=== PATIENT | male | born 1990 | race Caucasian/White ===

== ENCOUNTER 2017-05-19 04:59 | Emergency (ER) | payer MEDICAID, SELFPAY ==
[2017-05-19 05:00] VITALS: BP 143/128; PULSE 86; RESP 18; TEMP 36.8; O2SAT 100; BMI 25.0
--- NOTE | 2017-05-19 05:18 | NURSING ---
THIS RN AND SPOKE WITH PATIENT ABOUT WHAT HAPPENED THIS EVENING. PT STATES HE IS NOT SUICIDAL OR HOMICIDAL.
--- NOTE | 2017-05-19 05:22 | ED.VISSUMM ---
- ER Visit Summary Date of Service: 05/19/17 Chief Complaint: Psychiatric evaluation History of Present Illness: The patient is a 26 M presenting for evaluation secondary to psychiatric evaluation. Patient has a history of quadriplegia and is living in a [facility] facility. Apparently the patient recently learned that his girlfriend had cheated on him. Nursing staff states that the patient threatened to hang himself with his phone cord. They states that when they told him that they would take away his phone cord that he said that he would hang himself with his bed sheets. Patient actually denies being suicidal homicidal and denies any allegations of being suicidal. He denies any constitutional symptoms at this time. Physical Examination: Vital signs within normal limits. Well-nourished male no acute distress. Neck supple heart regular lungs clear abdomen soft nontender. Patient alert and oriented, quadriplegia unchanged in the patient. Patient has normal speech pattern logical goal directed sequential thoughts no suicidal or homicidal ideation normal stable appropriate affect good insight good judgment. Test Results: None indicated Emergency Department Course and Treatment: Patient presented for a psychiatric evaluation. Nursing staff states that the patient threatened to hang himself with multiple different things within his room. 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 Patient states that he would never actually hurt himself though because he has a 2-year-old daughter. Agent states that when nursing staff threatened to take his charging cord he started to list off the variety of other ways that he could kill himself if he wanted to but states that he has no desire to do so. While the patient is being cooperative in the emergency department and easy to deal with, he is strong-willed and I can understand that potentially he is difficult to deal with on a day-to-day basis at his [facility]. Potentially was sent to the emergency department out of an element of frustration, but I believe the patient not to be a risk to himself or others at this point and I do not believe that full psychiatric workup and evaluation by crisis is appropriate at this point. Patient did verbally contract for safety, and I believe the patient can safely be discharged back to the [facility]. Disposition: Discharge Impression: 1. Psychiatric evaluation 2. History of quadriplegia This note was generated with [employer] dictation software. It may contain incorrect words, spelling, and punctuation that were not noted in review of the chart prior to signing ED Disposition - Plan for ED Patient: Disposition: Home or Assisted Living Chief Complaint: Suicidal Diagnosis: Encounter for psychological evaluation Instructions: ED Blank Diagnosis Form Referrals: Frank Ibarra [Primary Care Provider] - As Needed
--- NOTE | 2017-05-19 05:30 | ED.DCSUM_ITS ---
- ER Visit Summary Date of Service: 05/19/17 Chief Complaint: Psychiatric evaluation History of Present Illness: The patient is a 26 M presenting for evaluation secondary to psychiatric evaluation. Patient has a history of quadriplegia and is living in a [facility] facility. Apparently the patient recently learned that his girlfriend had cheated on him. Nursing staff states that the patient threatened to hang himself with his phone cord. They states that when they told him that they would take away his phone cord that he said that he would hang himself with his bed sheets. Patient actually denies being suicidal homicidal and denies any allegations of being suicidal. He denies any constitutional symptoms at this time. Physical Examination: Vital signs within normal limits. Well-nourished male no acute distress. Neck supple heart regular lungs clear abdomen soft nontender. Patient alert and oriented, quadriplegia unchanged in the patient. Patient has normal speech pattern logical goal directed sequential thoughts no suicidal or homicidal ideation normal stable appropriate affect good insight good judgment. Test Results: None indicated Emergency Department Course and Treatment: Patient presented for a psychiatric evaluation. Nursing staff states that the patient threatened to hang himself with multiple different things within his room. 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 Patient states that he would never actually hurt himself though because he has a 2-year-old daughter. Agent states that when nursing staff threatened to take his charging cord he started to list off the variety of other ways that he could kill himself if he wanted to but states that he has no desire to do so. While the patient is being cooperative in the emergency department and easy to deal with, he is strong-willed and I can understand that potentially he is difficult to deal with on a day-to-day basis at his long-term. Potentially was sent to the emergency department out of an element of frustration, but I believe the patient not to be a risk to himself or others at this point and I do not believe that full psychiatric workup and evaluation by crisis is appropriate at this point. Patient did verbally contract for safety, and I believe the patient can safely be discharged back to the long-term. Disposition: Discharge Impression: 1. Psychiatric evaluation 2. History of quadriplegia This note was generated with [employer] dictation software. It may contain incorrect words, spelling, and punctuation that were not noted in review of the chart prior to signing ED Disposition - Plan for ED Patient: Disposition: Home or Assisted Living Chief Complaint: Suicidal Diagnosis: Encounter for psychological evaluation Instructions: ED Blank Diagnosis Form Referrals: Frank Ibarra [Primary Care Provider] - As Needed
--- NOTE | 2017-05-19 05:43 | NURSING ---
THIS RN SPOKE WITH SHAYNA FROM [facility] AND INFORMED HER PT WOULD BE RETURNING TO [facility] WHEN TRANSPORT IS AVAILABLE. DEVELOPMENT TEAM LEAD VERBALIZED UNDERSTANDING
[2017-05-19 06:25] VITALS: RESP 16
== END 2017-05-19 06:26 | disposition home or self-care (01) ==
PROVIDERS: Emergency Provider Emergency Medicine; Family Provider Family Medicine; PCP Family Medicine
DX: G82.50 Quadriplegia, unspecified (principal)
CPT/HCPCS: 99284

== ENCOUNTER 2017-09-28 15:19 | Emergency (ER) | payer MEDICAID, SELFPAY ==
[2017-09-28 15:22] VITALS: BP 184/145; PULSE 88; RESP 18; TEMP 36.7; O2SAT 98; BMI 19.6
--- NOTE | 2017-09-28 15:51 | VDLE_ITS ---
Reason For Study: PAIN Procedure LEFT Exam performed portable in ED. GSV is normal. Pt is a paraplegic. CFV is compressible, spontaneous, phasic, A preliminary report was called and/or faxed competent, and demonstrates normal to ED. augmentation. FV is compressible, spontaneous, phasic, competent and demonstrates normal augmentation. POP V is compressible, spontaneous, phasic, competent and demonstrates normal augmentation. T/P Trunk is compressible. PTV is compressible. LT PerV is compressible. Interpretation Summary Deep veins of the left lower extremity are patent and compressible segmentally. There is no evidence of left lower extremity deep vein thrombosis. Valvular competence appears intact within the proximal deep venous system on the left . The left greater saphenous vein appears patent and compressible segmentally. Ordering Physician: Sidney Peralta Referring Physician: ADAM LORA Performed By: Jennifer Villegas, TC, RVT
--- NOTE | 2017-09-28 15:51 | RAD_ITS ---
STUDY: X-RAY - LUMBAR SPINE REASON FOR EXAM: Male, 26 years old. Back pain. TECHNIQUE: 3 view(s) of the lumbar spine were obtained. COMPARISON: CT of the lumbar spine, May 05, 2016 FINDINGS: Normal lumbar lordosis. There is no substantial scoliosis. There is a normal alignment of the vertebrae. Normal vertebral bodies and endplates. Normal disc space heights. There is no evidence of acute fracture or loss of vertebral axial height. The soft tissue structures are unremarkable. RAD/Lumbar Spine 2 or 3 Views IMPRESSION: No acute abnormality of the lumbar spine or major interval change. Electronically Signed: Michael Palacios DO at 17:47 EDT Tel [phone], Service support ,
--- NOTE | 2017-09-28 15:54 | ED.VISSUMM ---
- ER Visit Summary Date of Service: 09/28/17 Chief Complaint: Back pain History of Present Illness: The patient is a 26 M with a history of paraplegia. He is bedbound. He presents with increasing lower back pain. Denies any new injuries. He also has pain and swelling down his left leg into his foot. Denies any history of DVT. Denies any abdominal pain or GI symptoms. Denies symptoms. Denies fever. He does have some numbness and tingling in his left leg. Patient also reports that his left foot was in the sun and he believes he has a sunburn to the left foot.. Physical Examination: Hypertensive. Otherwise vitals unremarkable. Patient alert and oriented. Heart regular. Lungs clear. Abdomen soft and nontender. Lumbar spine diffusely tender to palpation. Overlying skin appears normal. Lower extremity exam shows paraplegia. On inspection he has some erythema to his left foot that ends abruptly in a discrete line at the level of his pant leg. Left leg is diffusely swollen about the foot and ankle. Good range of motion to the joints. Patient reports no sensation in his lower extremities. Test Results: Lumbar spine x-ray and duplex of the left leg pending. Emergency Department Course and Treatment: Patient treated with morphine, Zofran, and labetalol while awaiting results. Ultrasound was negative. Lumbar x-ray showed degenerative changes. Nothing acute. Repeat blood pressure was within normal limits. Patient required additional pain medication. There is nothing to suggest infection, GI, , vascular pathology. Patient will be discharged to his nursing facility. Follow-up with his doctor and/or pain management. Return for any new or worsening symptoms Treatment Plan: As above Disposition: Discharged Impression: 1. Chronic lumbar back pain This note was generated with Vanderdroidation software. It may contain incorrect words, spelling, and punctuation that were not noted in review of the chart prior to signing ED Disposition - Plan for ED Patient: Chief Complaint: Lower Extremity Injury Referrals: Frank Ibarra MD [Primary Care Provider] -
--- NOTE | 2017-09-28 15:57 | ED.DCSUM_ITS ---
- ER Visit Summary Date of Service: 09/28/17 Chief Complaint: Back pain History of Present Illness: The patient is a 26 M with a history of paraplegia. He is bedbound. He presents with increasing lower back pain. Denies any new injuries. He also has pain and swelling down his left leg into his foot. Denies any history of DVT. Denies any abdominal pain or GI symptoms. Denies symptoms. Denies fever. He does have some numbness and tingling in his left leg. Patient also reports that his left foot was in the sun and he believes he has a sunburn to the left foot.. Physical Examination: Hypertensive. Otherwise vitals unremarkable. Patient alert and oriented. Heart regular. Lungs clear. Abdomen soft and nontender. Lumbar spine diffusely tender to palpation. Overlying skin appears normal. Lower extremity exam shows paraplegia. On inspection he has some erythema to his left foot that ends abruptly in a discrete line at the level of his pant leg. Left leg is diffusely swollen about the foot and ankle. Good range of motion to the joints. Patient reports no sensation in his lower extremities. Test Results: Lumbar spine x-ray and duplex of the left leg pending. Emergency Department Course and Treatment: Patient treated with morphine, Zofran , and labetalol while awaiting results. Ultrasound was negative. Lumbar x-ray showed degenerative changes. Nothing acute. Repeat blood pressure was within normal limits. Patient required additional pain medication. There is nothing to suggest infection, GI, , vascular pathology. Patient will be discharged to his nursing facility. Follow -up with his doctor and/or pain management. Return for any new or worsening symptoms Treatment Plan: As above Disposition: Discharged Impression: 1. Chronic lumbar back pain This note was generated with [employer] software. It may contain incorrect words, spelling, and punctuation that were not noted in review of the chart prior to signing ED Disposition - Plan for ED Patient: Chief Complaint: Lower Extremity Injury Referrals: Frank Ibarra MD [Primary Care Provider] -
[2017-09-28] MEDS: Morphine 4 MG/ML Syringe IV (17:00)
[2017-09-28] MEDS: Ondansetron 4 MG/2 ML Vial IV (17:00)
[2017-09-28 18:25] VITALS: BP 117/81; PULSE 96; RESP 18; O2SAT 96
--- NOTE | 2017-09-28 18:36 | ED.DEP ---
ED Disposition - Plan for ED Patient: Chief Complaint: Lower Extremity Injury Instructions: ED Chronic Pain Management Referrals: Frank Ibarra MD [Primary Care Provider] -
[2017-09-28 19:06] VITALS: BP 83/66; PULSE 73; RESP 14; O2SAT 98
--- NOTE | 2017-09-28 19:08 | NURSING ---
Entered room to administer Morphine as ordered. Pt found to be hypotensive. Md Peralta notified and orders received.
[2017-09-28] MEDS: 0.9% Normal Saline 1,000 ML 500 ML IV (19:16)
[2017-09-28 19:52] VITALS: BP 107/76; PULSE 79; RESP 18; O2SAT 96
[2017-09-28] MEDS: Ketorolac 15 MG/ML Vial IV (20:23)
[2017-09-28 20:24] VITALS: BP 108/97; PULSE 74; RESP 16; O2SAT 96
[2017-09-28 21:12] VITALS: BP 114/68; PULSE 91; RESP 20
[2017-09-28] MEDS: fentaNYL 100 MCG/2 ML Ampul 25 MCG IV (21:20)
== END 2017-09-28 22:03 | disposition home or self-care (01) ==
LOC: ED 15:57
PROVIDERS: Emergency Provider Emergency Medicine; Family Provider Family Medicine; PCP Family Medicine
DX: M54.5 Low back pain (principal); G89.29 Other chronic pain; G82.20 Paraplegia, unspecified; F17.210 Nicotine dependence, cigarettes, uncomplicated; Z87.440 Personal history of urinary (tract) infections; Z79.02 Long term (current) use of antithrombotics/antiplatelets; Z79.891 Long term (current) use of opiate analgesic; Z79.899 Other long term (current) drug therapy
CPT/HCPCS: 72100; 93971; 96361; 96374; 96375; 99285; J7030; A4216; J2405

== ENCOUNTER 2017-10-30 01:19 | Emergency (ER) | payer MEDICAID, SELFPAY ==
[2017-10-30 01:23] VITALS: BP 112/50; PULSE 86; RESP 15; TEMP 37.3; O2SAT 99; BMI 22.6
[2017-10-30] MEDS: Ondansetron 4 MG/2 ML Vial IV (01:53)
[2017-10-30] MEDS: 0.9% Normal Saline 1,000 ML 1000 ML IV (01:53)
[2017-10-30 01:57] LABS: Absolute Lymphocyte Count 0.41 X10^3/ul (0.83-4.51); Absolute Neutrophil Count 10.8 X10^3/uL (2.0-7.7); Basophil# 0.02 X10^3/uL; Basophil% 0.2 % (0-1); Eosinophil# 0.05 X10^3/uL; Eosinophils% 0.4 % (0-5); Hematocrit 45.7 % (40-54); Hemoglobin 15.4 g/dl (13.0-16.5); Lymphocyte # 0.41 X10^3/ul (4.0); Lymphocyte % 3.4 % (19-41); Mean Corp Hgb Conc 33.7 g/gl (32-36); Mean Corpuscular Hgb 31.1 pg (27.0-32.0); Mean Corpuscular Volume 92.3 fL (80-94); Mean Platelet Vol. 11.5 fl (6.2-12.0); Monocyte# 0.89 X10^3/uL; Monocyte% 7.3 % (0-10); Neutrophil # 10.81 X10^3/uL (2.7-7.7); Neutrophil % 88.4 % (47-70); Platelet Count 116 K/mm3 (150-450); RBC Distribution Width CV 14.6 % (11.6-14.6); Red Blood Count 4.95 M/mm3 (4.6-6.2); White Blood Count 12.2 K/mm3 (4.4-11.0)
[2017-10-30 02:02] LABS: POSITIVE COUNT NO; POSITIVE MORPHOLOGY NO
[2017-10-30 02:05] LABS: Differential Indicated SCAN CRITERIA MET; POSITIVE DIFFERENTIAL YES
[2017-10-30 02:08] LABS: Anion Gap 6 (5-15); BUN 6 mg/dL (7-18); BUN/Creat Ratio 14.1 RATIO (10-20); Calcium,Total 8.6 mg/dL (8.5-10.1); Chloride 107 mmol/L (98-107); Creatinine, Serum 0.42 mg/dL (0.70-1.30); EST Glomerular Filtration Rate 256 mL/min (>60); Est Glom Filt Rate - Afr Amer 310 mL/min (>60); Estimated Creatinine Clearance 254.84 ml/min; Glucose 132 mg/dL (74-106); Potassium 3.8 mmol/L (3.5-5.1); Sodium Level 141 mmol/L (136-145)
[2017-10-30 02:23] LABS: Differential Comment SCANNED
[2017-10-30 03:59] VITALS: BP 125/53; PULSE 67; RESP 15; O2SAT 97
--- NOTE | 2017-10-30 04:00 | ED.VISSUMM ---
- ER Visit Summary Date of Service: 10/30/17 Chief Complaint: Patient presents because of nausea and vomiting. History of Present Illness: The patient is a 26 M who was seen yesterday at [facility] facility. His records were obtained and reviewed and documented on written chart. He has significant workup. The nausea and vomiting are new since his visit at outside facility. He reports nausea and vomiting several times today. He also reports swollen left forearm with redness to his skin. He states the abrasions are secondary to blunt trauma. He denies fever, chills night sweats. He denies headache, visual, ocular auditory symptoms. He denies any chest pain or shortness of breath. He denies cough. He does report mild epigastric pain with nausea and vomiting. He has a colostomy and has had no diarrhea, blood or maroon colored stool. He is paraplegic. Physical Examination: Vital signs are marked for slight elevation blood pressure 125/53. He is not hypoxic nor is he febrile. HEENT is remarkable poor dentition and dry mucosa. Pupils equal round reactive paradoxic muscle intact. Sclerae anicteric. TMs normal. Trach is midline. Neck is supple. There is no cervical lymphadenopathy. Lungs are clear to auscultation. Heart is regular. Abdomen is soft nontender. Colostomy noted left side and functional. He has mild edema of both lower extremities. Suspect dependent edema since he is paraplegic. Examination left forearm reveals cellulitis. There is no epitrochlear or axillary lymphadenopathy. There are abrasions and most likely nidus for his infection. Test Results: White count is elevated 12.2 with 88 segs. His white count was elevated yesterday from outside facility records. Electronic panels unremarkable. Emergency Department Course and Treatment: To evaluate patient since he has evidence of cellulitis left forearm CBC, BMP were obtained and compared to results from yesterday. He received a gram of Ancef. After reviewing his records Bactrim was added since there is a history of MRSA. Since he does not meet sepsis criteria who will be discharged back to nursing facility. Treatment Plan: Prescription for cephalexin 500 mg 4 times daily and Bactrim DS twice daily for 7 days. Disposition: Discharged to return to nursing facility Impression: 1. Cellulitis left forearm initial encounter 2. Nausea and vomiting 3. History of paraplegia 4. History of MRSA 5. History of depression anxiety This note was generated with Dragon dictation software. It may contain incorrect words, spelling, and punctuation that were not noted in review of the chart prior to signing ED Disposition - Plan for ED Patient: Disposition: Longterm Facility Chief Complaint: Nausea/Vomiting Instructions: ED Nausea Vomiting, ED Infec Skin Cellulitis Prescriptions: Smz/Tmp Ds [Bactrim Ds] 1 tab PO BID #14 tab Cephalexin 500 mg PO 4X/DAY #28 cap Referrals: Frank Ibarra MD [Primary Care Provider] - 3-5 Days if not improving
[2017-10-30] MEDS: Cefazolin 1 GM/50 ML BAG IV (04:02)
[2017-10-30] MEDS: Smz/Tmp Ds Tablet 1 TABLET PO (04:04)
--- NOTE | 2017-10-30 04:43 | ED.RN ---
ATTEMPTED TO CALL REPORT TO [facility] BUT NO ONE ANSWERED THE PHONE EITHER TIME AN ATTEMPT WAS MADE.
[2017-10-30 04:44] VITALS: BP 107/65; PULSE 75; RESP 16; O2SAT 95
== END 2017-10-30 05:02 | disposition skilled nursing facility (03) ==
PROVIDERS: Emergency Provider Emergency Medicine; Family Provider Family Medicine; PCP Family Medicine
DX: L03.114 Cellulitis of left upper limb (principal); R11.2 Nausea with vomiting, unspecified; G82.20 Paraplegia, unspecified; E86.0 Dehydration; F32.9 Major depressive disorder, single episode, unspecified; F41.9 Anxiety disorder, unspecified; Z86.14 Personal history of Methicillin resistant Staphylococcus aureus infection; Z93.3 Colostomy status; Z79.891 Long term (current) use of opiate analgesic; Z79.899 Other long term (current) drug therapy
CPT/HCPCS: 80048; 85025; 96361; 96365; 96375; 99285; A4216; J2405

== ENCOUNTER 2017-12-05 12:54 | Emergency (ER) | payer MEDICAID, SELFPAY ==
[2017-12-05 12:55] VITALS: BP 103/63; PULSE 72; RESP 16; TEMP 36.6; O2SAT 96; BMI 19.5
--- NOTE | 2017-12-05 13:31 | RAD_ITS ---
STUDY: X-RAY - LEFT FOOT CLINICAL: Left foot pain, fracture and abscess on left foot. History of transverse myelitis. TECHNIQUE: 3 view(s) of the foot. COMPARISON: None. FINDINGS: There is osteopenia. There is collapse of the lateral aspect of the navicular suggestive of Romano Farr syndrome. Normal visualized subtalar, talonavicular, calcaneocuboid, tarsal and tarsometatarsal articulations. Normal metatarsi. Normal metatarsophalangeal joint of the great toe. Normal tibial and fibular sesamoid bones. Normal interphalangeal joint of the great toe. Normal phalanges of the great toe. Normal second through fifth metatarsophalangeal joints. Normal interphalangeal joints and phalanges of the lesser toes. There is mild soft tissue swelling at the dorsal aspect of the proximal forefoot. 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 Electronically Signed: Chente Alvarado MD at 14:52 EDT Tel , Service support ,
[2017-12-05 13:50] LABS: Absolute Lymphocyte Count 1.49 X10^3/ul (0.83-4.51); Absolute Neutrophil Count 3.7 X10^3/uL (2.0-7.7); Basophil# 0.02 X10^3/uL; Basophil% 0.3 % (0-1); Eosinophil# 0.15 X10^3/uL; Eosinophils% 2.6 % (0-5); Hematocrit 45.3 % (40-54); Hemoglobin 14.5 g/dl (13.0-16.5); Lymphocyte # 1.49 X10^3/ul (4.0); Lymphocyte % 25.6 % (19-41); Mean Corpuscular Hgb 29.9 pg (27.0-32.0); Mean Corpuscular Volume 93.4 fL (80-94); Mean Platelet Vol. 10.9 fl (6.2-12.0); Monocyte# 0.47 X10^3/uL; Monocyte% 8.1 % (0-10); Neutrophil # 3.69 X10^3/uL (2.7-7.7); Neutrophil % 63.2 % (47-70); POSITIVE COUNT NO; POSITIVE DIFFERENTIAL NO; POSITIVE MORPHOLOGY NO; Platelet Count 149 K/mm3 (150-450); Red Blood Count 4.85 M/mm3 (4.6-6.2); White Blood Count 5.8 K/mm3 (4.4-11.0)
[2017-12-05] MEDS: Morphine 2 MG/ML Syringe IV (13:56)
[2017-12-05 14:01] VITALS: RESP 12
[2017-12-05 14:04] LABS: Anion Gap 8 (5-15); BUN 11 mg/dL (7-18); BUN/Creat Ratio 26.4 RATIO (10-20); Calcium,Total 8.9 mg/dL (8.5-10.1); Chloride 107 mmol/L (98-107); Creatinine, Serum 0.42 mg/dL (0.70-1.30); EST Glomerular Filtration Rate 261 mL/min (>60); Est Glom Filt Rate - Afr Amer 316 mL/min (>60); Glucose 88 mg/dL (74-106); Potassium 3.5 mmol/L (3.5-5.1); Sodium Level 142 mmol/L (136-145)
--- NOTE | 2017-12-05 15:22 | ED.VISSUMM ---
- ER Visit Summary Date of Service: 12/05/17 Chief Complaint: Left foot infection and back pain History of Present Illness: The patient is a 27 M who has a history of transverse myelitis is paraplegic. He states that he was discharged from senior care about 2 weeks ago. In the interim he has developed a blister on the heel of his left foot. He has had prior cellulitis in the foot. He does not have any sensations or cannot say if it is painful part or not. He reports that his significant other took a sterile needle and popped the blister and a large amount of pus came out. She has been doing local wound care for it. He states he has a primary care physician appointment as a new patient on the this month. He states he has pain in his back beginning this morning. He states from time to time he has this pain is related to muscle spasms. He takes oxycodone and baclofen as some of his medications. Physical Examination: Afebrile vital signs stable Gen: Well-nourished well-developed Head: Normocephalic atraumatic Eyes: Perrl EOMI ENT: TMs clear no rhinorrhea moist mucous membranes Neck: Supple no lymphadenopathy no JVD nontender CVS: Regular rate rhythm no murmurs normal S1-S2 Respiratory: No distress clear to auscultation bilaterally chest nontender Abdomen: Soft nontender nondistended normal bowel sounds no masses Back: Painful range of motion. Tender to palpation of the paraspinal musculature Extremity: Nontender there is a deroofed blister on the heel of left foot. There is some mild surrounding erythema. No crepitance. The left foot itself is mildly swollen. This is a chronic finding per the patient. Skin: Normal color no rash Neuro: alert orientated ?3 CN II-XII intact Psych: Normal affect normal mood Test Results: X-rays do not reveal any foreign body obvious osteomyelitis or gas or motion in the heel. Osteopenia noted as well as other chronic changes. CBC showed a platelet count of 149 of uncertain significance. Chemistries negative. Emergency Department Course and Treatment: Patient received morphine for pain and is improved on repeat examination. I am going to write for him to have Keflex and Bactrim. Wound culture was obtained. The patient will need follow-up and I will refer to wound care clinic. He is to monitor for changes return if worsening. Impression: 1. Acute on chronic back pain 2. Left foot cellulitis 3. Thrombocytopenia This note was generated with Ping[employer]amp dictation software. It may contain incorrect words, spelling, and punctuation that were not noted in review of the chart prior to signing ED Disposition - Plan for ED Patient: Disposition: Home or Assisted Living Chief Complaint: Back Instructions: ED Spasm Back No Trauma, ED Infec Skin Cellulitis Prescriptions: Cephalexin [Keflex] 500 mg PO Q6 #40 cap Smz/Tmp Ds [Bactrim Ds] 1 tab PO BID #20 tab Additional Instructions: Please call the wound care clinic for follow-up at
--- NOTE | 2017-12-05 15:27 | ED.DCSUM_ITS ---
- ER Visit Summary Date of Service: 12/05/17 Chief Complaint: Left foot infection and back pain History of Present Illness: The patient is a 27 M who has a history of transverse myelitis is paraplegic. He states that he was discharged from assisted about 2 weeks ago. In the interim he has developed a blister on the heel of his left foot. He has had prior cellulitis in the foot. He does not have any sensations or cannot say if it is painful part or not. He reports that his significant other took a sterile needle and popped the blister and a large amount of pus came out. She has been doing local wound care for it. He states he has a primary care physician appointment as a new patient on the this month. He states he has pain in his back beginning this morning. He states from time to time he has this pain is related to muscle spasms. He takes oxycodone and baclofen as some of his medications. Physical Examination: Afebrile vital signs stable Gen: Well-nourished well-developed Head: Normocephalic atraumatic Eyes: Perrl EOMI ENT: TMs clear no rhinorrhea moist mucous membranes Neck: Supple no lymphadenopathy no JVD nontender CVS: Regular rate rhythm no murmurs normal S1-S2 Respiratory: No distress clear to auscultation bilaterally chest nontender Abdomen: Soft nontender nondistended normal bowel sounds no masses Back: Painful range of motion. Tender to palpation of the paraspinal musculature Extremity: Nontender there is a deroofed blister on the heel of left foot. There is some mild surrounding erythema. No crepitance. The left foot itself is mildly swollen. This is a chronic finding per the patient. Skin: Normal color no rash Neuro: alert orientated ?3 CN II-XII intact Psych: Normal affect normal mood Test Results: X-rays do not reveal any foreign body obvious osteomyelitis or gas or motion in the heel. Osteopenia noted as well as other chronic changes. CBC showed a platelet count of 149 of uncertain significance. Chemistries negative. Emergency Department Course and Treatment: Patient received morphine for pain and is improved on repeat examination. I am going to write for him to have Keflex and Bactrim. Wound culture was obtained. The patient will need follow- up and I will refer to wound care clinic. He is to monitor for changes return if worsening. Impression: 1. Acute on chronic back pain 2. Left foot cellulitis 3. Thrombocytopenia This note was generated with [employer]okeen dictation software. It may contain incorrect words, spelling, and punctuation that were not noted in review of the chart prior to signing ED Disposition - Plan for ED Patient: Disposition: Home or Assisted Living Chief Complaint: Back Instructions: ED Spasm Back No Trauma, ED Infec Skin Cellulitis Prescriptions: Cephalexin [Keflex] 500 mg PO Q6 #40 cap Smz/Tmp Ds [Bactrim Ds] 1 tab PO BID #20 tab Additional Instructions: Please call the wound care clinic for follow-up at
[2017-12-05 15:56] VITALS: BP 117/74; PULSE 72; RESP 18; O2SAT 99
[2017-12-05 15:59] LABS: Probe Check PASS; Staph aureus DNA By PCR POSITIVE (Negative)
[2017-12-05 16:03] LABS: M R Staph aureus DNA By PCR POSITIVE (Negative)
--- NOTE | 2017-12-05 16:14 | ED.RN ---
pt is pos for mrsa. pt prescribed correct meds and dr ochoa aware
== END 2017-12-05 15:57 | disposition home or self-care (01) ==
PROVIDERS: Emergency Provider Emergency Medicine
DX: M54.9 Dorsalgia, unspecified (principal); G89.29 Other chronic pain; L03.116 Cellulitis of left lower limb; D69.6 Thrombocytopenia, unspecified; G37.3 Acute transverse myelitis in demyelinating disease of central nervous system; F32.9 Major depressive disorder, single episode, unspecified; Z79.891 Long term (current) use of opiate analgesic; Z79.899 Other long term (current) drug therapy
CPT/HCPCS: 73630; 80048; 85025; 87070; 87077; 87186; 87205; 87640; 96374; 99283; A4216

== ENCOUNTER 2017-12-15 03:39 | Emergency (ER) | payer MEDICAID, SELFPAY ==
[2017-12-15 03:42] VITALS: BP 154/85; PULSE 83; RESP 18; TEMP 36.1; O2SAT 97; BMI 27.4
--- NOTE | 2017-12-15 04:15 | ED.DCSUM_ITS ---
- ER Visit Summary Date of Service: 12/15/17 Chief Complaint: [] Nausea intermittent dry heaves at nighttime. History of Present Illness: The patient is a 27 M [] she stated over the last few days she has had nausea with dry heaves at night. During the day he seems to be doing okay. He has decreased oral intake of food but drinking fluids. Is not sleeping well. His ostomy is putting out a little bit more diarrhea than normal. There are main concern is that he is likely withdrawing from his narcotics. He was on oxycodone 40 mg twice a day but insurance will not cover it so he was recently changed to Percocet 10 mg twice a day. He also has been off oral morphine since Sunday. He was discharged from [facility] on Sunday as he had altered mental status. They stopped his sertraline as well and felt like he was oversedated. He did get admitted. He saw his family doctor who is a new doctor on . He has been using Zofran with minimal relief. Most of his symptoms are at night. Physical Examination: [] Vital signs reviewed General: Well-nourished well-developed Head: Normocephalic atraumatic Eyes: Pupils equal round and reactive to light extraocular movements intact ENT: TMs clear no hemotympanum no trauma Neck: Nontender full range of motion Cardiovascular: Regular rate rhythm no murmurs normal S1-S2 Respiratory: No distress clear to auscultation bilaterally chest nontender Abdomen: Soft nontender nondistended normal bowel sounds no masses Back: Nontender no CVA tenderness Extremities: Nontender show any paraplegia Skin: Normal color no trauma Neuro alert oriented cranial nerves II through XII intact show any paraplegia Test Results: [] Emergency Department Course and Treatment: [] IV fluids and Phenergan for his symptoms. Lab work obtained. Electrolytes essentially unremarkable. Creatinine 0.5. [place] better after treatment. Was able to rest some. I think he likely is having a little bit of withdrawal symptoms. He will follow-up with his family doctor as an outpatient and they may make some changes to his pain medication regimen. Given a prescription for Phenergan Treatment Plan: [] Disposition: [] Impression: [] Nausea vomiting and insomnia. Suspected narcotic withdrawal This note was generated with Nitrone[employer] software. It may contain incorrect words, spelling, and punctuation that were not noted in review of the chart prior to signing ED Disposition - Plan for ED Patient: Chief Complaint: Nausea/Vomiting/Diarrhea Referrals: Quinten Doan DO [Primary Care Provider] -
[2017-12-15] MEDS: 0.9% Normal Saline 1,000 ML 1000 ML IV (04:22)
[2017-12-15] MEDS: proMETHazine 25 MG/ML Syringe 12.5 MG IV (04:25)
[2017-12-15 04:39] LABS: Anion Gap 10 (5-15); BUN 14 mg/dL (7-18); BUN/Creat Ratio 28.1 RATIO (10-20); Calcium,Total 9.1 mg/dL (8.5-10.1); Chloride 107 mmol/L (98-107); EST Glomerular Filtration Rate 213 mL/min (>60); Est Glom Filt Rate - Afr Amer 258 mL/min (>60); Estimated Creatinine Clearance 156.94 ml/min; Glucose 101 mg/dL (74-106); Potassium 3.8 mmol/L (3.5-5.1); Sodium Level 141 mmol/L (136-145)
--- NOTE | 2017-12-15 04:48 | ED.DEP ---
ED Disposition - Plan for ED Patient: Disposition: Home or Assisted Living Chief Complaint: Nausea/Vomiting/Diarrhea Instructions: ED Withdrawal Narcotic Prescriptions: proMETHazine tablet [Phenergan] 25 mg PO Q6H PRN PRN #10 tab PRN Reason: Nausea Referrals: Quinten Doan DO [Primary Care Provider] -
[2017-12-15 06:49] VITALS: BP 119/71; PULSE 79; RESP 15; O2SAT 97
== END 2017-12-15 06:51 | disposition home or self-care (01) ==
PROVIDERS: Emergency Provider Emergency Medicine; Family Provider Family Medicine; PCP Family Medicine
DX: R11.2 Nausea with vomiting, unspecified (principal); G47.00 Insomnia, unspecified; G82.20 Paraplegia, unspecified; G37.3 Acute transverse myelitis in demyelinating disease of central nervous system; Z72.0 Tobacco use; Z79.2 Long term (current) use of antibiotics; Z79.891 Long term (current) use of opiate analgesic; Z79.899 Other long term (current) drug therapy
CPT/HCPCS: 80048; 96361; 96374; 99283; A4216

== ENCOUNTER 2018-01-02 17:38 | Observation (INO) | payer MEDICAID, SELFPAY ==
[2018-01-02 17:39] VITALS: BP 123/94; PULSE 83; RESP 16; TEMP 36.4; O2SAT 98; BMI 23.3
--- NOTE | 2018-01-02 17:44 | CM.ED ---
Addendum entered by Kallie Padron 01/02/18 18:09: Social Work Note ED physician updated. GEORGES Durbin, AUDIT INTERN Original Note: Social Work Note Face to face with pt to discuss discharge planning. Introduced self and role at [facility]. The pt is paraplegic and his primary caregiver is currently hospitalized. They have been working on placing him at [facility], but it was not authorized today. States that he believes it will be tomorrow, but he cannot care for himself. Family present with him confirms that no one can stay with him through the night. Inform that SW will discuss case with physician to see if he could be admitted under observation while they await pre-cert. Placed call to [facility] to verify that nothing could be expedited. No admissions staff in currently and per staff member their usual conference service coordinator is out on vacation, so she would not have anyone to contact after hours. Will discuss with physician once a physician is assigned. SW to continue to follow and assist with discharge planning. Plan: [facility] pending authorization. GEORGES Durbin, AUDIT INTERN
[2018-01-02] MEDS: 0.9% Normal Saline 1,000 ML 150 ML IV ×2 (19:49→22:44)
[2018-01-02 19:54] LABS: Absolute Lymphocyte Count 1.18 X10^3/ul (0.83-4.51); Absolute Neutrophil Count 4.5 X10^3/uL (2.0-7.7); Basophil# 0.03 X10^3/uL; Basophil% 0.5 % (0-1); Eosinophil# 0.16 X10^3/uL; Eosinophils% 2.5 % (0-5); Hematocrit 46.8 % (40-54); Hemoglobin 15.5 g/dl (13.0-16.5); Lymphocyte # 1.18 X10^3/ul (4.0); Lymphocyte % 18.1 % (19-41); Mean Corp Hgb Conc 33.1 g/gl (32-36); Mean Corpuscular Hgb 30.6 pg (27.0-32.0); Mean Corpuscular Volume 92.5 fL (80-94); Monocyte# 0.58 X10^3/uL; Monocyte% 8.9 % (0-10); Neutrophil # 4.54 X10^3/uL (2.7-7.7); Neutrophil % 69.5 % (47-70); POSITIVE COUNT NO; POSITIVE DIFFERENTIAL NO; POSITIVE MORPHOLOGY NO; Platelet Count 151 K/mm3 (150-450); RBC Distribution Width CV 14.9 % (11.6-14.6); RBC Distribution Width SD 49.7 fl (35.1-43.9); Red Blood Count 5.06 M/mm3 (4.6-6.2); White Blood Count 6.5 K/mm3 (4.4-11.0)
[2018-01-02 20:15] LABS: Anion Gap 6 (5-15); BUN 8 mg/dL (7-18); BUN/Creat Ratio 18.3 RATIO (10-20); Calcium,Total 9.3 mg/dL (8.5-10.1); Chloride 107 mmol/L (98-107); Creatinine, Serum 0.44 mg/dL (0.70-1.30); EST Glomerular Filtration Rate 247 mL/min (>60); Est Glom Filt Rate - Afr Amer 299 mL/min (>60); Estimated Creatinine Clearance 227.57 ml/min; Glucose 98 mg/dL (74-106); Potassium 3.9 mmol/L (3.5-5.1); Sodium Level 141 mmol/L (136-145)
[2018-01-02] MEDS: Baclofen 10 MG Tablet PO (20:21)
--- NOTE | 2018-01-02 20:40 | HP.PCM_ITS ---
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 He was admitted by the ED on 01/02/2018 because he was unable to take care of himself at home. His girlfriend lives with him and helps care for him, but she is on admission at [facility] for detox from benzos. Patient therefore is unable to care for himself and has no family who were able to care for him. His father tried getting his health insurance to approve halfway placement but they were unsuccessful and so he was brought to the ED. Patient currently complains of lower back pain which he states is due to him sitting for long. After coming to the ED. He denies any fever chills cough or chest pain, shortness of breath, abdominal pain, diarrhea vomiting. He is being admitted o/a of general debility due to paraplegia, for placement. 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, incomplete (Chronic) G82.22 Nicotine dependence (Chronic) F17.200 Decubitus skin ulcer (Chronic) Bilateral buttocks Transverse myelitis (Chronic) G37.3 Functional quadriplegia (Chronic) Neurogenic bladder with indwelling [place] (Chronic) Allergies adhesive tape Allergy (Verified 12/15/17 03:41) Rash aspirin Allergy (Verified 12/15/17 03:41) Unknown NSAIDS (Non-Steroidal Anti-Inflamma Allergy (Verified 12/15/17 03:41) Hives GREEN DYE Allergy (Uncoded 12/15/17 03:41) Unknown Home Medications: Ambulatory Orders Medication Instructions Recorded Acetaminophen [Tylenol Tablet] 650 mg PO Q6H PRN 02/09/16 Cholecalciferol (VIT D3) [Vitamin 2,000 unit PO DAILY 02/09/16 D3] Famotidine [Pepcid] 20 mg PO BID 03/29/16 Gabapentin [Neurontin] 800 mg PO 4X/DAY 04/25/16 Baclofen 20 mg PO 4X/DAY 10/11/16 Fluticasone 0.05% [Flonase Nasal 2 spray NASAL DAILY 10/11/16 [place]] Clonazepam [Klonopin] 1 mg PO QHS 09/28/17 Loratadine 10 mg PO DAILY 09/28/17 Ondansetron [Zofran Odt] 4 mg PO Q8H PRN PRN 12/15/17 Oxycodone HCl/Acetaminophen 1 tab PO Q6H PRN PRN 12/15/17 [Percocet 10-325 mg Tablet] Ranitidine [Zantac] 300 mg PO DAILY 12/15/17 proMETHazine tablet [Phenergan] 25 mg PO Q6H PRN PRN #10 tab 12/15/17 Surgical History: - - Tympanostomy tubes. PEG tube. colostomy (permanent). excision right ischial pressure sore, Stage IV, with partial ostectomy for osteomyelitis and excision left ischial pressure sore, Stage IV, with partial ostectomy for osteomyelitis - 02/10/16. Psychiatric History: Depression Lives: Spouse/ Significant Other Smoking Status: Current every day smoker Tobacco Use: Cigarettes Alcohol: None Drugs: None - *Family History Paternal History Items: No pertinent history Maternal History Items: No pertinent history Review of Systems Constitutional: Denies: Chills, Fever, Weight Change Eyes: Denies: Blurred vision HEENT: Denies: Head Aches, Sinus Congestion, Sinus Drainage Cardiovascular: Denies: Chest Pain, Chest Pressure, Chest Tightness, Orthopnea, Palpitations, Paroxysmal Noc. Dyspnea, Syncope Respiratory: Denies: Cough, Shortness of Breath, Shortness of breath at rest, Sputum production Gastrointestinal: Denies: Abdominal Pain, Nausea, Vomiting Genitourinary: Denies: Dysuria Musculoskeletal: Denies: Joint Pain, Joint Tenderness Skin: Denies: Rash, Wounds Neurological: Denies: Numbness, Tingling, Focal weakness Psychiatric: Denies: Anxiety, Depression, Homicidal Ideations, Suicidal Ideations Hematologic/ Lymphatic: Denies: Easy Bruising, Easy Bleeding VTE Information - Inpt Only VTE Present on Admission: No VTE Mechan Device Prophylaxis: None VTE Pharm Prophylaxis ordered?: Yes Patient Problems: Active and Suspected Problems Dehydration (Acute) Debility (Acute) - Physical Exam General: Alert, Oriented x3, Cooperative, No apparent distress HEENT: Atraumatic, PERRLA, EOMI, Normocephalic Oral: Moist Mucosa Neck: Supple, No JVD, Negative Carotid Bruits Lungs: Clear to auscultation, Normal air movement, No rhonchi, No wheeze, No rales Cardiovascular: Regular rate, Regular Rhythm, Normal S1, Normal S2, No murmurs Abdomen: Bowel Sounds Present, Soft, Non Tender, Non-Distended, No Hepato- splenomegaly, - - colostomy bag in place Extremities: No clubbing, No cyanosis, No edema, Capillary Refill Less than 3 Seconds Skin: No rashes, No breakdown Musculoskeletal: No Tenderness to Palpation of Joints or Extremities Lymphatic: No Cervical, Supraclavicular, or Inguinal Adenopathy Neurological: Cranial nerves II-XII grossly intact, - - paraplegia of LEs, Psych/Mental Status: Normal Affect, Appropriate, Alert and oriented to time, place, person, mood and affect Vital Signs Temp Pulse Resp BP Pulse Ox 97.5 F L 83 16 123/94 H 98 01/02/18 17:39 01/02/18 17:39 01/02/18 17:39 01/02/18 17:39 01/02/18 17:39 Oxygen Delivery Method Room Air Weight: 145 lb Body Mass Index (BMI) 23.3 Laboratory Tests Past 24 Hrs 01/02/18 01/02/18 19:40 19:40 WBC 6.5 RBC 5.06 Hgb 15.5 Hct 46.8 MCV 92.5 MCH 30.6 MCHC 33.1 RDW 14.9 H RDW Differential 49.7 H Plt Count 151 MPV 11.0 Immature Gran % (Auto) 0.500 Neut % (Auto) 69.5 Lymph % (Auto) 18.1 L [place] % (Auto) 8.9 Eos % (Auto) 2.5 Baso % (Auto) 0.5 Absolute Neuts (auto) 4.5 Absolute Lymphs (auto) 1.18 Total Counted Not Reportable Sodium 141 Potassium 3.9 Chloride 107 Carbon Dioxide 28.0 Anion Gap 6 BUN 8 Creatinine 0.44 L Estim Creat Clear Calc 227.57 Est GFR (MDRD) Af Amer 299 Est GFR (MDRD) Non-Af 247 BUN/Creatinine Ratio 18.3 Glucose 98 Calcium 9.3 Assessment/Plan All Active Problems Dehydration (Acute) Debility (Acute) Abscess of right thigh (Acute) Sepsis (Acute) UTI (urinary tract infection) with pyuria (Acute) Osteomyelitis (Acute) 27-year-old male with a history of 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 1. General debility due to paraplegia * Admit to MedSurg. * Girlfriend on admission and so is unable to care for himself alone. Father was present but states he cannot take care of him. Unable to get insurance approval for SNF * PT/OT consult * case management consult for placement * 2. Paraplegia due to transverse myelitis * Has been paraplegic since 2016. * On Percocet, gabapentin and baclofen. * 3. Vitamin D deficiency: Vitamin D supplement 2000 units daily. DVT prophylaxis: Heparin GI prophylaxis: ranitidine Code status: full code * Disposition: for placement in SNF. Family has been trying to get him into [facility] SNF but have been unsuccessful. PT/[facility] case management on board Code Visit OBSV E&M: [id number] Initial observation care L2
--- NOTE | 2018-01-02 20:45 | ED.VISSUMM ---
- ER Visit Summary Date of Service: 01/02/18 Chief Complaint: [Need for admission for placement to ECF] History of Present Illness: The patient is a 27 M [presents the emergency department asking to be admitted as he can no longer care for himself. Patient states that his girlfriend normally takes care of him and she was recently admitted to the hospital and he has no one to care for him. Patient is nonambulatory and requires full-time care due to history of transverse myelitis. Patient denies any recent illness. Patient's father is with him and states that they have been trying to work with [place] to get [place] [facility] [place] but they were unsuccessful and that he needs admitted until he is able to be approved to go to a [place] [facility] [place] until his girlfriend returns from her hospitalization.] Physical Examination: [HEENT-PERRLA, EOMI. Cranial nerves II through XII grossly intact. TMs clear. Mucous membranes moist. No adenopathy. Cardiovascular-regular rate and rhythm without murmur or ectopy Lungs-clear to auscultation, chest wall stable without crepitus or subcu emphysema Abdomen-normoactive bowel sounds, soft, nontender, no rebound or rigidity, no peritoneal signs. Patient has a colostomy bag. Extremities-intact ?4, normal range of motion, normal pulses, atraumatic]. Flaccid lower extremity's. Test Results: [CBC with differential is normal. Chemistries were normal.] Emergency Department Course and Treatment: [Case was discussed with hospitalist will evaluate patient for admission] Treatment Plan: [Admit] Disposition: [Admit] Impression: [Need for ECF placement Unable to care for self] This note was generated with [employer] dictation software. It may contain incorrect words, spelling, and punctuation that were not noted in review of the chart prior to signing ED Disposition - Plan for ED Patient: Chief Complaint: Other, Pain/Inj Referrals: Quinten Doan DO [Primary Care Provider] -
--- NOTE | 2018-01-02 20:48 | ED.DCSUM_ITS ---
- ER Visit Summary Date of Service: 01/02/18 Chief Complaint: [Need for admission for placement to ECF] History of Present Illness: The patient is a 27 M [presents the emergency department asking to be admitted as he can no longer care for himself. Patient states that his girlfriend normally takes care of him and she was recently admitted to the hospital and he has no one to care for him. Patient is nonambulatory and requires full-time care due to history of transverse myelitis. Patient denies any recent illness. Patient's father is with him and states that they have been trying to work with insurance to get him approved for alf today but they were unsuccessful and that he needs admitted until he is able to be approved to go to a alf until his girlfriend returns from her hospitalization.] Physical Examination: [HEENT-PERRLA, EOMI. Cranial nerves II through XII grossly intact. TMs clear. Mucous membranes moist. No adenopathy. Cardiovascular-regular rate and rhythm without murmur or ectopy Lungs-clear to auscultation, chest wall stable without crepitus or subcu emphysema Abdomen-normoactive bowel sounds, soft, nontender, no rebound or rigidity, no peritoneal signs. Patient has a colostomy bag. Extremities-intact ?4, normal range of motion, normal pulses, atraumatic]. Flaccid lower extremity's. Test Results: [CBC with differential is normal. Chemistries were normal.] Emergency Department Course and Treatment: [Case was discussed with hospitalist will evaluate patient for admission] Treatment Plan: [Admit] Disposition: [Admit] Impression: [Need for ECF placement Unable to care for self] This note was generated with [employer] dictation software. It may contain incorrect words, spelling, and punctuation that were not noted in review of the chart prior to signing ED Disposition - Plan for ED Patient: Chief Complaint: Other, Pain/Inj Referrals: Quinten Doan DO [Primary Care Provider] -
[2018-01-02 21:26] VITALS: BMI 20.5
[2018-01-02 23:05] VITALS: BP 100/60; PULSE 90; RESP 18; TEMP 36.3; O2SAT 98
[2018-01-02] MEDS: Acetaminophen 325 MG Tablet PO (23:19)
[2018-01-02] MEDS: oxyCODONE 5 MG Tablet PO (23:20)
[2018-01-03] MEDS: Baclofen 10 MG Tablet PO (03:39)
[2018-01-03] MEDS: 0.9% Normal Saline 1,000 ML 150 ML IV ×3 (05:31→17:47)
[2018-01-03 05:33] VITALS: BP 112/73; PULSE 71; RESP 18; TEMP 36.6; O2SAT 98
[2018-01-03 09:00] VITALS: BP 118/60; PULSE 70; RESP 18; TEMP 36.8; O2SAT 98
--- NOTE | 2018-01-03 09:11 | PCM.PN.HOSP ---
Patient Problems: Active and Suspected Problems Dehydration (Acute) Debility (Acute) Subjective: Patient was seen and examined. Planes of nausea. Denied any fever or chills. Has adequate output from his colostomy. Admitted last night for possible placement Vitals/I&O's: Vital Signs Temp Pulse Resp BP Pulse Ox 97.8 F 71 18 112/73 98 01/03/18 05:33 01/03/18 05:33 01/03/18 05:33 01/03/18 05:33 01/03/18 05:33 Oxygen Delivery Method Room Air Weight: 58 kg Body Mass Index (BMI) 20.5 Intake and Output for Last 24 Hours 01/01/18 01/02/18 01/03/18 23:59 23:59 23:59 Intake Total 85 / 85 1507 / 1507 Balance 85 / 85 1507 / 1507 General: Alert, Oriented x3, Cooperative, No apparent distress HEENT: Atraumatic, PERRLA, EOMI, Normocephalic Oral: Moist Mucosa Neck: Supple, No JVD, Negative Carotid Bruits Lungs: Clear to auscultation, Normal air movement Cardiovascular: Regular rate, Regular Rhythm, Normal S1, Normal S2, No murmurs Abdomen: Bowel Sounds Present, Soft, Non Tender, Non-Distended, - - Left upper quadrant colostomy, brown stools in colostomy bag, stoma is pink, no surrounding erythema or cellulitis Extremities: No edema, Capillary Refill Less than 3 Seconds Skin: No rashes, No breakdown Musculoskeletal: No Tenderness to Palpation of Joints or Extremities Neurological: Cranial nerves II-XII grossly intact, - - Patient is paraplegic with power 1/5 in both lower extremities Psych/Mental Status: Normal Affect, Appropriate Laboratory Results 01/02/18 19:40: WBC 6.5, RBC 5.06, Hgb 15.5, Hct 46.8, MCV 92.5, MCH 30.6, MCHC 33.1, RDW 14.9 H, RDW Differential 49.7 H, Plt Count 151, MPV 11.0, Immature Gran % (Auto) 0.500, Neut % (Auto) 69.5, Lymph % (Auto) 18.1 L, [place] % (Auto) 8.9, Eos % (Auto) 2.5, Baso % (Auto) 0.5, Absolute Neuts (auto) 4.5, Absolute Lymphs (auto) 1.18, Total Counted Not Reportable 01/02/18 19:40: Sodium 141, Potassium 3.9, Chloride 107, Carbon Dioxide 28.0, Anion Gap 6, BUN 8, Creatinine 0.44 L, Estim Creat Clear Calc 227.57, Est GFR (MDRD) Af Amer 299, Est GFR (MDRD) Non-Af 247, BUN/Creatinine Ratio 18.3, Glucose 98, Calcium 9.3 Current Medications Baclofen (Lioresal) 10 mg PO TID [facility] Last Admin: 01/03/18 03:39 Dose: 10 mg Enoxaparin Sodium (Lovenox) 40 mg SC DAILY@1000 YOUSUF Sodium Chloride () 1,000 mls @ 150 mls/hr IV .Q6H40M [facility] Last Admin: 01/03/18 05:31 Dose: 150 mls/hr Influenza Virus Vaccine Quadrival (Fluarix/Fluzone) 0.5 ml IM .ONCE ONE Stop: 01/03/18 10:01 Magnesium Hydroxide (Milk Of Magnesia) 30 ml PO DAILY PRN PRN PRN Reason: Constipation Nutritional Formula (Lactose Free) (Ensure Enlive) 120 ml PO 4X/DAY [facility] Sodium Chloride () 5 - 30 ml IV UD PRN PRN Reason: SALINE FLUSH Medical Necessity - Tobacco Use Smoking Status: Current every day smoker Tobacco Use: Cigarettes Assessment/Plan All Active Problems Dehydration (Acute) Debility (Acute) Abscess of right thigh (Acute) Sepsis (Acute) UTI (urinary tract infection) with pyuria (Acute) Osteomyelitis (Acute) 27-year-old male with past medical history of 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 1. Debility related to concurrent comorbidities, case management and PT as well as OT consulted, will continue to follow for discharge planning 2. Paraplegia secondary to transverse myelitis, with neurogenic bladder status post in the limb [place], on gabapentin and baclofen, unclear reasoning for Percocet, will not resume. 3. Vitamin D deficiency, on daily supplement 4. Decubitus ulcers -left heel and left ischia -left heel is unstageable, left ischial is stage I, present on admission, wound nurse consulted, following 5. Anxiety disorder, history of substance abuse, reported history of malingering, not taking medication, reportedly giving out medications, on multiple medications, will continue on as needed meds 6. DVT prophylaxis with Lovenox subcu Code Visit Inpatient E&M: 47372 Subs Hosp L2
[2018-01-03] MEDS: proMETHazine 25 MG Tablet PO (10:30)
--- NOTE | 2018-01-03 10:33 | NURSING ---
was asked to see patient for wounds to the left heel, left ischium, and colostomy. patient is known to this nurse. patient is a paraplegic d/t transverse myelitis. patient states that he was running out of ostomy supplies. pt's current ostomy appliance is coming loose. removed the appliance. peristomal skin is intact. stoma is well budded, pink, and moist. measures approx 1. cleansed peristomal skin with warm water and pat dry. applied a new 2 piece flat [employer] appliance. pt tolerated well. see wound intervention for wound care.
--- NOTE | 2018-01-03 10:55 | NURSING ---
wound photo: left heel
--- NOTE | 2018-01-03 10:56 | NURSING ---
wound photo: left ischium
[2018-01-03] MEDS: Fluticasone 0.05% 1 SPRAY NASAL.SRY 2 SPRAY NASAL (11:26)
[2018-01-03] MEDS: Baclofen 10 MG Tablet 20 MG PO ×4 (11:27→21:30)
[2018-01-03] MEDS: Enoxaparin 40 MG/0.4 ML Syringe SC (11:27)
[2018-01-03] MEDS: Famotidine 20 MG Tablet PO ×2 (11:28→21:30)
[2018-01-03] MEDS: Gabapentin 800 MG Tablet PO ×4 (11:38→21:30)
--- NOTE | 2018-01-03 11:44 | CASEMGMT ---
Addendum entered by Angie Garcia 01/03/18 12:25: SW spoke w/pt's girlfriend Helena in regard to pt. She inquired if we are working on placement for pt. She does not feel she can care for pt any longer at home, she states she is struggling to care for herself. SW explained that SW is working on retirement placement for pt. She has told pt in the past she cannot care for him, but he does not believe her. Girlfriend explains she will speak w/pt when she is out of the hospital that she does not feel she can care for him any longer, feels this needs to come from her however. SW offered support to girlfriend. She states is not going to abandon pt, but just cannot care for him at this time. SW will continue to follow for SNF placement, awaiting call back from [facility]. MIKIE Cole, SENIOR SOFTWARE ANALYST Original Note: Addendum entered by Angie Garcia 01/03/18 12:04: SUMAYA faxed PT/OT evaluations to [facility]. MIKIE Cole, SENIOR SOFTWARE ANALYST Original Note: [facility] called [facility], referral faxed. SW spoke w/pt to confirm the plan is for [facility], pt states he does not want to go there. Pt states was there for two years, and has been home for about 5 months. Pt states he needs placed for about one week while his girlfriend is in the hospital, and will then go home. His girlfriend normally cares for him but cannot at present. SW inquired where he would like to go. Pt did not know, but no place in [place]. Pt agreeable to referrals to [facility] and [facility]. Also, pt's girlfriend had asked to speak w/the SW, SW asked if if okay to speak w/her, he states yes. SW called [facility], message left and referral faxed. SW will follow up w/girlfriend shortly. MIKIE Cole, SENIOR SOFTWARE ANALYST
--- NOTE | 2018-01-03 13:08 | CHAPLAIN ---
Type of Pastoral Visit _x__ Initial Visit ___ Follow-up Visit ___ On-call Visit ___ General Patient Visit ___ Spiritual Assessment ___ Family Conference ___ Bereavement ___ Rapid Response ___ Code Blue ___ Other (describe below) Pastoral Care Referral From _x__ Patient ___ Family ___ Nurse ___ Physician ___ Amusement Park Ride Mechanic ___ Principal Software Engineer ___ Other (describe below) Sacrament/Intervention _x__ Active listening ___ Anointing ___ Zoroastrianism ___ Bereavement ___ Communion ___ Bettie exploration ___ ___ Life review _x__ Prayer ___ Reconciliation ___ Sacrament of Sick _x__ Supportive presence ___ Wedding ___ Other (describe below) Pastoral Comments patient has been seen by this inspector rag sorting in past admissions; entered room to inquire if patient would like presence and support; pt describes his circumstance and reason for being admitted; pt is waiting for decision about going to [facility] temporarily; pt states and appears to be comfortable about his circumstance and taking things as they are; pt only concern is that hospital bed is uncomfortable; pt accepts prayer and visit
--- NOTE | 2018-01-03 13:25 | CASEMGMT ---
Addendum entered by Angie Garcia 01/03/18 16:38: SW faxed wound care information to [facility]. MIKIE Cole, FISHING ROD MARKER Original Note: Addendum entered by Angie Garcia 01/03/18 15:43: SW let Nhi at [facility] know that pt did choose a different facility. MIKIE Cole, FISHING ROD MARKER Original Note: Addendum entered by Angie Garcia 01/03/18 15:32: Nhi from [facility] also explained to this SW that when pt left, he left AMA with his girlfriend who was an SWITCHING CLERK there and was fired. He left with her when she was fired. SW spoke w/Latonya from [facility], did let her know about the issues from when pt was at [facility]. SW also let her know that pt's girlfriend at this time is saying she cannot take pt back home, though she has not disclosed this yet to the pt. Latonya states they can take pt. She did ask if pt may prefer to go to [facility] as it is a smaller facility and a younger population. SW explained will ask pt. They could also transfer pt to the other facility once he is at [facility]. SW spoke w/pt, let him know that [facility] can take him, let him know also that they suggested [facility] as it is a smaller facility with a younger population. Pt at this time states will go to [facility] since it won't be for very long. SW suggested to pt if he ends up being there longer, and would like to consider the other smaller facility, they would work w/him to transfer. Pt states understanding. SW let pt know that he will likely be able to go tomorrow. SUMAYA completed the PAS/RR in [facility], faxed this with all needed information faxed to [facility] for a level of care. SW placed transport forms along w/PAS/RR and results, and discharge instructions on chart. SW called [facility] to let them know the information for level of care was faxed, message left for Vinita Soria as the general number for PAS/RR just rings with no voicemail. SUMAYA will continue to follow for anticipated discharge to [facility] on Sunday. MIKIE Cole, FISHING ROD MARKER Original Note: SW spoke w/Nhi from [facility], she explains if pt were to come back there they will have stipulations including that pt would not be able to go on any leave of absences for 6 months, no prior [facility] employee can visit him, and he would be in a shared room. SW explained that pt may want to go to a different facility but will let them know for certain. SW will continue to follow. MIKIE Cole, FISHING ROD MARKER
--- NOTE | 2018-01-03 15:07 | PCM.TXEXTCAR ---
- Diet 01/02/18 22:25 Diet: Regular Diet Food consistency:: Regular Liquid Consistency:: Regular/Thin Type of Dietary Supplement:: Ensure Complete bid - Routine Orders/Code Status Routine Lab Work: CBC - within 1 week, BMP - within 1 week - Wound(s) left heel Wound Type: Pressure Injury Dressing Change: Mepilex left buttock Wound Type: Pressure Injury left ischium Wound Type: Pressure Injury Dressing Change: Mepilex - Allergies/Procedures Done in Hospital Allergies/Adverse Reactions: Allergies adhesive tape Allergy (Verified 12/15/17 03:41) Rash aspirin Allergy (Verified 12/15/17 03:41) Unknown NSAIDS (Non-Steroidal Anti-Inflamma Allergy (Verified 12/15/17 03:41) Hives GREEN DYE Allergy (Uncoded 12/15/17 03:41) Unknown Procedures: None - Type of Care/Length of Stay Estimated LOS: More Than 30 Days Type of Care Needed: Intermediate Rehab Potential: Fair Prognosis: Fair - Additional Orders/Day of Discharge Day of Discharge: 01/03/18 - Follow Up Care Primary Care Physician: Quinten Doan DO [Primary Care Provider] -
--- NOTE | 2018-01-03 15:44 | CASEMGMT ---
LW/POA forms in e-chart, they are printed and now in paper chart as well. MIKIE Cole, POLICY SERVICE COORDINATOR
[2018-01-03 16:41] VITALS: BP 107/67; PULSE 79; RESP 18; TEMP 36.6; O2SAT 98
[2018-01-03 20:02] VITALS: BP 98/52; PULSE 96; RESP 14; TEMP 37; O2SAT 99
[2018-01-03] MEDS: clonazePAM 1 MG Tablet PO (21:30)
[2018-01-03] MEDS: Acetaminophen 325 MG Tablet 650 MG PO (21:31)
[2018-01-04] MEDS: 0.9% Normal Saline 1,000 ML 150 ML IV (01:05)
[2018-01-04 02:00] VITALS: BP 116/67; PULSE 90; RESP 16; TEMP 37.3; O2SAT 98
[2018-01-04 08:45] VITALS: BP 110/69; PULSE 82; RESP 16; TEMP 36.6; O2SAT 99
--- NOTE | 2018-01-04 10:06 | CASEMGMT ---
Addendum entered by Regina Mojica 01/04/18 11:02: Return call from Vinita Soria at [facility] and LOC submission not received as they are having issues with fax machine. LOC request refaxed to the new number provided by Vinita. Will await results. PALAK Quiroz Original Note: Social Work VM left with [facility] to check on status of LOC. SW will await return call and LOC results. PALAK Quiroz
[2018-01-04] MEDS: Baclofen 10 MG Tablet 20 MG PO ×2 (10:19→14:19)
[2018-01-04] MEDS: Gabapentin 800 MG Tablet PO ×2 (10:20→14:20)
[2018-01-04] MEDS: Famotidine 20 MG Tablet PO (10:20)
[2018-01-04] MEDS: Fluticasone 0.05% 1 SPRAY NASAL.SRY 2 SPRAY NASAL (10:21)
[2018-01-04] MEDS: Enoxaparin 40 MG/0.4 ML Syringe SC (10:21)
--- NOTE | 2018-01-04 12:30 | PN_ITS ---
Patient Problems: Active and Suspected Problems Dehydration (Acute) Debility (Acute) Subjective: Patient was seen and examined. Denies any new complaints. No acute events overnight Objective: General: Alert, Oriented x3, Cooperative, No apparent distress HEENT: Atraumatic, PERRLA, EOMI, Normocephalic Oral: Moist Mucosa Neck: Supple, No JVD, Negative Carotid Bruits Lungs: Clear to auscultation, Normal air movement Cardiovascular: Regular rate, Regular Rhythm, Normal S1, Normal S2, No murmurs Abdomen: Bowel Sounds Present, Soft, Non Tender, Non-Distended, - - Left upper quadrant colostomy, brown stools in colostomy bag, stoma is pink, no surrounding erythema or cellulitis Extremities: No edema, Capillary Refill Less than 3 Seconds Skin: No rashes, No breakdown Musculoskeletal: No Tenderness to Palpation of Joints or Extremities Neurological: Cranial nerves II-XII grossly intact, - - Patient is paraplegic with power 1/5 in both lower extremities Psych/Mental Status: Normal Affect, Appropriate Vitals/I&O's: Vital Signs Temp Pulse Resp BP Pulse Ox 97.8 F 82 16 110/69 99 01/04/18 08:45 01/04/18 08:45 01/04/18 08:45 01/04/18 08:45 01/04/18 08:45 Oxygen Delivery Method Room Air Weight: 58 kg Body Mass Index (BMI) 20.5 Intake and Output for Last 24 Hours 01/02/18 01/03/18 01/04/18 23:59 23:59 23:59 Intake Total 85 / 85 4637 / 4637 3313 / 3313 Balance 85 / 85 4637 / 4637 3313 / 3313 Current Medications Acetaminophen (Tylenol) 650 mg PO Q6H PRN PRN Reason: PAIN Last Admin: 01/03/18 21:31 Dose: 650 mg Baclofen (Lioresal) 20 mg PO 4X/DAY [facility] Last Admin: 01/04/18 10:19 Dose: 20 mg Cholecalciferol (Vitamin D) 2,000 unit PO DAILY [facility] Last Admin: 01/04/18 10:21 Dose: 2,000 unit Clonazepam (Klonopin) 1 mg PO QHS PRN PRN Reason: ANXIETY Last Admin: 01/03/18 21:30 Dose: 1 mg Enoxaparin Sodium (Lovenox) 40 mg SC DAILY@1000 [facility] Last Admin: 01/04/18 10:21 Dose: 40 mg Famotidine (Pepcid) 20 mg PO BID [facility] Last Admin: 01/04/18 10:20 Dose: 20 mg Fluticasone Propionate (Flonase Nasal [place]) 2 spray NASAL DAILY [facility] Last Admin: 01/04/18 10:21 Dose: 2 spray Gabapentin (Neurontin) 800 mg PO 4X/DAY [facility] Last Admin: 01/04/18 10:20 Dose: 800 mg Magnesium Hydroxide (Milk Of Magnesia) 30 ml PO DAILY PRN PRN PRN Reason: Constipation Nutritional Formula (Lactose Free) (Ensure Enlive) 120 ml PO 4X/DAY [facility] Last Admin: 01/04/18 10:26 Dose: 120 ml Ondansetron HCl (Zofran) 4 mg IV Q6H PRN PRN PRN Reason: NAUSEA/VOMITING Promethazine HCl (Phenergan Tablet) 25 mg PO Q6H PRN PRN PRN Reason: NAUSEA Last Admin: 01/03/18 10:30 Dose: 25 mg Sodium Chloride () 5 - 30 ml IV UD PRN PRN Reason: SALINE FLUSH Medical Necessity - Tobacco Use Smoking Status: Current every day smoker Tobacco Use: Cigarettes Assessment/Plan All Active Problems Dehydration (Acute) Debility (Acute) Abscess of right thigh (Acute) Sepsis (Acute) UTI (urinary tract infection) with pyuria (Acute) Osteomyelitis (Acute) 27-year-old male with past medical history of 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 1. Debility related to concurrent comorbidities, case management consulted on discharge planning, waiting on level of care and possible discharge to [facility] 2. Paraplegia secondary to transverse myelitis, with neurogenic bladder status post in the limb [place], on gabapentin and baclofen, off Percocet for reported no use/non-indication. 3. Vitamin D deficiency, on daily supplement 4. Decubitus ulcers -left heel and left ischia -left heel is unstageable, left ischial is stage I, present on admission, wound nurse following 5. Anxiety disorder, history of substance abuse, reported history of malingering, not taking medication, reportedly giving out medications, on multiple medications, will continue on as needed meds 6. DVT prophylaxis with Lovenox subcu Code Visit Inpatient E&M: 97598 Subs Hosp L2
[2018-01-04 12:48] VITALS: BP 91/53; PULSE 97; RESP 16; TEMP 36.8; O2SAT 98
--- NOTE | 2018-01-04 14:25 | NURSING ---
pt requesting to have dr order his Percocet. he has been on them for years and Tylenol does not help for his pain. of dr does not order them he will just take his own at discharge.
--- NOTE | 2018-01-04 14:28 | PCM.DC.SUM ---
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, stage 4 (Chronic) L89.314 Paraplegia, incomplete (Chronic) G82.22 Nicotine dependence (Chronic) F17.200 Decubitus skin ulcer (Chronic) Bilateral buttocks Transverse myelitis (Chronic) G37.3 Functional quadriplegia (Chronic) Neurogenic bladder with indwelling [place] (Chronic) Hospital Course and Treatment Consultations 01/03/18 00:39 Consult: Onc/Wound/retail representative Routine Comment: Reason for Consult:: colostomy, pressure area left heel Comments:: previous old healed pressure injury buttocks/sacrum Operations: None Procedures: None Summary of Care Provided: The patient is a 27 year old M with past medical history of 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 Patient was reportedly being cared for by his girlfriend who is his healthcare power of trust and estates attorney since October 2017. His girlfriend is reported really unable to take care of him and the family has been trying to get him into facility. They had been unsuccessful in getting patient admitted. He was admitted placement. There was also collaborative information that the patient does not use his Percocet that he has been prescribed with. He is reportedly giving it out. He was not prescribed any Percocets or Klonopin during this admission. He was not discharged to the correction facility without the above. Patient Problems: Active and Suspected Problems Dehydration (Acute) Debility (Acute) Subjective: On the day of discharge, patient was seen and examined. No new complaints. Review of systems was negative. Objective: General: Alert, Oriented x3, Cooperative, No apparent distress HEENT: Atraumatic, PERRLA, EOMI, Normocephalic Oral: Moist Mucosa Neck: Supple, No JVD, Negative Carotid Bruits Lungs: Clear to auscultation, Normal air movement Cardiovascular: Regular rate, Regular Rhythm, Normal S1, Normal S2, No murmurs Abdomen: Bowel Sounds Present, Soft, Non Tender, Non-Distended, - - Left upper quadrant colostomy, brown stools in colostomy bag, stoma is pink, no surrounding erythema or cellulitis Extremities: No edema, Capillary Refill Less than 3 Seconds Skin: No rashes, No breakdown Musculoskeletal: No Tenderness to Palpation of Joints or Extremities Neurological: Cranial nerves II-XII grossly intact, - - Patient is paraplegic with power 1/5 in both lower extremities Psych/Mental Status: Normal Affect, Appropriate - Physical Exam Vital Signs Temp Pulse Resp BP Pulse Ox 98.3 F 97 16 91/53 L 98 01/04/18 12:48 01/04/18 12:48 01/04/18 12:48 01/04/18 12:48 01/04/18 12:48 Oxygen Delivery Method Room Air Weight: 58 kg Body Mass Index (BMI) 20.5 Intake and Output for Last 24 Hours 01/02/18 01/03/18 01/04/18 23:59 23:59 23:59 Intake Total 85 / 85 4637 / 4637 3913 / 3913 Balance 85 / 85 4637 / 4637 3913 / 3913 Discharge Diet: No Restrictions Discharge Activity: Return to Normal Activity Home Medications: Medications to take at Discharge Acetaminophen [Tylenol Tablet] 650 mg PO Q6H PRN 02/09/16 Cholecalciferol (VIT D3) [Vitamin D3] 2,000 unit PO DAILY 02/09/16 Famotidine [Pepcid] 20 mg PO BID 03/29/16 Gabapentin [Neurontin] 800 mg PO 4X/DAY 04/25/16 Baclofen 20 mg PO 4X/DAY 10/11/16 Fluticasone 0.05% [Flonase Nasal [place]] 2 spray NASAL DAILY 10/11/16 Loratadine 10 mg PO DAILY 09/28/17 Ondansetron [Zofran Odt] 4 mg PO Q8H PRN PRN 12/15/17 proMETHazine tablet [Phenergan tablet] 25 mg PO Q6H PRN PRN #10 tab 12/15/17 Ensure Enlive 120 ml PO 4X/DAY liquid 01/03/18 Primary Care Physician: Quinten Doan DO [Primary Care Provider] - Disposition: [facility] facility Minutes spent on discharge:: 30 Patient Condition:: Stable Medical Necessity - Tobacco Use Smoking Status: Current every day smoker Tobacco Use: Cigarettes Meaningful Use Info Meaningful Use Diagnoses (Choose all that apply): None applicable Code Visit Inpatient E&M: 27693 Disch Hosp
--- NOTE | 2018-01-04 14:30 | CASEMGMT ---
Social Work Level of Care obtained. Pt ready for d/c this date. Met with pt in room and he is agreeable to d/c and would like father to transport to [facility]. Pt called father and informed of d/c and he is agreeable to transport. Call to [facility] and informed of d/c today. Orders and LOC faxed. Physician and nursing aware. PALAK Quiroz
[2018-01-04] MEDS: Acetaminophen 325 MG Tablet 650 MG PO (14:33)
== END 2018-01-04 15:00 | disposition skilled nursing facility (03) ==
LOC: ED 20:07 → MS2 20:48
PROVIDERS: Admitting Provider Student in an Organized Health Care Education/Training Program; Emergency Provider Emergency Medicine; Family Provider Family Medicine; PCP Family Medicine; Referring Provider Student in an Organized Health Care Education/Training Program; Visit Provider Internal Medicine
DX: E86.0 Dehydration (principal); G37.3 Acute transverse myelitis in demyelinating disease of central nervous system; Z93.3 Colostomy status; R53.2 Functional quadriplegia; N31.9 Neuromuscular dysfunction of bladder, unspecified; E44.0 Moderate protein-calorie malnutrition; Z68.20 Body mass index [BMI] 20.0-20.9, adult; Z79.899 Other long term (current) drug therapy; Z23 Encounter for immunization; F17.210 Nicotine dependence, cigarettes, uncomplicated; E55.9 Vitamin D deficiency, unspecified; F41.9 Anxiety disorder, unspecified; L89.620 Pressure ulcer of left heel, unstageable; L89.221 Pressure ulcer of left hip, stage 1
CPT/HCPCS: 80048; 85025; 96360; 96361; 96372; 97110; 97163; 97165; 97530; 97802; 99218; 99281; 99406; J7030; 90686; A4216; G0378

== ENCOUNTER 2018-08-12 10:31 | Day surgery (SDC) | payer MEDICAID, SELFPAY ==
[2018-08-12] VITALS (9 sets, daily range): BP systolic 66–123; BP diastolic 40–90; PULSE 60–85; RESP 16–18; TEMP 36.3–36.9; O2SAT 98–100; BMI 18.1
--- NOTE | 2018-08-12 12:00 | RAD_ITS ---
PROCEDURE: Caudal block. DATE OF EXAMINATION: August 12, 2018. INDICATION: Male, 27 years old. Chronic low back pain. FLUOROSCOPY TIME (if supplied): (0:05) minutes/seconds. 2 images were obtained. Intraoperative imaging provided for caudal block. RAD/Fluor Guidance for Spine Inj IMPRESSION: Intraoperative imaging provided for caudal block. Electronically Signed: Deniz Cabrera, at 12:41 EDT , Service support ,
[2018-08-12] MEDS: MethylPREDNISolone Acetate 80 MG/ML Vial (12:30)
[2018-08-12] MEDS: Bupivacaine 0.25% 30 ML Vial (12:30)
--- NOTE | 2018-08-12 12:35 | PCM.OPRPT ---
Problem List (1) Radiculopathy of lumbosacral region Status: Chronic Report of Operation Date of Procedure: 08/12/18 Pre-Operative Diagnosis: Lumbosacral radiculopathy Post-Operative Diagnosis: Lumbosacral radiculopathy Surgery/Procedure Performed:: Diagnostic/therapeutic caudal epidural steroid injection Description of Surgical Findings:: PROCEDURE: Diagnostic/therapeutic caudal epidural steroid injection PREOPERATIVE DIAGNOSIS: Lumbosacral radiculopathy POSTOPERATIVE DIAGNOSIS: Lumbosacral radiculopathy ANESTHESIA: MAC COMPLICATIONS: None BLOOD LOSS: Minimal PROCEDURE IN DETAIL: History and physical today was reviewed. Risks and benefits of the procedure were explained. The patient understood, agreed to our procedure, and informed consent was obtained. IV inserted per routine protocol. The patient was taken to the operating room, placed in a prone position with a pillow positioned underneath the abdomen. The lower back area was prepped and draped in a sterile fashion using iodine x3 under fluoroscopy guidance on the lateral view the caudal space was identified the skin and subcutaneous tissue and size approximately 3 cc of 1% lidocaine using a 25-gauge regular needle under direct visualization fluoroscopy using a 22-gauge 3-1/2 inch spinal needle the needle was advanced via the skin through the sacral hiatus tip of the needle passed through the sacrococcygeal ligament advanced approximately S4 area after negative aspiration for blood or CSF a total of 3 cc of contrast were injected to confirm correct placement of the needle as well as cephalad spread the spread was followed to approximately L5 area after negative aspiration for blood or CSF and confirmation AP as well as lateral view a total of 15 cc of preservative-free 0.125% Marcaine with 80 mg of Depo-Medrol were injected easily. The needles were then removed intact. The patient experienced no signs or symptoms intrathecal, intravascular injection. The patient experienced no paraesthesia. The procedure was completed without any apparent difficult, any complication. The patient appeared to tolerate well. ASSESSMENT AND PLAN: This is a 27-year-old male with lumbosacral radiculopathy status post diagnostic/therapeutic caudal epidural steroid injection. The patient will continue his current medications. The patient will follow in approximately 2 weeks for possible repeat of the procedure if indicated.
== END 2018-08-12 13:55 | disposition home or self-care (01) ==
LOC: SDC 10:33 → AC 11:49
PROVIDERS: Family Provider Family Medicine; PCP Family Medicine; Referring Provider Anesthesiology Pain Medicine; Visit Provider Anesthesiology Pain Medicine
PROC: 3E0S3BZ Introduction of Anesthetic Agent into Epidural Space, Percutaneous Approach (ICD-10-PCS; CPT 62282; principal; 2018-08-12 11:55)
DX: M54.17 Radiculopathy, lumbosacral region (principal); G37.3 Acute transverse myelitis in demyelinating disease of central nervous system; G89.0 Central pain syndrome; G82.20 Paraplegia, unspecified; G89.4 Chronic pain syndrome; F17.210 Nicotine dependence, cigarettes, uncomplicated; F41.9 Anxiety disorder, unspecified; F32.9 Major depressive disorder, single episode, unspecified; E55.9 Vitamin D deficiency, unspecified; Z87.440 Personal history of urinary (tract) infections; Z79.891 Long term (current) use of opiate analgesic
CPT/HCPCS: 01992; 62323; 64520; 64483; 77003; J7120; J3490

== ENCOUNTER 2018-09-11 15:00 | Inpatient (IN) | payer MEDICAID, SELFPAY ==
[2018-08-12 11:46] VITALS: BMI 18.1
[2018-09-11 15:01] VITALS: BP 122/77; PULSE 88; RESP 15; TEMP 36.7; O2SAT 98; BMI 20.3
[2018-09-11 15:06] VITALS: BP 122/77; PULSE 89; RESP 16; O2SAT 98
[2018-09-11] MEDS: 0.9% Normal Saline 1,000 ML 1000 ML IV (15:23)
--- NOTE | 2018-09-11 15:24 | CT_ITS ---
STUDY: CT ABDOMEN AND PELVIS WITH CONTRAST REASON FOR EXAM: Male, 27 years old. Nausea and vomiting x2 days RADIATION DOSAGE (If Supplied By Facility): CTDIvol = ( 6.07 ) mGy, DLP = ( 318.40 ) mGycm TECHNIQUE: Transaxial images were obtained from the dome of the diaphragm to the symphysis pubis with oral contrast. 15mL Oral Gastrografin was administered. Sagittal and coronal images were reconstructed. Individualized dose optimization techniques were used for this CT. COMPARISON: Previous plain films FINDINGS: The visualized lung bases are unremarkable. The visualized portions of the heart are within normal limits. Normal liver. Normal gallbladder and extrahepatic biliary system. Normal spleen. Normal pancreas. Normal bilateral adrenal glands. Normal right kidney. Normal left kidney. Normal visualized stomach. Normal small intestine. Retained stool noted throughout the colon. The appendix is visualized and appears normal. Appendix best seen on coronal recon image 45. Patient has an ostomy in the left lower quadrant which is free of complication Normal abdominal aorta. Normal inferior vena cava. Normal retroperitoneum. There is nonspecific bladder wall thickening unchanged from 2017 No evidence of hernia. Normal osseous structures. CT/Abdomen/Pel W ORAL Cont Only IMPRESSION: No suspicious solid organ abnormality No CT evidence of an acute inflammatory process, normal appendix visualized Retained stool throughout the colon. There is a left lower quadrant ostomy free of complication Nonspecific but stable bladder wall thickening Electronically Signed: Jeronimo Belle MD at 17:19 EDT , Service support ,
--- NOTE | 2018-09-11 15:26 | ED.VISSUMM ---
- ER Visit Summary Date of Service: 09/11/18 Chief Complaint: Nausea and vomiting [] History of Present Illness: The patient is a 27 M [presents to the emergency department with symptoms for 2 to 3 days. Patient presents via EMS from home. Patient states that until 2 weeks ago he was in a residential. Patient currently living with his mother who helps care for him. Patient has history of transverse myelitis and is nonambulatory. Patient states that he has been without his gabapentin for over 2 weeks. Patient has a scheduled appointment with his primary care physician for tomorrow. Patient has a colostomy and states that he has had decreased output from it. He denies any blood in his colostomy bag or black tarry stool. Patient denies any fevers. Patient states that he has decreased sensation to his abdomen so he cannot always tell if he has abdominal pain. She denies any sick contacts. Denies recent travel or antibiotic usage.] Physical Examination: [HEENT-PERRLA, EOMI. Cranial nerves II through XII grossly intact. TMs clear. Mucous membranes dry. No adenopathy. Cardiovascular-regular rate and rhythm without murmur or ectopy Lungs-clear to auscultation, chest wall stable without crepitus or subcu emphysema. Patient does have a colostomy in the lower mid abdomen. There is no stool within the colostomy bag. I do not palpate any masses in the abdomen or javier-stoma hernias. Abdomen-normoactive bowel sounds, soft, nontender, no rebound or rigidity, no peritoneal signs. Extremities-intact ?4, normal range of motion, normal pulses, atraumatic.] Test Results: [CBC with additional count 9.3, hemoglobin 16, hematocrit 40, platelets 123. Chemistries are unremarkable. BUN was 14 g 0.58. Lipase was 48. Urinalysis was positive for 500 leukocyte esterase and positive for nitrites as well as 150 ketones. Patient had 50-100 WBCs and 50-100 RBCs. Patient had +4 bacteria.] CT scan of the abdomen pelvis was ordered with p.o. contrast which official report is pending however I see only bladder wall thickening and large amount of stool throughout the bowel but no inflammatory changes. Emergency Department Course and Treatment: [Patient was given Zofran and morphine. Patient was started on Rocephin 1 g IV.] Given a liter normal same fluid bolus. Treatment Plan: [Admit] Disposition: Admit [] Impression: [UTI Vomiting Dehydration] This note was generated with [employer] dictation software. It may contain incorrect words, spelling, and punctuation that were not noted in review of the chart prior to signing ED Disposition - Plan for ED Patient: Referrals: Abdulkadir Vera MD [NON-STAFF] -
[2018-09-11 15:40] LABS: Mucous, Urine 0 SEEN /hpf (<or=2+); Squamous Epithelial Cells - UA 0 SEEN /hpf (0-5)
[2018-09-11] MEDS: Ondansetron 4 MG/2 ML Vial IV ×2 (15:43→23:43)
[2018-09-11 15:50] LABS: Absolute Neutrophil Count 7.4 X10^3/uL (2.0-7.7); Basophil# 0.01 X10^3/uL; Basophil% 0.1 % (0-1); Eosinophil# 0.06 X10^3/uL; Eosinophils% 0.6 % (0-5); Hematocrit 47.8 % (40-54); Hemoglobin 16.3 g/dl (13.0-16.5); Lymphocyte % 11.8 % (19-41); Mean Corp Hgb Conc 34.1 g/gl (32-36); Mean Corpuscular Hgb 32.3 pg (27.0-32.0); Mean Corpuscular Volume 94.7 fL (80-94); Mean Platelet Vol. 10.9 fl (6.2-12.0); Monocyte# 0.72 X10^3/uL; Monocyte% 7.7 % (0-10); Neutrophil # 7.44 X10^3/uL (2.7-7.7); Neutrophil % 79.7 % (47-70); Platelet Count 123 K/mm3 (150-450); RBC Distribution Width CV 13.5 % (11.6-14.6); RBC Distribution Width SD 46.5 fl (35.1-43.9); Red Blood Count 5.05 M/mm3 (4.6-6.2); White Blood Count 9.3 K/mm3 (4.4-11.0)
[2018-09-11 15:52] LABS: POSITIVE COUNT NO; POSITIVE DIFFERENTIAL NO; POSITIVE MORPHOLOGY NO
[2018-09-11 15:53] LABS: ALB/GLOB Ratio 1.4 RATIO (0.9-2.4); AST(SGOT) 15 U/L (15-37); Alanine Aminotransfer ALT/SGPT 15 U/L (16-61); Albumin, Serum 4.4 g/dL (3.2-5.0); Alkaline Phosphatase 72 U/L (45-117); Anion Gap 11 (5-15); BUN 14 mg/dL (7-18); BUN/Creat Ratio 24.3 RATIO (10-20); Calcium,Total 9.2 mg/dL (8.5-10.1); Chloride 106 mmol/L (98-107); Creatinine, Serum 0.58 mg/dL (0.70-1.30); EST Glomerular Filtration Rate 179 mL/min (>60); Est Glom Filt Rate - Afr Amer 217 mL/min (>60); Estimated Creatinine Clearance 179.13 ml/min; Globulin 3.2 g/dL (2.2-4.2); Glucose 82 mg/dL (74-106); Lipase 48 U/L (73-393); Potassium 3.6 mmol/L (3.5-5.1); Protein, Total 7.6 g/dL (6.4-8.2); Sodium Level 139 mmol/L (136-145)
[2018-09-11 15:53] LABS: Color, Urine Yellow (Yellow); Glucose, Dipstick Normal (Normal); Leukocyte Esterase-Dipstick 500 /ul (Negative); Nitrite-Dipstick Positive (Negative); Occult Blood-Urine 150 /ul (Negative); Protein-Dipstick 30 mg/dl (Negative); Urine Bilirubin Dipstick Negative (Negative); Urine Clarity Sl. Cloudy (Clear); Urine Urobilinogen Normal (Normal)
[2018-09-11 16:02] LABS: Ketone-Dipstick 150 mg/dl (Negative)
--- NOTE | 2018-09-11 16:03 | ED.RN ---
LAB CALLED CRITICAL RESULT ON THIS PT OF URINE KETONES OF 150, DR DURÁN NOTIFIED, NFO'S
[2018-09-11 16:12] LABS: Bacteria 4+ /hpf (None Seen); Red Blood Cells-Urine 50-100 SEEN /hpf (0-5); White Blood Cells 50-100 SEEN /hpf (0-5)
[2018-09-11 16:14] LABS: Lactic Acid 0.9 mmol/L (0.4-2.0)
[2018-09-11] MEDS: Ceftriaxone 1 GM/50 ML BAG IV (16:32)
--- NOTE | 2018-09-11 16:50 | ED.RN ---
no new wounds noted on buttox. heal wound located on right posterior thigh. small amount of blood located at site of rectum noted on adult brief. pt states I may have pinched myself when moving from my chair into my bed. no open wound at this time. claudy riley rn [id number]
--- NOTE | 2018-09-11 16:58 | ED.RN ---
FANI HELD FOR SCAN. [id number].
[2018-09-11 17:12] VITALS: BP 113/53; PULSE 80; RESP 15; O2SAT 99
[2018-09-11] MEDS: Morphine 4 MG/ML Syringe IV (17:12)
--- NOTE | 2018-09-11 17:20 | NURSING ---
MED SURG UTI, DEHYDRATION, VOMITTING WHITE
[2018-09-11 17:28] VITALS: BMI 20.4
--- NOTE | 2018-09-11 17:49 | HP.PCM_ITS ---
Problem List (1) Acute cystitis with hematuria Status: Acute (2) Neurogenic bladder Status: Chronic (3) Malnutrition of moderate degree Status: Chronic (4) Nicotine dependence Status: Chronic Qualifiers: Comment: F17.200 (5) Paraplegia, incomplete Status: Chronic Comment: G82.22 (6) Transverse myelitis Status: Chronic Comment: G37.3 History of Present Illness Date of Admission: 09/11/18 Chief Complaint: nausea/vomiting The patient is a 27 year old M with pmhx of paraplegia secondary to transverse myelitis episode in 2016, also with a history of IV drug abuse, neurogenic bladder, presence of colostomy, depression and anxiety, chronic pain, ongoing nicotine abuse, marijuana abuse, muscular contractions, prior urinary tract infections and osteomyelitis, who presents to the emergency room with complaints of nausea and vomiting for the past 2 to 3 days. Patient was recently discharged from [facility] into the care of his stepmother Shereen, who was present here today. Patient states that he started feeling unwell 2 to 3 days ago. He has had ongoing nausea vomiting, and between dry heaves. He cannot keep anything down and feels dehydrated. He notes that he has also felt like he was burning up intermittently. He has no sensation below his lower abdomen, he is chronically incontinent of urine. He has no sensation of dysuria. He has noted some blood in his depends, this is likely secondary to his UTI however it is unclear of source specifically. In the past he has had urine cultures growing Klebsiella, Pseudomonas, and Enterococcus faecalis however this is when he had a catheter in. Also of note the patient has run out of his baclofen, oxycodone, and gabapentin as he did not receive enough at discharge from [facility] to get him to his follow-up appointment with his family medicine doctor. He is having severe muscle contractions and spasms in his upper and lower extremities. He does have some function of his upper extremities however he has contractions in his hands. He also has chronic wounds on his buttocks however he states these are healing well. 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, stage 4 (Chronic) L89.314 Paraplegia, incomplete (Chronic) G82.22 Nicotine dependence (Chronic) F17.200 Decubitus skin ulcer (Chronic) Bilateral buttocks Transverse myelitis (Chronic) G37.3 Functional quadriplegia (Chronic) Neurogenic bladder with indwelling Gan (Chronic) Allergies adhesive tape Allergy (Verified 08/12/18 11:37) Rash aspirin Allergy (Verified 08/12/18 11:37) Unknown NSAIDS (Non-Steroidal Anti-Inflamma Allergy (Verified 08/12/18 11:37) Hives GREEN DYE Allergy (Uncoded 08/12/18 11:37) Unknown Home Medications: Ambulatory Orders Medication Instructions Recorded Acetaminophen [Tylenol Tablet] 650 mg PO Q6H PRN 02/09/16 Cholecalciferol (VIT D3) [Vitamin 2,000 unit PO DAILY 02/09/16 D3] Famotidine [Pepcid] 20 mg PO BID 03/29/16 Gabapentin [Neurontin] 800 mg PO 4X/DAY 04/25/16 Baclofen 20 mg PO 4X/DAY 10/11/16 Fluticasone 0.05% [Flonase Nasal 2 spray NASAL DAILY 10/11/16 [place]] Ondansetron [Zofran Odt] 4 mg PO Q8H PRN PRN 12/15/17 proMETHazine tablet [Phenergan 25 mg PO Q6H PRN PRN #10 tab 12/15/17 tablet] Escitalopram Oxalate [Lexapro] 20 mg PO DAILY 08/12/18 Lidocaine [Lidocare] 1 each TP DAILY 08/12/18 Percocet 10-325 mg Tablet 1 tab PO Q12H PRN PRN 08/12/18 Naproxen 250 mg PO Q12H PRN PRN 09/11/18 Surgical History: - - Tympanostomy tubes. PEG tube. colostomy (permanent). excision right ischial pressure sore, Stage IV, with partial ostectomy for osteomyelitis and excision left ischial pressure sore, Stage IV, with partial ostectomy for osteomyelitis - 02/10/16. Psychiatric History: Depression Lives: With Family Smoking Status: Current every day smoker Tobacco Use: Cigarettes Alcohol: None Drugs: Marijuana - *Family History Paternal History Items: No pertinent history Maternal History Items: No pertinent history Review of Systems Constitutional: Reports: Fever, Malaise. Denies: Chills, Weight Change HEENT: Denies: Head Aches, Sinus Congestion, Sinus Drainage Cardiovascular: Denies: Chest Pain, Palpitations Respiratory: Denies: Cough, Shortness of Breath, Shortness of breath at rest, Sputum production Gastrointestinal: Reports: Nausea, Vomiting. Denies: Abdominal Pain Genitourinary: Reports: Hematuria, Incontinence. Denies: Dysuria Musculoskeletal: Reports: - - muscle spasms. Denies: Joint Pain, Joint Te nderness Skin: Denies: Rash, Wounds Neurological: Denies: Numbness, Tingling, Focal weakness Psychiatric: Reports: Depression. Denies: Anxiety, Homicidal Ideations, Suicidal Ideations Hematologic/ Lymphatic: Denies: Easy Bruising, Easy Bleeding VTE Information - Inpt Only VTE Present on Admission: No VTE Mechan Device Prophylaxis: None VTE Pharm Prophylaxis ordered?: Yes Patient Problems: Active and Suspected Problems Acute cystitis with hematuria (Acute) - Physical Exam General: Alert, Oriented x3, Cooperative, - - frail, malnourished HEENT: Atraumatic, PERRLA, EOMI, Normocephalic Neck: Supple, No JVD, Negative Carotid Bruits Lungs: Clear to auscultation, Normal air movement Cardiovascular: Regular rate, No murmurs Abdomen: Bowel Sounds Present, Soft, Non Tender Extremities: No edema, Capillary Refill Less than 3 Seconds Skin: No rashes, No breakdown Musculoskeletal: No Tenderness to Palpation of Joints or Extremities, - - poor muscle tone, upper and lower extremity spasms, hands partially contracted Neurological: Cranial nerves II-XII grossly intact Psych/Mental Status: Normal Affect, Appropriate, Alert and oriented to time, place, person, mood and affect Vital Signs Temp Pulse Resp BP Pulse Ox 98.1 F 80 15 113/53 L 99 09/11/18 15:01 09/11/18 17:12 09/11/18 17:12 09/11/18 17:12 09/11/18 17:12 Oxygen Delivery Method Room Air Weight: 145 lb 15.136 oz Body Mass Index (BMI) 20.3 Laboratory Tests Past 24 Hrs 09/11/18 09/11/18 09/11/18 15:14 15:14 15:30 WBC 9.3 RBC 5.05 Hgb 16.3 Hct 47.8 MCV 94.7 H MCH 32.3 H MCHC 34.1 RDW 13.5 RDW Differential 46.5 H Plt Count 123 L MPV 10.9 Immature Gran % (Auto) 0.100 Neut % (Auto) 79.7 H Lymph % (Auto) 11.8 L [place] % (Auto) 7.7 Eos % (Auto) 0.6 Baso % (Auto) 0.1 Absolute Neuts (auto) 7.4 Absolute Lymphs (auto) 1.10 Total Counted Not Reportable Sodium 139 Potassium 3.6 Chloride 106 Carbon Dioxide 22.0 Anion Gap 11 BUN 14 Creatinine 0.58 L Estim Creat Clear Calc 179.13 Est GFR (MDRD) Af Amer 217 Est GFR (MDRD) Non-Af 179 BUN/Creatinine Ratio 24.3 H Glucose 82 Lactic Acid Calcium 9.2 Total Bilirubin 0.60 AST 15 ALT 15 L Alkaline Phosphatase 72 Total Protein 7.6 Albumin 4.4 Globulin 3.2 Albumin/Globulin Ratio 1.4 Lipase 48 L Urine Color Yellow Urine Clarity Sl. Cloudy Urine pH 6.0 Ur Specific [place] 1.010 Urine Protein 30 H Urine Glucose (UA) Normal Urine Ketones 150 H Urine Occult Blood 150 H Urine Nitrite Positive H Urine Bilirubin Negative Urine Urobilinogen Normal Ur Leukocyte Esterase 500 H Urine RBC 50-100 SEEN Urine WBC 50-100 SEEN Ur Squamous Epith Cells 0 SEEN Urine Bacteria 4+ Urine Mucus 0 SEEN 09/11/18 15:40 WBC RBC Hgb Hct MCV MCH MCHC RDW RDW Differential Plt Count MPV Immature Gran % (Auto) Neut % (Auto) Lymph % (Auto) [place] % (Auto) Eos % (Auto) Baso % (Auto) Absolute Neuts (auto) Absolute Lymphs (auto) Total Counted Sodium Potassium Chloride Carbon Dioxide Anion Gap BUN Creatinine Estim Creat Clear Calc Est GFR (MDRD) Af Amer Est GFR (MDRD) Non-Af BUN/Creatinine Ratio Glucose Lactic Acid 0.9 Calcium Total Bilirubin AST ALT Alkaline Phosphatase Total Protein Albumin Globulin Albumin/Globulin Ratio Lipase Urine Color Urine Clarity Urine pH Ur Specific [place] Urine Protein Urine Glucose (UA) Urine Ketones Urine Occult Blood Urine Nitrite Urine Bilirubin Urine Urobilinogen Ur Leukocyte Esterase Urine RBC Urine WBC Ur Squamous Epith Cells Urine Bacteria Urine Mucus Assessment/Plan All Active Problems Dehydration (Acute) Debility (Acute) Acute cystitis with hematuria (Acute) Abscess of right thigh (Acute) Sepsis (Acute) UTI (urinary tract infection) with pyuria (Acute) Osteomyelitis (Acute) 1. Acute cystitis - UA very positive, not able to feel dysuria. Chronic incontinence. Hx of neurogenic bladder and used to have gan. No longer has gan. Start rocephin and follow cultures. PVR to see if he is retaining may need to straight cath or place gan. He has grown multiple bacteria in his urine in the past when he has had a gan. No fever/leukocytosis -CT abdomen shows bladder thickening and retained stool throughout the colon. 2. Nausea / vomiting dehydration - 2/2 acute cystitis. Supportive care with anti emetics and IV fluids 3. Colostomy - ostomy care, stool quite firm now, but chronically firm. Start bowel regimen and hydrate with IV fluids 4. Hx Paraplegia 2/2 Transverse myelitis - since 2016. colostomy, paraplegia with no sensation below belly button however his sensation does fluctuate. LE spasms but no sensation or ability to control LE. Worsening of spasms and contraction - Out of gerardo, baclofen, pain meds. Restart tonight. 5. Anx depression - lexapro 6. Nicotine abuse - expresses desire to quit. patch, counselling on cessation. 7. Continues to use marijuana, states no further IV drug use. Tox screen to confirm. DVT ppx: lovenox DC Planning: PTOT evals. Likely home with step-mom. Just taken out of [facility]. This patient was seen by Cornelius Cole PA-C under the supervision of Dr. Peraza.
[2018-09-11 17:53] VITALS: PULSE 68; RESP 16; O2SAT 99
[2018-09-11 18:00] VITALS: BMI 18.2
[2018-09-11 18:03] VITALS: BP 109/72; PULSE 89; RESP 16; TEMP 36.6; O2SAT 98
[2018-09-11 18:41] VITALS: O2SAT 98
[2018-09-11] MEDS: Gabapentin 800 MG Tablet PO ×2 (18:55→22:01)
[2018-09-11] MEDS: Psyllium 1 PACKET PO (18:56)
[2018-09-11] MEDS: Baclofen 10 MG Tablet 20 MG PO ×2 (18:56→22:01)
[2018-09-11 18:59] LABS: Magnesium 1.9 mg/dL (1.6-2.6)
[2018-09-11] MEDS: oxyCODONE 5 MG Tablet PO (19:59)
[2018-09-11] MEDS: Famotidine 20 MG Tablet PO (22:01)
[2018-09-11] MEDS: Senna/Docusate Sodium 1 Tablet 2 TABLET PO (22:01)
[2018-09-11 22:36] LABS: Amphetamine Urine VISTA NEGATIVE (<1000 ng/mL); Barbiturate Urine VISTA NEGATIVE (< 200 ng/mL); Benzodiazepine Urine VISTA NEGATIVE (< 200 ng/mL); Cocaine Urine VISTA NEGATIVE (< 300 ng/mL); Ecstacy Urine VISTA NEGATIVE (< 500 ng/mL); Methadone Urine VISTA NEGATIVE (< 300 ng/mL); PCP Urine VISTA NEGATIVE (< 25 ng/mL); THC Urine VISTA POSITIVE (< 50 ng/mL); Vista UDS pH Range 6
[2018-09-12] VITALS: BP 93/54; PULSE 69; RESP 16; TEMP 37.1; O2SAT 97
[2018-09-12] MEDS: 0.9% Normal Saline 1,000 ML 125 ML IV ×2 (02:05→09:49)
[2018-09-12] MEDS: oxyCODONE 5 MG Tablet PO ×3 (04:15→21:15)
[2018-09-12 05:00] VITALS: BP 106/59; PULSE 68; RESP 16; TEMP 36.8; O2SAT 98
[2018-09-12] MEDS: proMETHazine 25 MG/ML Syringe 6.25 MG IV (05:52)
[2018-09-12] MEDS: Enoxaparin 40 MG/0.4 ML Syringe SC (06:00)
[2018-09-12 06:35] LABS: Absolute Lymphocyte Count 1.78 X10^3/ul (0.83-4.51); Absolute Neutrophil Count 4.2 X10^3/uL (2.0-7.7); Basophil# 0.02 X10^3/uL; Basophil% 0.3 % (0-1); Eosinophil# 0.17 X10^3/uL; Eosinophils% 2.5 % (0-5); Hematocrit 43.4 % (40-54); Hemoglobin 14.3 g/dl (13.0-16.5); Lymphocyte # 1.78 X10^3/ul (4.0); Mean Corp Hgb Conc 32.9 g/gl (32-36); Mean Corpuscular Hgb 31.2 pg (27.0-32.0); Mean Corpuscular Volume 94.6 fL (80-94); Mean Platelet Vol. 11.4 fl (6.2-12.0); Monocyte# 0.71 X10^3/uL; Monocyte% 10.4 % (0-10); Neutrophil # 4.15 X10^3/uL (2.7-7.7); Neutrophil % 60.5 % (47-70); POSITIVE COUNT NO; POSITIVE DIFFERENTIAL NO; POSITIVE MORPHOLOGY NO; Platelet Count 109 K/mm3 (150-450); RBC Distribution Width CV 13.7 % (11.6-14.6); RBC Distribution Width SD 45.6 fl (35.1-43.9); Red Blood Count 4.59 M/mm3 (4.6-6.2); White Blood Count 6.9 K/mm3 (4.4-11.0)
[2018-09-12 06:47] LABS: Anion Gap 7 (5-15); BUN 15 mg/dL (7-18); BUN/Creat Ratio 33.4 RATIO (10-20); Calcium,Total 8.3 mg/dL (8.5-10.1); Chloride 112 mmol/L (98-107); Creatinine, Serum 0.45 mg/dL (0.70-1.30); EST Glomerular Filtration Rate 239 mL/min (>60); Est Glom Filt Rate - Afr Amer 289 mL/min (>60); Estimated Creatinine Clearance 207.17 ml/min; Glucose 94 mg/dL (74-106); Potassium 3.8 mmol/L (3.5-5.1); Sodium Level 145 mmol/L (136-145)
[2018-09-12] MEDS: Ceftriaxone 1 GM/50 ML BAG IV (09:49)
[2018-09-12] MEDS: Baclofen 10 MG Tablet 20 MG PO ×2 (09:53→14:16)
[2018-09-12] MEDS: Escitalopram Oxalate 20 MG Tablet PO (09:53)
[2018-09-12] MEDS: Famotidine 20 MG Tablet PO ×2 (09:54→21:16)
[2018-09-12] MEDS: Psyllium 1 PACKET PO (09:54)
[2018-09-12] MEDS: Senna/Docusate Sodium 1 Tablet 2 TABLET PO (09:54)
[2018-09-12] MEDS: Gabapentin 800 MG Tablet PO ×4 (09:54→21:15)
[2018-09-12] MEDS: Lidocaine 5% Patch 1 PATCH TOPICAL (09:55)
--- NOTE | 2018-09-12 10:04 | PCM.PN.HOSP ---
Patient Problems: Active and Suspected Problems Acute cystitis with hematuria (Acute) Subjective: Patient is awake and alert. Patient has paraplegia, chronic neurogenic bladder with prior indwelling Gan catheter, tobacco use moderate protein calorie malnutrition. Was discharged from SNF recently. Vitals/I&O's: Vital Signs Temp Pulse Resp BP Pulse Ox 98.3 F 68 16 106/59 L 98 09/12/18 05:00 09/12/18 05:00 09/12/18 05:00 09/12/18 05:00 09/12/18 05:00 Oxygen Delivery Method Room Air Weight: 130 lb 15.273 oz Body Mass Index (BMI) 18.2 Intake and Output for Last 24 Hours 09/10/18 09/11/18 09/12/18 23:59 23:59 23:59 Intake Total 1132 / 1132 1043 / 1043 Balance 1132 / 1132 1043 / 1043 General: Alert, Oriented x3, Cooperative, - - Emaciated HEENT: Atraumatic, PERRLA, EOMI, Normocephalic Neck: Supple, No JVD, Negative Carotid Bruits Lungs: Clear to auscultation, No rhonchi, No wheeze, No rales, Diminished Cardiovascular: Regular rate, Regular Rhythm, Normal S1, Normal S2, No murmurs Abdomen: Bowel Sounds Present, Soft, Non Tender, Non-Distended, - - Left-sided colostomy Extremities: No edema, Capillary Refill Less than 3 Seconds Skin: No rashes, No breakdown Musculoskeletal: No Tenderness to Palpation of Joints or Extremities, Arthritic Changes, Muscle Wasting, - - Flaccid paraplegia Neurological: Cranial nerves II-XII grossly intact, - - DTR 0-1. Paraplegia. Neurogenic bladder Psych/Mental Status: Normal Affect, Appropriate Laboratory Results 09/11/18 15:14: WBC 9.3, RBC 5.05, Hgb 16.3, Hct 47.8, MCV 94.7 H, MCH 32.3 H, MCHC 34.1, RDW 13.5, RDW Differential 46.5 H, Plt Count 123 L, MPV 10.9, Immature Gran % (Auto) 0.100, Neut % (Auto) 79.7 H, Lymph % (Auto) 11.8 L, [place] % (Auto) 7.7, Eos % (Auto) 0.6, Baso % (Auto) 0.1, Absolute Neuts (auto) 7.4, Absolute Lymphs (auto) 1.10, Total Counted Not Reportable 09/11/18 15:14: Sodium 139, Potassium 3.6, Chloride 106, Carbon Dioxide 22.0, Anion Gap 11, BUN 14, Creatinine 0.58 L, Estim Creat Clear Calc 179.13, Est GFR (MDRD) Af Amer 217, Est GFR (MDRD) Non-Af 179, BUN/Creatinine Ratio 24.3 H, Glucose 82, Calcium 9.2, Total Bilirubin 0.60, AST 15, ALT 15 L, Alkaline Phosphatase 72, Total Protein 7.6, Albumin 4.4, Globulin 3.2, Albumin/Globulin Ratio 1.4, Lipase 48 L 09/11/18 15:14: Phosphorus 2.0 L, Magnesium 1.9 09/11/18 15:30: Urine Color Yellow, Urine Clarity Sl. Cloudy, Urine pH 6.0, Ur Specific [place] 1.010, Urine Protein 30 H, Urine Glucose (UA) Normal, Urine Ketones 150 H, Urine Occult Blood 150 H, Urine Nitrite Positive H, Urine Bilirubin Negative, Urine Urobilinogen Normal, Ur Leukocyte Esterase 500 H, Urine RBC 50-100 SEEN, Urine WBC 50-100 SEEN, Ur Squamous Epith Cells 0 SEEN, Urine Bacteria 4+, Urine Mucus 0 SEEN 09/11/18 15:30: Urine Opiates Screen NEGATIVE, Urine Methadone Screen NEGATIVE, Ur Barbiturates Screen NEGATIVE, Ur Phencyclidine Scrn NEGATIVE, Ur Amphetamines Screen NEGATIVE, U Methamphetamin-MDMA NEGATIVE, U Benzodiazepines Scrn NEGATIVE, Urine Cocaine Screen NEGATIVE, U Cannabinoids Screen POSITIVE H, Ur Drug Screen Comment 09/11/18 15:40: Lactic Acid 0.9 09/12/18 06:15: WBC 6.9, RBC 4.59 L, Hgb 14.3, Hct 43.4, MCV 94.6 H, MCH 31.2, MCHC 32.9, RDW 13.7, RDW Differential 45.6 H, Plt Count 109 L, MPV 11.4, Immature Gran % (Auto) 0.300, Neut % (Auto) 60.5, Lymph % (Auto) 26.0, [place] % (Auto) 10.4 H, Eos % (Auto) 2.5, Baso % (Auto) 0.3, Absolute Neuts (auto) 4.2, Absolute Lymphs (auto) 1.78, Total Counted Not Reportable 09/12/18 06:15: Sodium 145, Potassium 3.8, Chloride 112 H, Carbon Dioxide 26.0, Anion Gap 7, BUN 15, Creatinine 0.45 L, Estim Creat Clear Calc 207.17, Est GFR (MDRD) Af Amer 289, Est GFR (MDRD) Non-Af 239, BUN/Creatinine Ratio 33.4 H, Glucose 94, Calcium 8.3 L Current Medications Acetaminophen (Tylenol) 650 mg PO Q6H PRN PRN PRN Reason: Non-cardiac pain (mod-severe) Al Hydroxide/Mg Hydroxide (Mylanta Ii) 15 - 30 ml PO Q4H PRN PRN PRN Reason: INDIGESTION Albuterol Sulfate (Ventolin Aerosols) 2.5 mg INHALATION Q2H PRN PRN PRN Reason: dyspnea, wheezing Baclofen (Lioresal) 20 mg PO 4X/DAY [facility] Last Admin: 09/12/18 09:53 Dose: 20 mg Documented by: Dextrose (D50w Syringe) 0 gm IV X1 PRN; Protocol PRN Reason: Hypoglycemia Docusate Sodium (Colace) 100 mg PO BID PRN PRN PRN Reason: Constipation Enoxaparin Sodium (Lovenox) 40 mg SC DAILY@0600 [facility] Last Admin: 09/12/18 06:00 Dose: 40 mg Documented by: Escitalopram Oxalate (Lexapro) 20 mg PO DAILY [facility] Last Admin: 09/12/18 09:53 Dose: 20 mg Documented by: Famotidine (Pepcid) 20 mg PO BID [facility] Last Admin: 09/12/18 09:54 Dose: 20 mg Documented by: Fluticasone Propionate (Flonase Nasal [place]) 2 spray NASAL DAILY [facility] Last Admin: 09/12/18 09:53 Dose: Not Given Documented by: Gabapentin (Neurontin) 800 mg PO 4X/DAY [facility] Last Admin: 09/12/18 09:54 Dose: 800 mg Documented by: Glucagon () 1 mg IM .X1 PRN PRN Reason: Hypoglycemia Hydralazine HCl (Apresoline Iv) 10 mg IV Q4H PRN PRN PRN Reason: SBP > 160 Sodium Chloride () 1,000 mls @ 125 mls/hr IV .Q8H [facility] Last Admin: 09/12/18 09:49 Dose: 125 mls/hr Documented by: Ceftriaxone Sodium (Rocephin) 1 gm in 50 mls @ 100 mls/hr IV Q24 [facility] Last Admin: 09/12/18 09:49 Dose: 100 mls/hr Documented by: Lidocaine (Lidoderm Patch) 1 patch TOPICAL DAILY [facility] Last Admin: 09/12/18 09:55 Dose: 1 patch Documented by: Magnesium Hydroxide (Milk Of Magnesia) 30 ml PO DAILY PRN PRN PRN Reason: Constipation Melatonin (Melatonin) 3 mg PO QHS PRN PRN PRN Reason: INSOMNIA Nicotine (Nicoderm Cq (Pbkc)) 14 mg TRANSDERM. DAILY [facility] Last Admin: 09/12/18 09:54 Dose: 14 mg Documented by: Nutritional Formula (Lactose Free) (Ensure Enlive) 120 ml PO 4X/DAY [facility] Last Admin: 09/12/18 09:52 Dose: Not Given Documented by: Ondansetron HCl (Zofran) 4 mg IV Q8H PRN PRN PRN Reason: NAUSEA/VOMITING Last Admin: 09/11/18 23:43 Dose: 4 mg Documented by: Oxycodone HCl (Oxyir) 5 - 10 mg PO Q4H PRN PRN PRN Reason: SEVERE PAIN (6-10/10) Last Admin: 09/12/18 04:15 Dose: 10 mg Documented by: Promethazine HCl (Phenergan) 6.25 mg IV Q4H PRN PRN PRN Reason: NAUSEA/VOMITING Last Admin: 09/12/18 05:52 Dose: 6.25 mg Documented by: Psyllium Hydrophilic Mucilloid (Metamucil) 1 packet PO DAILY [facility] Last Admin: 09/12/18 09:54 Dose: 1 packet Documented by: Senna/Docusate Sodium (Senokot-S, Fern-Colace) 2 tablet PO BID [facility] Last Admin: 09/12/18 09:54 Dose: 2 tablet Documented by: Sodium Chloride () 5 - 15 ml IV UD PRN PRN Reason: SALINE FLUSH Medical Necessity - Tobacco Use Smoking Status: Current every day smoker Tobacco Use: Cigarettes Assessment/Plan All Active Problems Dehydration (Acute) Debility (Acute) Acute cystitis with hematuria (Acute) Abscess of right thigh (Acute) Sepsis (Acute) UTI (urinary tract infection) with pyuria (Acute) Osteomyelitis (Acute) The patient is a 27 y/o M with past history of Trasverse Myelitis with paraplegia, IVDA, Neurogenic bladder with prior chronic indwelling gan catheter, Tobacco use, Moderate Protein-Calorie Malnutrition, Anxiety and Depression was admitted for nausea, vomiting poor oral intake for 2 to 3 days. Patient also had muscle cramping and spasm after 2 days of baclofen. No fever or chills or leukocytosis. 1. Acute cystitis - UA positive for 5200 RBC, WBC, nitrite and leukocyte esterase. Patient does not have sensation of bladder filling therefore usual lower urinary tract symptoms is not sensitive or specific for UTI in this patient. Chronic incontinence. Hx of neurogenic bladder and used to have gan. No longer has gan. Ideally, patient needs intermittent self-catheterization every 4 hours if patient has poor hand dexterity and coordination therefore needs immediate family member to be trained. On IV Rocephin. Preliminary culture shows gram-negative rods more than 100,000. Bladder scan and intermittent catheterization every 4 hours. -CT abdomen shows bladder thickening and retained stool throughout the colon. 2. Nausea / vomiting dehydration - 2/2 acute cystitis. The patient is hydrated well. Vomiting resolved. Discontinue IV fluid and encourage oral intake. 3. Colostomy - ostomy care, stool quite firm now, but chronically firm. On bowel regimen 4. Hx Paraplegia 2/2 Transverse myelitis - since 2016. colostomy, paraplegia with no sensation below belly button however his sensation does fluctuate. LE spasms but no sensation or ability to control LE. Worsening of spasms and contraction - Out of gerardo, baclofen, pain meds. Restart tonight. 5. Anx depression - lexapro 6. Nicotine abuse - expresses desire to quit. patch, counselling on cessation. 7. Continues to use marijuana, states no further IV drug use. Tox screen to confirm. DVT ppx: lovenox Clinical Impression(s) from Imaging Studies Abdomen CT 09/11/18 15:24 IMPRESSION: No suspicious solid organ abnormality No CT evidence of an acute inflammatory process, normal appendix visualized Retained stool throughout the colon. There is a left lower quadrant ostomy free of complication Nonspecific but stable bladder wall thickening Code Visit Inpatient E&M: 31464 Subs Hosp L3
[2018-09-12 12:00] VITALS: BP 111/60; PULSE 88; RESP 16; TEMP 36.7; O2SAT 95
--- NOTE | 2018-09-12 12:05 | CASEMGMT ---
RN CM Note: attempted assessment. Unable to complete at this time. PT/OT evaluations pending. Ghislaine BOWENN RN ACM
--- NOTE | 2018-09-12 12:15 | NURSING ---
Colostomy appliance intact. stoma appears beefy red. will monitor as needed. pt resting at this time.
[2018-09-12] MEDS: Ondansetron 4 MG/2 ML Vial IV (14:16)
[2018-09-12] MEDS: 0.9% NaCl Peripheral Flush Adult/Peds IV ×2 (14:17→22:41)
--- NOTE | 2018-09-12 15:29 | CHAPLAIN ---
patient is sleeping, did not disturb
[2018-09-12 15:52] VITALS: BP 100/62; PULSE 75; RESP 18; TEMP 36.9; O2SAT 97
[2018-09-12] MEDS: Acetaminophen 325 MG Tablet 650 MG PO (16:04)
[2018-09-12] MEDS: Docusate Sodium 100 MG Capsule PO (16:05)
[2018-09-12] MEDS: Polyethylene Glycol 3350 17 GM PACKET PO (16:05)
[2018-09-12] MEDS: Bisacodyl 5 MG Tablet PO (18:04)
[2018-09-12] MEDS: Baclofen 10 MG Tablet PO ×2 (18:04→21:15)
[2018-09-12 21:30] VITALS: BP 102/71; PULSE 79; RESP 16; TEMP 37.1; O2SAT 100
[2018-09-12] MEDS: proMETHazine 25 MG/ML Syringe 12.5 MG IV (22:41)
[2018-09-13 01:58] VITALS: BP 107/70; PULSE 59; RESP 16; TEMP 37.2; O2SAT 99
[2018-09-13] MEDS: oxyCODONE 5 MG Tablet PO ×3 (02:57→12:32)
[2018-09-13] MEDS: Enoxaparin 40 MG/0.4 ML Syringe SC (06:50)
--- NOTE | 2018-09-13 08:36 | DCINST_ITS ---
- Discharge Diagnoses Current Active Problems: Current Active and Chronic Problems Neurogenic bladder (Chronic) Acute cystitis with hematuria (Acute) You will use the following diet at home:: Regular Your food should be the consistency of: Regular Discharge Activity: May Not Drive Allergies/Adverse Reactions: Allergies adhesive tape Allergy (Verified 08/12/18 11:37) Rash aspirin Allergy (Verified 08/12/18 11:37) Unknown NSAIDS (Non-Steroidal Anti-Inflamma Allergy (Verified 08/12/18 11:37) Hives GREEN DYE Allergy (Uncoded 08/12/18 11:37) Unknown Medications to take at Discharge Acetaminophen [Tylenol Tablet] 650 mg PO Q6H PRN 02/09/16 Cholecalciferol (VIT D3) [Vitamin D3] 2,000 unit PO DAILY 02/09/16 Famotidine [Pepcid] 20 mg PO BID 03/29/16 Gabapentin [Neurontin] 800 mg PO 4X/DAY 04/25/16 Fluticasone 0.05% [Flonase Nasal [place]] 2 spray NASAL DAILY 10/11/16 Ondansetron [Zofran Odt] 4 mg PO Q8H PRN PRN 12/15/17 proMETHazine tablet [Phenergan tablet] 25 mg PO Q6H PRN PRN #10 tab 12/15/17 Escitalopram Oxalate [Lexapro] 20 mg PO DAILY 08/12/18 Lidocaine [Lidocare] 1 each TP DAILY 08/12/18 Percocet 10-325 mg Tablet 1 tab PO Q12H PRN PRN 08/12/18 Naproxen 250 mg PO Q12H PRN PRN 09/11/18 Baclofen 10 mg PO 4X/DAY #0 09/13/18 Ciprofloxacin [Cipro] 500 mg PO BID #8 tab 09/13/18 Guaifenesin [Mucinex] 1,200 mg PO BID #14 tab.er.12h 09/13/18 Nicotine [Nicoderm] 14 mg TRANSDERM. DAILY #30 patch 09/13/18 Polyethylene Glycol 3350 [Miralax] 17 gm PO DAILY packet 09/13/18 Psyllium [Metamucil] 1 packet PO DAILY #7 packet 09/13/18 Senna/Docusate Sodium [Senokot-S] 2 tab PO BID PRN PRN #30 tab 09/13/18 The following prescriptions were given: Ciprofloxacin [Cipro] 500 mg PO BID #8 tab Transmission Status: [facility] Psyllium [Metamucil] 1 packet PO DAILY #7 packet Transmission Status: Pending to [facility] Guaifenesin [Mucinex] 1,200 mg PO BID #14 tab.er.12h Transmission Status: Pending to [facility] Nicotine [Nicoderm] 14 mg TRANSDERM. DAILY #30 patch Transmission Status: Pending to [facility] Senna/Docusate Sodium [Senokot-S] 2 tab PO BID PRN PRN #30 tab PRN Reason: constipation Transmission Status: Pending to [facility] Primary Care Physician: Abdulkadir Vera MD [NON-STAFF] - Test Results: Test results from this visit will be discussed in further detail at your follow- up appointment, if applicable. Please Follow Up With: Quinten Doan DO When: 2pm Dr. Doan in [place] Please Follow Up With: Cortes Islas MD When: for bladder incontinence/neurogenic bladder. Paraplegia
--- NOTE | 2018-09-13 08:38 | DS.PCM_ITS ---
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 Nicotine dependence (Chronic) F17.200 Decubitus skin ulcer (Chronic) Bilateral buttocks Transverse myelitis (Chronic) G37.3 Functional quadriplegia (Chronic) Neurogenic bladder with indwelling Gan (Chronic) Hospital Course and Treatment Consultations 09/11/18 18:05 Consult: Onc/Wound/janitor cleaner Routine Comment: Operations: None Summary of Care Provided: T [] The patient is a 27 y/o M with past history of Trasverse Myelitis with paraplegia, IVDA, Neurogenic bladder with prior chronic indwelling gan catheter, Tobacco use, Moderate Protein-Calorie Malnutrition, Anxiety and Depression was admitted for nausea, vomiting poor oral intake for 2 to 3 days. Patient also had muscle cramping and spasm after 2 days of baclofen. No fever or chills or leukocytosis. 1. Acute cystitis - UA positive for 5200 RBC, WBC, nitrite and leukocyte esterase. Patient does not have sensation of bladder filling therefore usual lower urinary tract symptoms is not sensitive or specific for UTI in this patient. Patient stated he has recent onset incontinence both sensory and motor for last 3 days. He was never catheterized or had self-catheterization. Patient was recommended to follow-up urologist Dr. Shayy Campuzano in 1 to 2 weeks to further evaluate bladder function including urodynamic studies. Urine culture shows Providencia stuartii sensitive to Rocephin On IV Rocephin. Patient was given a prescription for Cipro 500 mg twice daily for 4 more days to complete a total of 7 days. -CT abdomen shows bladder thickening and retained stool throughout the colon. 2. Nausea / vomiting dehydration - 2/2 acute cystitis. The patient is hydrated well. Vomiting resolved. Discontinue IV fluid and encourage oral intake. 3. Colostomy - ostomy care, stool quite firm now, but chronically firm. On bowel regimen 4. Hx Paraplegia 2/2 Transverse myelitis - since 2016. colostomy, paraplegia with no sensation below belly button however his sensation does fluctuate. LE spasms but no sensation or ability to control LE. Worsening of spasms and contraction - Out of gerardo, baclofen, pain meds. Restart tonight. 5. Anx depression - lexapro 6. Nicotine abuse - expresses desire to quit. patch, counselling on cessation. 7. Continues to use marijuana, states no further IV drug use. Tox screen to confirm. DVT ppx: lovenox Discharge medication reconciliation done. Discharge follow-up instructions completed. Discharge process discussed with the patient and all questions were answered to patient's satisfaction. Prescription given for MiraLAX, Metamucil, baclofen, Neurontin, Mucinex, nicotine patch, senna?S, Phenergan. Patient request for Percocet was declined. Patient has been getting Percocet for PCP. Advised to follow with PCP on Sunday. Total time spent, exact 35 minutes on discharge meds reconciliation, examination, review of imaging and blood test and discussion with the patient on follow-up instructions. Clinical Impression(s) from Imaging Studies Abdomen CT 09/11/18 15:24 IMPRESSION: No suspicious solid organ abnormality No CT evidence of an acute inflammatory process, normal appendix visualized Retained stool throughout the colon. There is a left lower quadrant ostomy free of complication Nonspecific but stable bladder wall thickening Subjective: Seen and examined. Patient today said he used to feel bladder sensation and used to empty bladder with occasional incontinence to 3 days ago. For last 2 to 3 days he spon taneously urinates his briefs and lost control of the bladder. Denies any previous Gan catheterization/urethral instrumentation. Objective: General: Alert, Oriented x3, Cooperative, Emaciated HEENT: Atraumatic, PERRLA, EOMI, Normocephalic Neck: Supple, No JVD, Negative Carotid Bruits Lungs: Clear to auscultation, No rhonchi, No wheeze, No rales, Diminished Cardiovascular: Regular rate, Regular Rhythm, Normal S1, Normal S2, No murmurs Abdomen: Bowel Sounds Present, Soft, Non Tender, Non-Distended, Left-sided colostomy Extremities: No edema, Capillary Refill Less than 3 Seconds Skin: No rashes, No breakdown Musculoskeletal: No Tenderness to Palpation of Joints or Extremities, Arthritic Changes, Muscle Wasting, - - Flaccid paraplegia Neurological: Cranial nerves II-XII grossly intact, DTR 0-1/4. Paraplegia. Neurogenic bladder?, patient claimed he had spontaneously urinating about 3 days ago Psych/Mental Status: Normal Affect, Appropriate - Physical Exam Vital Signs Temp Pulse Resp BP Pulse Ox 98.9 F 59 L 16 107/70 99 09/13/18 01:58 09/13/18 01:58 09/13/18 01:58 09/13/18 01:58 09/13/18 01:58 Oxygen Delivery Method Room Air Weight: 130 lb 15.273 oz Body Mass Index (BMI) 18.2 Intake and Output for Last 24 Hours 09/11/18 09/12/18 09/13/18 23:59 23:59 23:59 Intake Total 1132 / 1132 3572 / 3572 500 / 500 Output Total 1525 / 1525 175 / 175 Balance 1132 / 1132 2047 / 2047 325 / 325 Microbiology Past 72 Hours 09/11/18 16:23 Urine Culture - Final Urine Catheter - Catheter Providencia stuartii Discharge Activity: May Not Drive Home Medications: Medications to take at Discharge Acetaminophen [Tylenol Tablet] 650 mg PO Q6H PRN 02/09/16 Cholecalciferol (VIT D3) [Vitamin D3] 2,000 unit PO DAILY 02/09/16 Famotidine [Pepcid] 20 mg PO BID 03/29/16 Gabapentin [Neurontin] 800 mg PO 4X/DAY 04/25/16 Fluticasone 0.05% [Flonase Nasal [place]] 2 spray NASAL DAILY 10/11/16 Escitalopram Oxalate [Lexapro] 20 mg PO DAILY 08/12/18 Lidocaine [Lidocare] 1 each TP DAILY 08/12/18 Percocet 10-325 mg Tablet 1 tab PO Q12H PRN PRN 08/12/18 Naproxen 250 mg PO Q12H PRN PRN 09/11/18 Baclofen 10 mg PO 4X/DAY #14 tab 09/13/18 Ciprofloxacin [Cipro] 500 mg PO BID #8 tab 09/13/18 Gabapentin [Neurontin] 400 mg PO 4X/DAY #14 tab 09/13/18 Guaifenesin [Mucinex] 1,200 mg PO BID #14 tab.er.12h 09/13/18 Nicotine [Nicoderm] 14 mg TRANSDERM. DAILY #30 patch 09/13/18 Polyethylene Glycol 3350 [Miralax] 17 gm PO DAILY packet 09/13/18 Psyllium [Metamucil] 1 packet PO DAILY #7 packet 09/13/18 Senna/Docusate Sodium [Senokot-S] 2 tab PO BID PRN PRN #30 tab 09/13/18 proMETHazine tablet [Phenergan tablet] 25 mg PO Q6H PRN PRN #10 tab 09/13/18 Following Prescrptions Were Given to Patient: Baclofen 10 mg PO 4X/DAY #14 tab Transmission Status: Received by [facility] Ciprofloxacin [Cipro] 500 mg PO BID #8 tab Transmission Status: Received by [id number] [facility] Psyllium [Metamucil] 1 packet PO DAILY #7 packet Transmission Status: Received by [facility] Guaifenesin [Mucinex] 1,200 mg PO BID #14 tab.er.12h Transmission Status: Received by [facility] Gabapentin [Neurontin] 400 mg PO 4X/DAY #14 tab Transmission Status: Received by [facility] Nicotine [Nicoderm] 14 mg TRANSDERM. DAILY #30 patch Transmission Status: Received by [facility] proMETHazine tablet [Phenergan tablet] 25 mg PO Q6H PRN PRN #10 tab PRN Reason: Nausea Transmission Status: Received by [facility] Senna/Docusate Sodium [Senokot-S] 2 tab PO BID PRN PRN #30 tab PRN Reason: constipation Transmission Status: Received by [facility] Primary Care Physician: Abdulkadir Vera MD [NON-STAFF] - Please Follow Up With: Quinten Doan DO When: 2pm Dr. Doan in [place] Please Follow Up With: Cortes Islsa MD When: for bladder incontinence/neurogenic bladder. Paraplegia Medical Necessity - Tobacco Use Smoking Status: Current every day smoker Tobacco Use: Cigarettes Meaningful Use Info Meaningful Use Diagnoses (Choose all that apply): None applicable Code Visit Inpatient E&M: 58496 [facility]
--- NOTE | 2018-09-13 09:30 | CASEMGMT ---
RN CM Note: attempted to see pt for Assessment- PT/OT working with pt. Ghislaine BAUTISTA RN ACM
--- NOTE | 2018-09-13 10:09 | NURSING ---
Colostomy appliance intact. JERSEY Marrero had changed the appliance yesterday afternoon. applied Medipore tape to the outer tape edges per patient request. pt tends to pick at the tape. pt has been discharged to home. denies further needs at this time.
[2018-09-13] MEDS: Ceftriaxone 1 GM/50 ML BAG IV (10:21)
[2018-09-13] MEDS: Acetaminophen 325 MG Tablet 650 MG PO (10:21)
[2018-09-13] MEDS: 0.9% NaCl Peripheral Flush Adult/Peds IV (10:21)
[2018-09-13] MEDS: Ondansetron 4 MG/2 ML Vial IV (10:21)
[2018-09-13] MEDS: Gabapentin 800 MG Tablet PO (10:24)
[2018-09-13] MEDS: Baclofen 10 MG Tablet PO (10:24)
[2018-09-13] MEDS: Escitalopram Oxalate 20 MG Tablet PO (10:24)
[2018-09-13] MEDS: Lidocaine 5% Patch 1 PATCH TOPICAL (10:24)
[2018-09-13] MEDS: Famotidine 20 MG Tablet PO (10:24)
[2018-09-13] MEDS: Polyethylene Glycol 3350 17 GM PACKET PO (10:27)
--- NOTE | 2018-09-13 10:33 | CASEMGMT ---
RN CM Note: Attempted to see pt, nursing care being completed. Ghislaine BOWENN RN ACM
--- NOTE | 2018-09-13 10:35 | CASEMGMT ---
JERSEY CM Assessment Presentation: UTI, Neurogenic bladder Pt lives with his mother in one story home. Recent SNF stay @ [facility], home 2 weeks ago. Pt states he has a nursing home social worker working with him through [facility] to assist with getting supplies, equipment and home health aides. Pt does not have name, for this person or his DME company at hospital, but states he can do this himself when he gets home. Specialists: Dr. Islas PCP: Dr. Doan Preferred Pharmacy: [facility] Insurance: [facility] Prescription Benefit: yes LNOK: Mother, Shereen Peña Living Arrangements: Lives in one story home with his Mother. Pt needs assistance with ADL, dressing, meals etc. Transportation: can transfer to car and have mother drive him, or nursing home social worker assists him with setting up transportation to physician offices DME: Hospital bed (is working on getting a new bed with Dr. Doan), transfer bench, electric wheelchair. HHC: no, pt is declining. States nursing home social worker is working on getting aide services set up. States he does not have nurses coming to home. His mother is assisting him now. Patient DC goals: Home DC PLAN: Home. Ghislaine BAUTISTA RN ACM
[2018-09-13 10:36] VITALS: BP 88/55; PULSE 88; RESP 16; TEMP 36.6; O2SAT 99
== END 2018-09-13 12:41 | disposition home or self-care (01) | DRG 463 ==
LOC: ED 15:43 → MS2 17:39
PROVIDERS: Admitting Provider Family Medicine; Emergency Provider Emergency Medicine; Family Provider Family Medicine; PCP Family Medicine; Referring Provider Family Medicine; Visit Provider Internal Medicine
DX: N30.01 Acute cystitis with hematuria (principal); E44.0 Moderate protein-calorie malnutrition; G82.20 Paraplegia, unspecified; G37.3 Acute transverse myelitis in demyelinating disease of central nervous system; N31.9 Neuromuscular dysfunction of bladder, unspecified; Z68.1 Body mass index [BMI] 19.9 or less, adult; Z93.3 Colostomy status; F17.210 Nicotine dependence, cigarettes, uncomplicated; E86.0 Dehydration; F12.90 Cannabis use, unspecified, uncomplicated; B96.89 Other specified bacterial agents as the cause of diseases classified elsewhere; F32.9 Major depressive disorder, single episode, unspecified; F41.9 Anxiety disorder, unspecified
CPT/HCPCS: 36415; 74176; 80048; 80053; 80307; 81001; 83605; 83690; 83735; 84100; 85025; 87040; 87077; 87086; 87088; 87186; 97161; 97166; 97802; 99285; J7030; P9612; A4216; J2405

== ENCOUNTER 2018-10-17 14:16 | Emergency (ER) | payer MEDICAID, SELFPAY ==
[2018-10-17 14:17] VITALS: BP 149/72; PULSE 76; RESP 16; TEMP 36.9; O2SAT 99; BMI 19.5
--- NOTE | 2018-10-17 14:56 | ED.DCSUM_ITS ---
History of Present Illness Chief Complaint: Back Detail of Chief Complaint: Also here for a colostomy supplies Informant: Patient Onset: Today - Back pain Context: Sudden Onset Timing: Continuous Quality: Pain Location: Left lower back Current Severity: Mild Maximum Severity: Severe Worsened by: Spasms Relieved by: Nothing Associated Symptoms: No associated symptoms Narrative: Patient with history of chronic back pain who presents with atraumatic right back pain. He states is having spasms. He states the medicines he has been prescribed are not working. He is requesting pain medicine. He denies foot drop. He does report pain rating down his legs per triage. He also is requesting colostomy supplies. Prior similar symptoms: Yes Recent Illness/Hospitalization: No - Past Medical History (1) Debility Status: Acute (2) UTI (urinary tract infection) with pyuria Status: Acute (3) Decubitus skin ulcer Status: Chronic Comment: Bilateral buttocks (4) Functional quadriplegia Status: Chronic (5) History of intravenous drug use in remission Status: Chronic Comment: Z87.898 (6) Neurogenic bladder Status: Chronic (7) Nicotine dependence Status: Chronic Comment: F17.200 (8) Paraplegia, incomplete Status: Chronic Comment: G82.22 (9) Pressure sore of left ischium, stage 4 Status: Chronic Comment: L89.324 (10) Radiculopathy of lumbosacral region Status: Chronic (11) Transverse myelitis Status: Chronic Comment: G37.3 Past Medical History - Allergies and Home Meds Allergies/Adverse Reactions: Allergies adhesive tape Allergy (Verified 10/17/18 14:17) Rash aspirin Allergy (Verified 10/17/18 14:17) Unknown NSAIDS (Non-Steroidal Anti-Inflamma Allergy (Verified 10/17/18 14:17) Hives GREEN DYE Allergy (Uncoded 10/17/18 14:17) Unknown Primary Care Physician: Quinten Doan DO [Primary Care Provider] - Prior records reviewed: Yes Surgical History: - - Tympanostomy tubes. PEG tube. colostomy (permanent). excision right ischial pressure sore, Stage IV, with partial ostectomy for osteomyelitis and excision left ischial pressure sore, Stage IV, with partial ostectomy for osteomyelitis - 02/10/16. Lives: With Family Smoking Status: Unknown if ever smoked Drugs: - - Her and records history of drug use - Family History Paternal Family History: Reports: No pertinent history Maternal Family History: Reports: No pertinent history Review of Systems General: Denies: Chills, Fever, Malaise, Subjective, Sweats Gastrointestinal: Denies: Abdominal pain, Nausea, Vomiting, Diarrhea, Constipation, Hematochezia Genitourinary: Reports: - - Has indwelling [place] Musculoskeletal: Reports: Back pain. Denies: Myalgias, Arthralgias, Neck pain, Swelling, Extremity Pain Skin: Denies: Rash, Abscess, Abrasions, Wounds Neurological: Reports: Weakness - Tonic weakness. Denies: Numbness Psych: Reports: Depression Hematologic: Denies: Easy bruising, Easy bleeding Physical Exam Vital Signs/Narrative: Vital Signs Temp Pulse Resp BP Pulse Ox 10/17/18 14:17 98.5 F 76 16 149/72 H 99 Inital Vital Signs reviewed: Yes General: Well nourished, Well developed, No Acute Distress Head: Normocephalic, Atraumatic Eyes: Perrl, EOMI. Negative for: Pale conjunctiva, Scleral icterus, - ENT: Moist mucous membranes, No rhinorrhea, TM's clear Neck: Supple, Nontender, No lymphadenopathy, No JVD Cardiovascular: Regular rate, Regular rhythm, No murmurs, Normal S1, Normal S2 Respiratory: No distress, CTA bilaterally, Chest nontender Abdomen: Soft, Nontender, Nondistended, Normal bowel sounds Back: Normal Inspection. Negative for: Nontender, CVA tenderness, Spinal tenderness Extremities: Nontender, No edema, - - Negative straight leg test. Negative crossover test.. Negative for: Calf Tenderness Skin: Normal color, No rash Neurological: Alert, Oriented x3, Cranial nerves II-XII grossly intact. Negative for: Normal Strength, Normal Sensation, Normal Gait Psychological: Normal affect Diagnostic/Tx/Re-eval - Medical Decision Making Patient presents with atraumatic back pain. This most likely represents spasm. He was medicated with IV medication. We will have case management see him since he is requesting colostomy supplies. He states his colostomy supplies have not arrived and he has no supplies to change his bag. Patient was reassessed at 1515. He reports marked improvement of his pain.The director of social work for case management has not seen the patient. He will be discharged once she speaks with him and makes appropriate arrangement for colostomy supplies ED Disposition - Plan for ED Patient: Disposition: Home or Assisted Living Diagnosis: Spasm of muscle of lower back Instructions: BACK SPASM, No Trauma Referrals: Quinten Doan DO [Primary Care Provider] - As Needed
[2018-10-17] MEDS: Ondansetron 4 MG/2 ML Vial IV (15:03)
[2018-10-17] MEDS: Morphine 4 MG/ML Syringe IV (15:03)
--- NOTE | 2018-10-17 15:50 | CASEMGMT ---
Social Work: Referral from Dr. Hsu due to patient needing ostomy supplies. Met with patient in room. Patient states that he was discharged for [facility] in August with not D/C planning. Patient states that no one assisted patient in obtaining supplies. Patient did state that he was given a script but that a family member took it to the [facility] and he has not heard anything about when he will get the supplies. TC to [facility]. Spoke with SUMAYA Jimenez regarding patient D/C plan home. Barbara states that the Transitions Coordinator for [facility] was to meet patient at his home for arrangement of home needs post D/C but patient was not at the home despite an appointment time being set before D/C from [facility]. TC to Sandra Kee to assist in obtaining ostomy supplies. Sandra spoke with Dr. Hsu who signed a script for supplies. Sandra instructed patient to take script to [facility] for supplies. PLAN: patient discharged home with a script for ostomy supples. MIKIE Mai
--- NOTE | 2018-10-17 15:53 | NURSING ---
Was called to ED because patient states he was unable to get ostomy supplies after [facility]. States he has had the same appliance on for over a month. Patient's story is quite conflicting. States the intermediate failed to set him up for supplies. Then patient states that he had taken a script to the [facility] in [place]. Script written for ostomy supplies. Dr Hsu signed script and patient is to take it to [facility] in [place] to get filled since they are now able to get ostomy supplies for patients. ostomy appliance changed at this time as well. patient will be sent home with 3 more appliances which should easily get him through until he can get his supplies.
[2018-10-17 16:22] VITALS: BP 132/78; PULSE 70; RESP 16; O2SAT 97
== END 2018-10-17 16:24 | disposition home or self-care (01) ==
PROVIDERS: Emergency Provider Emergency Medicine; Family Provider Family Medicine; PCP Family Medicine
DX: M62.830 Muscle spasm of back (principal); R53.2 Functional quadriplegia; G37.3 Acute transverse myelitis in demyelinating disease of central nervous system; Z93.3 Colostomy status; Z87.440 Personal history of urinary (tract) infections; Z79.899 Other long term (current) drug therapy
CPT/HCPCS: 96374; 96375; 99283; A4216; J2405

== ENCOUNTER 2018-10-22 18:51 | Emergency (ER) | payer MEDICAID, SELFPAY ==
[2018-10-22 18:52] VITALS: BP 104/41; PULSE 81; RESP 18; TEMP 36.4; O2SAT 97; BMI 19.5
--- NOTE | 2018-10-22 18:55 | RAD_ITS ---
STUDY: X-RAY - RIGHT ANKLE REASON FOR EXAM: Male, 27 years old. Right foot got caught underneath the motorized wheelchair. Laceration of the great toe. TECHNIQUE: 3 view(s) of the ankle. COMPARISON: None. FINDINGS: There is generalized osteopenia of the distal tibia, fibula and osseous structures of the visualized hindfoot. There is no evidence of tibial or fibular fracture. Normal medial and lateral malleoli. Normal tibiotalar articulation and ankle mortise. Normal visualized talus and calcaneus. The visualized subtalar, talonavicular, calcaneocuboid and tarsal articulations are normal. Mild soft tissue prominence about the hindfoot. RAD/Ankle min 3 Views IMPRESSION: 1. No visualized fracture or dislocation. 2. Generalized osteopenia. 3. Mild soft tissue prominence. Electronically Signed: Michael Palacios DO at 19:23 EDT Tel [phone], Service support ,
--- NOTE | 2018-10-22 19:00 | RAD_ITS ---
STUDY: X-RAY - RIGHT FOOT CLINICAL: Male, 27 years old. Ran his right foot over with motorized wheelchair. Laceration on great toe. TECHNIQUE: view(s) of the foot. COMPARISON: None. FINDINGS: Mild generalized osteopenia. Normal talus, calcaneus, and tarsal bones. Normal visualized subtalar, talonavicular, calcaneocuboid, tarsal and tarsometatarsal articulations. Normal metatarsi. Normal metatarsophalangeal joint of the great toe. Normal tibial and fibular sesamoid bones. Normal interphalangeal joint of the great toe. Normal phalanges of the great toe. Normal second through fifth metatarsophalangeal joints. Normal interphalangeal joints and phalanges of the lesser toes. There is mild soft tissue swelling about the hindfoot. RAD/Foot min 3 Views IMPRESSION: Generalized osteopenia. There is no visualized fracture or dislocation. Electronically Signed: Michael Palacios DO at 19:26 EDT Tel [phone], Service support ,
[2018-10-22] MEDS: HYDROcodone Bitartrate/Apap 5/325 Tablet PO (20:43)
[2018-10-22] MEDS: Diphth,Pertuss(Acell),Tet Vac 0.5 ML Vial IM (20:43)
--- NOTE | 2018-10-22 20:47 | ED.DCSUM_ITS ---
- ER Visit Summary Date of Service: 10/22/18 Chief Complaint: Right foot injury History of Present Illness: The patient is a 27 M presenting with right foot injury. Patient was in a motorized wheelchair. He states he went over a bump and his foot was hanging off the wheelchair. It bent backward and the w heelchair ran over his foot. He has a history of paraplegia secondary to transverse myelitis. He has decreased sensation in his lower extremities. Denies other injuries. Last tetanus is unknown. Physical Examination: Vitals are stable. Patient is afebrile. Alert no acute distress. HEENT exam is unremarkable. Neck is supple. Lungs are clear and equal bilaterally. Heart is regular rate and rhythm. Extremities right great toe contusion and abrasion, no laceration.. Normal cap refill. Normal pulses. Skin is warm and dry. Remainder of exam is unremarkable. Emergency Department Course and Treatment: Patient was given tetanus IM, norco. Right ankle x-ray shows no fracture. Right foot x-ray shows nondisplaced fracture through the head of the first proximal phalanx. Right tib-fib x-ray shows no acute fracture. Toes were nadiya taped. Dressing was applied. He was put in a postop shoe. He is advised to follow-up with pain management. Advised return to ED for worsening complaints. Disposition: Discharge home Impression: Right great toe fracture This note was generated with [employer] dictation software. It may contain incorrect words, spelling, and punctuation that were not noted in review of the chart prior to signing ED Disposition - Plan for ED Patient: Instructions: FRACTURE, Toe [Closed] Referrals: Quinten Doan DO [Primary Care Provider] -
--- NOTE | 2018-10-22 20:50 | RAD_ITS ---
STUDY: X-RAY - RIGHT TIBIA AND FIBULA REASON FOR EXAM: Male, 27 years old. .Foot caught under motorized wheelchair. Pain. Foot fracture. TECHNIQUE: 2 view(s) of the tibia and fibula were obtained. COMPARISON: Right ankle, October 22, 2018. FINDINGS: Normal visualized tibia. Normal visualized fibula. There is no acute fracture, dislocation or destructive osseous pathology. The knee and ankle are grossly intact. History minimal soft tissue prominence over the hindfoot and ankle. RAD/Tibia & Fibula 2 Views IMPRESSION: No fracture or dislocation of the tibia and fibula. Electronically Signed: Michael Palacios DO at 21:12 EDT Tel [phone], Service support ,
[2018-10-22] MEDS: morphine 10 MG/ML Syringe IM (22:36)
[2018-10-22] MEDS: Ondansetron 4 MG/2 ML Vial IM (22:36)
[2018-10-22 22:51] VITALS: BP 112/71; PULSE 88; RESP 19; O2SAT 96
--- NOTE | 2018-10-22 22:59 | ED.DEP ---
ED Disposition - Plan for ED Patient: Instructions: FRACTURE, Toe [Closed] Referrals: Quinten Doan DO [Primary Care Provider] -
[2018-10-22 23:27] VITALS: BP 96/58; PULSE 67; RESP 17; O2SAT 98
== END 2018-10-22 23:27 | disposition home or self-care (01) ==
LOC: ED 20:01
PROVIDERS: Emergency Provider Emergency Medicine; Family Provider Family Medicine; PCP Family Medicine
DX: S92.414A Nondisplaced fracture of proximal phalanx of right great toe, initial encounter for closed fracture (principal); G82.20 Paraplegia, unspecified; G37.3 Acute transverse myelitis in demyelinating disease of central nervous system; Z99.3 Dependence on wheelchair; Z23 Encounter for immunization; Z72.0 Tobacco use; V89.0XXA Person injured in unspecified motor-vehicle accident, nontraffic, initial encounter; Y93.I9 Activity, other involving external motion; Y92.89 Other specified places as the place of occurrence of the external cause; Y99.8 Other external cause status
CPT/HCPCS: 73590; 73610; 73630; 90471; 90715; 96372; 99283; J2405

== ENCOUNTER 2018-10-28 10:04 | Day surgery (SDC) | payer MEDICAID, SELFPAY ==
[2018-10-28] VITALS (7 sets, daily range): BP systolic 83–106; BP diastolic 48–68; PULSE 67–86; RESP 16–18; TEMP 36.4–36.6; O2SAT 95–99; BMI 43.0
--- NOTE | 2018-10-28 10:50 | RAD_ITS ---
PROCEDURE: Caudal block. DATE OF EXAMINATION: October 28, 2018. INDICATION: Male, 27 years old. Chronic back pain. FLUOROSCOPY TIME (if supplied): (0:08) minutes/seconds Intraoperative imaging provided for caudal block. The spinal needle is seen overlying the posterior midportion of the sacrum. RAD/Fluor Guidance for Spine Inj IMPRESSION: Intraoperative imaging provided for caudal block. Electronically Signed: Deniz Cabrera, at 14:10 EDT , Service support ,
[2018-10-28] MEDS: Bupivacaine 0.25% 30 ML Vial (10:58)
[2018-10-28] MEDS: MethylPREDNISolone Acetate 80 MG/ML Vial (10:58)
--- NOTE | 2018-10-28 17:33 | PCM.OPRPT ---
Problem List (1) Radiculopathy of lumbosacral region Status: Chronic Report of Operation Date of Procedure: 10/28/18 Pre-Operative Diagnosis: Lumbosacral radiculopathy Post-Operative Diagnosis: Lumbosacral radiculopathy Surgery/Procedure Performed:: Caudal epidural steroid injection Description of Surgical Findings:: PROCEDURE: Caudal epidural steroid injection PREOPERATIVE DIAGNOSIS: Lumbosacral radiculopathy POSTOPERATIVE DIAGNOSIS: Lumbosacral radiculopathy ANESTHESIA: MAC COMPLICATIONS: None BLOOD LOSS: Minimal PROCEDURE IN DETAIL: History and physical today was reviewed. Risks and benefits of the procedure were explained. The patient understood, agreed to our procedure, and informed consent was obtained. IV inserted per routine protocol. The patient was taken to the operating room, placed in a prone position with a pillow positioned underneath the abdomen. The lower back area was prepped and draped in a sterile fashion using iodine x3 under fluoroscopy guidance on the lateral view the caudal space was identified the skin and subcutaneous tissue and size approximately 3 cc of 1% lidocaine using a 25-gauge regular needle under direct visualization fluoroscopy using a 22-gauge 3-1/2 inch spinal needle the needle was advanced via the skin through the sacral hiatus tip of the needle passed through the sacrococcygeal ligament advanced approximately S4 area after negative aspiration for blood or CSF a total of 3 cc of contrast were injected to confirm correct placement of the needle as well as cephalad spread the spread was followed to approximately L5 area after negative aspiration for blood or CSF and confirmation AP as well as lateral view a total of 15 cc of preservative-free 0.125% Marcaine with 80 mg of Depo-Medrol were injected easily. The needles were then removed intact. The patient experienced no signs or symptoms intrathecal, intravascular injection. The patient experienced no paraesthesia. The procedure was completed without any apparent difficult, any complication. The patient appeared to tolerate well. ASSESSMENT AND PLAN: This is a 27-year-old male with lumbosacral radiculopathy status post diagnostic/therapeutic caudal epidural steroid injection. The patient will continue his current medications. The patient will follow in approximately 2 weeks for possible repeat of the procedure if indicated.
== END 2018-10-28 11:57 | disposition home or self-care (01) ==
LOC: SDC 10:04 → AC 10:05
PROVIDERS: Family Provider Family Medicine; PCP Family Medicine; Referring Provider Anesthesiology Pain Medicine; Visit Provider Anesthesiology Pain Medicine
PROC: 3E0S3BZ Introduction of Anesthetic Agent into Epidural Space, Percutaneous Approach (ICD-10-PCS; CPT 62282; principal; 2018-10-28 10:45)
DX: M54.17 Radiculopathy, lumbosacral region (principal); G37.3 Acute transverse myelitis in demyelinating disease of central nervous system; G89.0 Central pain syndrome; G82.20 Paraplegia, unspecified; E55.9 Vitamin D deficiency, unspecified; F41.9 Anxiety disorder, unspecified; F32.9 Major depressive disorder, single episode, unspecified; F17.210 Nicotine dependence, cigarettes, uncomplicated; Z87.440 Personal history of urinary (tract) infections; Z79.899 Other long term (current) drug therapy; Z79.891 Long term (current) use of opiate analgesic
CPT/HCPCS: 62323; 64520; 64483; 77003; J7120; J3490

== ENCOUNTER 2018-11-22 21:52 | Emergency (ER) | payer MEDICAID, SELFPAY ==
[2018-10-28 10:44] VITALS: BMI 43.0
[2018-11-22 21:53] VITALS: BP 152/87; PULSE 68; RESP 15; TEMP 36.8; O2SAT 97; BMI 19.5
--- NOTE | 2018-11-22 22:28 | ED.VIS.GEN ---
History of Present Illness Chief Complaint: Other, Pain/Inj Narrative: Patient presenting due to concern for an infected decubitus ulcer. Patient has an underlying history of paraplegia. He had a history of having very severe wounds on his buttocks bilaterally, which actually through vigorous wound care were significantly improved. Patient states that over the course of the last week or so however he is noticed increased pain and some drainage from the wound on his right buttock. Patient reports that he has been having some subjective chills, but no measurable fevers. Patient has an appointment with wound care coming up on December 02. Review of systems otherwise negative. Past Medical History - Allergies and Home Meds Allergies/Adverse Reactions: Allergies adhesive tape Allergy (Verified 11/22/18 21:59) Rash aspirin Allergy (Verified 11/22/18 21:59) Unknown NSAIDS (Non-Steroidal Anti-Inflamma Allergy (Verified 11/22/18 21:59) Hives GREEN DYE Allergy (Uncoded 10/22/18 18:51) Unknown Primary Care Physician: Quinten Doan DO [Primary Care Provider] - Past Medical History: - - Paraplegia Surgical History: - - Tympanostomy tubes. PEG tube. colostomy (permanent). excision right ischial pressure sore, Stage IV, with partial ostectomy for osteomyelitis and excision left ischial pressure sore, Stage IV, with partial ostectomy for osteomyelitis - 02/10/16. Smoking Status: Current every day smoker - Family History Paternal Family History: Reports: No pertinent history Maternal Family History: Reports: No pertinent history Review of Systems All systems negative except as indicated General: Reports: Chills. Denies: Fever Skin: Reports: Wounds Physical Exam Vital Signs/Narrative: Vital Signs Temp Pulse Resp BP Pulse Ox 11/22/18 21:53 98.2 F 68 15 152/87 H 97 Inital Vital Signs reviewed: Yes General: Cachectic, No Acute Distress Head: Normocephalic Eyes: Perrl, EOMI ENT: Moist mucous membranes Neck: Supple Cardiovascular: Regular rate, Regular rhythm Respiratory: No distress Abdomen: Soft, Nontender - ostomy present Rectal: - - Chaperoned external exam shows the patient to have well-healed decubitus wound on the left buttock, the right buttock shows a well-healed wound, but has a small 2 mm open area that is draining serosanguineous fluid and is tender. Neurological: Alert, Oriented x3 Diagnostic/Tx/Re-eval - Medical Decision Making Patient presented due to potential infected decubitus wound. There is a small amount of discharge, no real fluctuance or induration. Patient has stable vital signs no evidence of constitutional symptoms or sepsis. Patient will be treated at this point with a course of Bactrim and I will give him a course of pain medication. Patient states that when he gets pain medication he requires nausea medicine will also be sent home with Zofran. Patient is instructed to keep his follow-up appointment with wound care, and to return for worsening symptoms. ED Disposition - Plan for ED Patient: Disposition: Home or Assisted Living Diagnosis: Decubitus ulcer Instructions: Decubitus Ulcer Prescriptions: Smz/Tmp Ds [Bactrim Ds] 1 tab PO BID #14 tab Prescription Printed Oxycodone HCl/Acetaminophen [Percocet 5/325] 1 tab PO Q6H PRN PRN 5 Days #20 tab PRN Reason: Pain Prescription Printed Ondansetron [Zofran Odt] 4 mg PO Q8H PRN PRN #10 tab PRN Reason: Nausea Prescription Printed Referrals: Quinten Doan DO [Primary Care Provider] - Additional Instructions: Followup with wound care
[2018-11-22] MEDS: Ondansetron ODT 4 MG Tablet PO (22:35)
[2018-11-22] MEDS: oxyCODONE 5 MG Tablet 10 MG PO (22:35)
[2018-11-22] MEDS: Smz/Tmp Ds Tablet 1 TABLET PO (22:35)
== END 2018-11-22 23:21 | disposition home or self-care (01) ==
LOC: ED 22:39
PROVIDERS: Emergency Provider Emergency Medicine; Family Provider Family Medicine; PCP Family Medicine
DX: L89.319 Pressure ulcer of right buttock, unspecified stage (principal); G82.20 Paraplegia, unspecified; F17.200 Nicotine dependence, unspecified, uncomplicated
CPT/HCPCS: 87070; 87077; 87186; 87205; 99284

== ENCOUNTER 2018-11-28 15:36 | Emergency (ER) | payer MEDICAID, SELFPAY ==
[2018-11-28 15:37] VITALS: BP 98/59; PULSE 71; PULSE 86; RESP 18; RESP 19; TEMP 36.7; O2SAT 97; BMI 17.2
--- NOTE | 2018-11-28 15:50 | CT_ITS ---
We are attempting to reach an attending provider to discuss findings. An addendum with communication details will be sent when the communication is complete. STUDY: CT ABDOMEN AND PELVIS WITH CONTRAST REASON FOR EXAM: Male, 28 years old. Lower abdominal pain with nausea and vomiting RADIATION DOSAGE (If Supplied By Facility): CTDIvol = ( 7.62 ) mGy, DLP = ( 271.19 ) mGycm TECHNIQUE: Transaxial images were obtained from the dome of the diaphragm to the symphysis pubis without oral contrast. 100CC IV/Oral Isovue 300 was administered. Sagittal and coronal images were reconstructed. Individualized dose optimization techniques were used for this CT. COMPARISON: September 11, 2018 FINDINGS: The visualized lung bases are unremarkable. The visualized portions of the heart are within normal limits. Normal liver. Mildly contracted thick-walled gallbladder without calcified stones most likely physiologic however if concern for gallbladder disease ultrasound recommended. Normal spleen. Normal pancreas. Normal bilateral adrenal glands. Normal right kidney. Normal left kidney. Normal visualized stomach. Normal small intestine. Diffuse fecal retention is seen throughout the colon. Postsurgical changes status post resection of the descending colon and creation of colostomy. The appendix is visualized and appears normal. Incidental finding of diffuse thickening of the soft tissues at the anorectal junction and within the subcutaneous fat posteriorly consistent with nonspecific inflammatory changes.. Normal abdominal aorta. Normal inferior vena cava. Normal retroperitoneum. Nonspecific thickening of the bladder wall of uncertain etiology but may be consistent with cystitis. . There is also extensive soft tissue thickening with air bubbles the right gluteal region adjacent to the ischial tuberosity possibly representing evolving abscess. There is no definitive evidence for acute osteomyelitis however this may be further assessed with MRI if clinically indicated. CT/Abdomen/Pelvis WITH Contrast IMPRESSION: Diffuse fecal retention in the colon. Postop changes involving the descending colon with creation of colostomy. No evidence for small bowel obstruction. Nonspecific thickening of the soft tissues at the anorectal junction in association with phlegmonous changes in the right gluteal region with air bubbles possibly representing evolving abscess contiguous with the ischial tuberosity but no definitive evidence for acute osteomyelitis Electronically Signed: Paras Dalton MD at 18:33 EDT , Service support ,
--- NOTE | 2018-11-28 15:52 | ED.VIS.GEN ---
History of Present Illness Chief Complaint: Abd Pain Informant: Patient Onset: Weeks - 2 Narrative: Patient presents worsening lower abdominal pain over 2 days. Is been having intermittent symptoms for 2 weeks. Nausea and vomiting in the mornings. History of diverting colostomy 2 years ago due to pressure ulcers 2 years ago. 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 States had kidney infection causing this. He denies any fever, chills, sweats. He does not straight cath, he wears depends. States he normally empties his colostomy daily which before, has decreased over last couple days, however decreased oral intake due to nausea. Patient reports wheelchair-bound, comes from home, care from his stepmother. Prior similar symptoms: No Past Medical History - Allergies and Home Meds Allergies/Adverse Reactions: Allergies adhesive tape Allergy (Verified 11/28/18 15:37) Rash aspirin Allergy (Verified 11/28/18 15:37) Unknown NSAIDS (Non-Steroidal Anti-Inflamma Allergy (Verified 11/28/18 15:37) Hives GREEN DYE Allergy (Uncoded 10/22/18 18:51) Unknown Primary Care Physician: Quinten Doan DO [Primary Care Provider] - Surgical History: - - Tympanostomy tubes. PEG tube. colostomy (permanent). excision right ischial pressure sore, Stage IV, with partial ostectomy for osteomyelitis and excision left ischial pressure sore, Stage IV, with partial ostectomy for osteomyelitis - 02/10/16. Smoking Status: Current every day smoker - Family History Paternal Family History: Reports: No pertinent history Maternal Family History: Reports: No pertinent history Review of Systems All systems negative except as indicated General: Denies: Chills, Fever, Sweats Eyes: Denies: Visual changes - bilaterally, Diplopia ENT: Denies: Rhinorrhea, Sore throat Cardiovascular: Denies: Chest pain, Palpitations Respiratory: Denies: Dyspnea, Cough, Dyspnea on exertion Gastrointestinal: Reports: Abdominal pain, Nausea. Denies: Vomiting, Diarrhea, Melena, Hematochezia Genitourinary: Denies: Dysuria, Hematuria, Frequency Musculoskeletal: Denies: Back pain, Extremity Pain Skin: Denies: Rash, Wounds Neurological: Denies: Headache, Weakness, Numbness Physical Exam Vital Signs/Narrative: Vital Signs Temp Pulse Resp BP Pulse Ox 11/28/18 15:37 98.1 F 71 18 98/59 L 97 Inital Vital Signs reviewed: Yes General: Cachectic, No Acute Distress Head: Normocephalic, Atraumatic Eyes: Perrl, EOMI ENT: No rhinorrhea, - - Mild dry mucosa membranes. Neck: Supple, Nontender Cardiovascular: Regular rate, Regular rhythm, No murmurs Respiratory: No distress, CTA bilaterally, Chest nontender Abdomen: Soft, Nondistended, Normal bowel sounds, - - Mild tenderness lower quadrants without guarding or rebound. Colostomy, clean, dry, intact, currently empty. Previous PEG tube scar. Back: Nontender, Normal Inspection Extremities: Nontender, No edema, - - cachetic, slight contracture lower extremities and upper extremities. 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 Neurological: Alert, Oriented x3, Cranial nerves II-XII grossly intact Psychological: Normal affect, Normal Mood Diagnostic/Tx/Re-eval Abnormal Lab Results 11/28/18 11/28/18 16:00 16:00 WBC 5.5 RBC 4.97 Hgb 15.3 Hct 46.2 MCV 93.0 MCH 30.8 MCHC 33.1 RDW Std Deviation 44.3 H RDW Coeff of Joaquín 13.0 Plt Count 226 MPV 10.6 Immature Gran % (Auto) 0.400 Neut % (Auto) 64.0 Lymph % (Auto) 24.5 [place] % (Auto) 9.1 Eos % (Auto) 1.5 Baso % (Auto) 0.5 Absolute Neuts (auto) 3.5 Absolute Lymphs (auto) 1.34 Nucleated RBC % 0 Sodium 140 Potassium 3.9 Chloride 105 Carbon Dioxide 26.0 Anion Gap 9 BUN 9 Creatinine 0.64 L Estim Creat Clear Calc 132.71 Est GFR (MDRD) Af Amer 192 Est GFR (MDRD) Non-Af 159 BUN/Creatinine Ratio 14.1 Glucose 87 Calcium 9.2 Total Bilirubin 0.30 AST 14 L ALT 15 L Alkaline Phosphatase 86 Total Protein 8.2 Albumin 3.4 Globulin 4.8 H Albumin/Globulin Ratio 0.7 L Lipase 75 Clinical Impression(s) from Imaging Studies Abdomen/Pelvis CT 11/28/18 15:50 IMPRESSION: Diffuse fecal retention in the colon. Postop changes involving the descending colon with creation of colostomy. No evidence for small bowel obstruction. Nonspecific thickening of the soft tissues at the anorectal junction in association with phlegmonous changes in the right gluteal region with air bubbles possibly representing evolving abscess contiguous with the ischial tuberosity but no definitive evidence for acute osteomyelitis Electronically Signed: Paras Dalton MD at 18:33 EDT , Service support , ADDENDUM: 11/28/18 1854 IMPRESSION: Diffuse fecal retention in the colon. Postop changes involving the descending colon with creation of colostomy. No evidence for small bowel obstruction. Nonspecific thickening of the soft tissues at the anorectal junction in association with phlegmonous changes in the right gluteal region with air bubbles possibly representing evolving abscess contiguous with the ischial tuberosity but no definitive evidence for acute osteomyelitis N.B. : The above information has been verbally conveyed by Paras Dalton MD to Wander Soot MD, on 11/28/2018 18:47:41 (ET). Electronically Signed: Paras Dalton MD at 18:33 EDT , Service support , - Medical Decision Making Patient with nonsurgical abdomen, however he did have some tenderness lower quadrants, normal bowel sounds. With his medical history to check abdominal labs are normal with a normal white count. Contrast CT obtained notes normal appendix, also reported by radiology concerns for possible evolving abscess right gluteal region with his ulcer history. He was treated for his pain and nausea in the ED. Pain is controlled. He has no fever and normal white count. Re-discussion with his initial abscess, he reports to me that it opened up and drained pus a week ago. Therefore likely draining abscess at this time. There is normal white count, states he seen wound care in the past. Nursing will place dressing for pressure ulcer, he started on Keflex and Bactrim, short course of Percocet and antiemetics. He will follow-up with wound care. Strict instructions discussed to return if any worsening symptoms with developing fever. All questions were answered. ED Disposition - Plan for ED Patient: Disposition: Home or Assisted Living Diagnosis: Abscess, gluteal, right, Abdominal pain Instructions: ABSCESS, Antiobiotic Treatment Only Prescriptions: Smz/Tmp Ds [Bactrim Ds] 1 tab PO BID #20 tab Prescription Printed Cephalexin [Keflex] 500 mg PO Q6 #40 cap Prescription Printed Oxycodone HCl/Acetaminophen [Percocet 5/325] 1 tab PO Q6H PRN PRN 3 Days #12 tab PRN Reason: Pain Prescription Printed Ondansetron [Zofran Odt] 4 mg PO Q8H PRN PRN #10 tab PRN Reason: Nausea Prescription Printed Referrals: Quinten Doan DO [Primary Care Provider] - Additional Instructions: Finish your Bactrim, take Keflex as prescribed. Follow-up with wound center.
[2018-11-28] MEDS: 0.9% Normal Saline 1,000 ML 1000 ML IV (16:05)
[2018-11-28] MEDS: fentaNYL 100 MCG/2 ML Ampul 50 MCG IV (16:05)
[2018-11-28] MEDS: Ondansetron 4 MG/2 ML Vial IV ×2 (16:06→17:52)
[2018-11-28 16:16] LABS: Absolute Lymphocyte Count 1.34 X10^3/uL (0.83-4.51); Absolute Neutrophil Count 3.5 X10^3/uL (2.0-7.7); Basophil# 0.03 X10^3/uL; Basophil% 0.5 % (0-1); Eosinophil# 0.08 X10^3/uL; Eosinophils% 1.5 % (0-5); Hematocrit 46.2 % (40-54); Hemoglobin 15.3 g/dL (13.0-16.5); Lymphocyte # 1.34 X10^3/ul (4.0); Lymphocyte % 24.5 % (19-41); Mean Corp Hgb Conc 33.1 g/dL (32-36); Mean Corpuscular Hgb 30.8 pg (27.0-32.0); Mean Platelet Vol. 10.6 fl (6.2-12.0); Monocyte% 9.1 % (0-10); NRBC Flagged by Analyzer 0 % (0-5); Neutrophil # 3.51 X10^3/uL (2.7-7.7); Platelet Count 226 K/mm3 (150-450); RBC Distribution Width SD 44.3 fl (35.1-43.9); Red Blood Count 4.97 M/mm3 (4.6-6.2); White Blood Count 5.5 K/mm3 (4.4-11.0)
[2018-11-28 16:30] LABS: Albumin, Serum 3.4 g/dL (3.2-5.0); BUN 9 mg/dL (7-18); BUN/Creat Ratio 14.1 RATIO (10-20); Creatinine, Serum 0.64 mg/dL (0.70-1.30); EST Glomerular Filtration Rate 159 mL/min (>60); Est Glom Filt Rate - Afr Amer 192 mL/min (>60); Estimated Creatinine Clearance 132.71 ml/min; Glucose 87 mg/dL (74-106); Protein, Total 8.2 g/dL (6.4-8.2)
[2018-11-28 16:31] LABS: ALB/GLOB Ratio 0.7 RATIO (0.9-2.4); AST(SGOT) 14 U/L (15-37); Alanine Aminotransfer ALT/SGPT 15 U/L (16-61); Alkaline Phosphatase 86 U/L (45-117); Anion Gap 9 (5-15); Calcium,Total 9.2 mg/dL (8.5-10.1); Chloride 105 mmol/L (98-107); Globulin 4.8 g/dL (2.2-4.2); Lipase 75 U/L (73-393); Potassium 3.9 mmol/L (3.5-5.1); Sodium Level 140 mmol/L (136-145)
[2018-11-28 17:51] VITALS: BP 103/69; PULSE 71; RESP 16; O2SAT 97
[2018-11-28 19:53] VITALS: BP 123/85
--- NOTE | 2018-11-28 19:55 | ED.RN ---
PT WITH DIME SIZE WOUND ON LEFT BUTT CHEEK. PT WITH HX OF SACRAL WOUNDS. PT CLEANED WITH BATH WIPES AND PLACED MEPILEX DRESSING ON BOTTOM. PT TO FOLLOW UP WITH WOUND CENTER PER DR. MANUEL.
[2018-11-28] MEDS: Cephalexin 250 MG Capsule 500 MG PO (20:13)
[2018-11-28] MEDS: oxyCODONE 5 MG Tablet PO (20:13)
[2018-11-28] MEDS: Smz/Tmp Ds Tablet 1 TABLET PO (20:13)
== END 2018-11-28 20:36 | disposition home or self-care (01) ==
PROVIDERS: Emergency Provider Emergency Medicine; Family Provider Family Medicine; PCP Family Medicine
DX: L02.31 Cutaneous abscess of buttock (principal); R10.30 Lower abdominal pain, unspecified; L89.303 Pressure ulcer of unspecified buttock, stage 3; G37.3 Acute transverse myelitis in demyelinating disease of central nervous system; F17.200 Nicotine dependence, unspecified, uncomplicated; Z99.3 Dependence on wheelchair; Z93.3 Colostomy status
CPT/HCPCS: 74177; 80053; 83690; 85025; 96361; 96374; 96375; 96376; 99285; J7030; Q9967; A4216; J2405

== ENCOUNTER 2018-12-21 11:28 | Emergency (ER) | payer MEDICAID, SELFPAY ==
[2018-12-21 11:28] VITALS: BP 138/117; PULSE 82; RESP 16; TEMP 36.7; O2SAT 100; BMI 16.7
--- NOTE | 2018-12-21 11:53 | RAD_ITS ---
STUDY: X-RAY - PELVIS AND LEFT HIP REASON FOR EXAM: Male, 28 years old. Fall. Pain. TECHNIQUE: 3 views of the pelvis and left hip. COMPARISON: CT dated 10/13/2016 FINDINGS: There is a non-specific bowel gas pattern. Normal visualized soft tissue structures. Normal bilateral iliac wings, sacroiliac joints and visualized sacrum. Normal bilateral superior and inferior pubic rami. Normal pubic symphysis. Normal bilateral ischial tuberosities. Normal visualized femoral head. Normal acetabulum. Normal hip joint. RAD/HIP, UNI W/ Pelvis 2-3 Views IMPRESSION: Normal x-ray examination of the pelvis and left hip. Electronically Signed: Frank Brizuela, at 12:45 EDT Tel , Service support ,
--- NOTE | 2018-12-21 11:53 | RAD_ITS ---
STUDY: X-RAY - LUMBAR SPINE REASON FOR EXAM: Male, 28 years old. Fall. Pain. TECHNIQUE: 5 view(s) of the lumbar spine were obtained. COMPARISON: 09/28/2017. FINDINGS: There is no evidence of fracture or dislocation in the lumbar spine. The vertebral body heights and disc spaces are well-maintained. There are no significant degenerative changes. RAD/L/S Spine Min 4 Views IMPRESSION: No fracture or dislocation in the lumbar spine. Electronically Signed: Frank Brizuela, at 12:46 EDT Tel , Service support ,
--- NOTE | 2018-12-21 11:53 | RAD_ITS ---
STUDY: X-RAY - SACRUM/COCCYX REASON FOR EXAM: Male, 28 years old. Fall TECHNIQUE: 3 view(s) of the sacrum and coccyx were obtained. COMPARISON: None. FINDINGS: Evaluation is limited by overlying stool. There is no sacral or coccygeal fracture identified. The sacroiliac joints are symmetric. The presacral soft tissue structures are unremarkable. RAD/Sacrum-Coccyx min 2 Views IMPRESSION: Evaluation limited by overlying stool. No fracture identified. Electronically Signed: Frank Brizuela, at 12:50 EDT Tel , Service support ,
--- NOTE | 2018-12-21 11:55 | ED.VIS.GEN ---
History of Present Illness <JoaquínRakesh - Last Filed: 12/21/18 13:23> Informant: Patient, Family Onset: Days Narrative: Patient is paraplegic and presents to the ED with lumbar pain and left hip pain. 3 days ago, he was in his friend's van when he accidentally fell out and landed onto his back. He denies hitting his head or LOC. He states the pain is progressively gotten worse over the last several days. He feels like his left hip has popped out of place. He has been taking [id number] analgesics without relief. <Charley Stanton - Last Filed: 12/21/18 13:44> Chief Complaint: Back Past Medical History <Rakesh Yanes - Last Filed: 12/21/18 13:23> Surgical History: - - Tympanostomy tubes. PEG tube. colostomy (permanent). excision right ischial pressure sore, Stage IV, with partial ostectomy for osteomyelitis and excision left ischial pressure sore, Stage IV, with partial ostectomy for osteomyelitis - 02/10/16. Smoking Status: Current every day smoker - Family History Paternal Family History: Reports: No pertinent history Maternal Family History: Reports: No pertinent history <Charley Stanton - Last Filed: 12/21/18 13:44> - Allergies and Home Meds Allergies/Adverse Reactions: Allergies adhesive tape Allergy (Verified 12/21/18 11:32) Rash aspirin Allergy (Verified 12/21/18 11:32) Unknown NSAIDS (Non-Steroidal Anti-Inflamma Allergy (Verified 12/21/18 11:32) Hives GREEN DYE Allergy (Uncoded 12/21/18 11:32) Unknown Primary Care Physician: Quinten Doan DO [Primary Care Provider] - 1 Week if not improving Review of Systems General: Denies: Chills, Fever, Sweats Eyes: Denies: Visual changes - bilaterally, Diplopia ENT: Denies: Rhinorrhea, Sore throat Cardiovascular: Denies: Chest pain, Palpitations Respiratory: Denies: Dyspnea, Cough, Dyspnea on exertion Gastrointestinal: Denies: Abdominal pain, Nausea, Vomiting, Diarrhea, Melena, Hematochezia Genitourinary: Denies: Dysuria, Hematuria, Frequency Musculoskeletal: Reports: Arthralgias, Back pain. Denies: Extremity Pain Skin: Denies: Rash, Wounds Neurological: Denies: Headache, Weakness, Numbness <Charley Stanton - Last Filed: 12/21/18 13:44> Physical Exam Vital Signs/Narrative: Vital Signs Temp Pulse Resp BP Pulse Ox 12/21/18 11:28 98.0 F 82 16 138/117 H 100 <Rakesh Yanes - Last Filed: 12/21/18 13:23> Vital Signs/Narrative: Vital Signs Temp Pulse Resp BP Pulse Ox 12/21/18 11:28 98.0 F 82 16 138/117 H 100 General: Cachectic, No Acute Distress Head: Normocephalic, Atraumatic Eyes: Perrl, EOMI ENT: Moist mucous membranes, No rhinorrhea Neck: Supple, Nontender Cardiovascular: Regular rate, Regular rhythm, No murmurs Respiratory: No distress, CTA bilaterally, Chest nontender Abdomen: Soft, Nontender, Nondistended, Normal bowel sounds Back: Normal Inspection, Spinal tenderness - Tenderness to palpation of her lumbar spinous processes. No palpable step-offs. Extremities: No edema, - - There is to palpation over left hip. Full passive range of motion. No palpable deformity. Negative logroll. Skin: Normal color, No rash Neurological: Alert, Oriented x3, Cranial nerves II-XII grossly intact, Normal Strength, Normal Sensation Psychological: Normal affect, Normal Mood <Charley Stanton - Last Filed: 12/21/18 13:44> Diagnostic/Tx/Re-eval Clinical Impression(s) from Imaging Studies Hip/Pelvis X-Ray 12/21/18 11:53 IMPRESSION: Normal x-ray examination of the pelvis and left hip. Electronically Signed: Frank Brizuela, at 12:45 EDT Tel , Service support , Lumbar Spine X-Ray 12/21/18 11:53 IMPRESSION: No fracture or dislocation in the lumbar spine. Electronically Signed: Frank Brizuela, at 12:46 EDT Tel , Service support , Sacrum and Coccyx X-Ray 12/21/18 11:53 IMPRESSION: Evaluation limited by overlying stool. No fracture identified. Electronically Signed: Frank Brizuela, at 12:50 EDT Tel , Service support , - Medical Decision Making Seen and evaluated independently and in conjunction with physician assistant to the vice president. Agree with notes above unless documented otherwise. Patient states that yesterday when his leg the wrong way, it increased his chronic back pain that he has associated with his transverse myelitis. We reviewed his oars report. He has had 4 prescriptions for oxycodone-containing medications in the past 5 weeks. They are from 4 different prescribers, at least 2 of which are emergency providers. As I advised him, I am not comfortable prescribing him controlled substances, but since the [place] he received he did not help, we will give him an injection of morphine to help with his pain today. He and family understand and are comfortable with the overall plan of supportive care and follow-up as needed. <Rakesh Yanes - Last Filed: 12/21/18 13:23> - Medical Decision Making Patient presents to the ED with low back injury. He was given a [place] initially for analgesia. Images of lumbar, left hip, and coccyx show no acute abnormalities. At this time, I think it is safe for the patient be discharged home. He was given IM morphine prior to discharge. Given the patient's oarrs report I do not feel prescription for narcotic medications are warranted. Patient will continue isqk-kcs-ryafjks analgesics and will follow up with his PCP. Educated on signs/symptoms to return to the ED. He is provided discharge instructions and agreeable to plan. Impression: Acute exacerbation of chronic low back pain. Lumbar contusion. Functional paraplegia. Disposition: Home stable <Charley Stanton - Last Filed: 12/21/18 13:44> ED Disposition <Rakesh Yanes - Last Filed: 12/21/18 13:23> <Charley Stanton - Last Filed: 12/21/18 13:44> - Plan for ED Patient: Disposition: Home or Assisted Living Diagnosis: Back contusion, Acute exacerbation of chronic low back pain, Functional quadriplegia Instructions: BACK PAIN (Acute or Chronic) Referrals: Quinten Doan, DO [Primary Care Provider] - 1 Week if not improving
[2018-12-21] MEDS: HYDROcodone Bitartrate/Apap 5/325 Tablet PO (12:03)
[2018-12-21] MEDS: Morphine 4 MG/ML Syringe IM (13:37)
[2018-12-21] MEDS: Ondansetron 8 MG Tablet 4 MG PO (14:02)
[2018-12-21 14:03] VITALS: BP 116/65; PULSE 72; RESP 15; O2SAT 97
== END 2018-12-21 14:05 | disposition home or self-care (01) ==
PROVIDERS: Emergency Provider Physician Assistant; Family Provider Family Medicine; PCP Family Medicine
DX: S30.0XXA Contusion of lower back and pelvis, initial encounter (principal); M54.5 Low back pain; G89.29 Other chronic pain; F44.4 Conversion disorder with motor symptom or deficit; G37.3 Acute transverse myelitis in demyelinating disease of central nervous system; F17.200 Nicotine dependence, unspecified, uncomplicated; W18.30XA Fall on same level, unspecified, initial encounter; Y93.89 Activity, other specified; Y92.009 Unspecified place in unspecified non-institutional (private) residence as the place of occurrence of the external cause; Y99.8 Other external cause status
CPT/HCPCS: 72110; 72220; 73502; 96372; 99285

== ENCOUNTER 2018-12-27 03:12 | Emergency (ER) | payer MEDICAID, SELFPAY ==
[2018-12-27 03:13] VITALS: PULSE 79; RESP 18; TEMP 36.9; O2SAT 98; BMI 17.4
[2018-12-27 03:17] VITALS: BP 116/84
--- NOTE | 2018-12-27 03:24 | RAD_ITS ---
HISTORY: FALL/LOW BACK PAIN/ BEST POSSIBLE IMAGES DUE TO PATIENT'S PARALYSIS COMPARISON: December 21, 2018 FINDINGS: # of images incl. paperwork: 3 XR Spine Lumbar 2 or 3 Views: Gentle levoscoliosis is mild and unchanged. Lumbar vertebral bodies are normal in height. Lumbar disc spaces are well maintained. No acute lumbar spine fracture or subluxation. Mild constipation adjacent to the patient's ostomy RAD/Lumbar Spine 2 or 3 Views IMPRESSION: No acute lumbar spine fracture or subluxation. at 4514 Reported and signed by: Nahid hTomas MD Electronically Signed: Nahid Thomas MD at 4:22 EDT Tel , Service support ,
--- NOTE | 2018-12-27 03:24 | RAD_ITS ---
HISTORY: Fall. Right hip pain. Patient paralyzed. Exam is an AP pelvis, and 2 views of the right hip. Comparison images are from December 21, 2018 Findings: Both femoral heads are seated within their respective acetabulum. Sacroiliac joints may be partially fused on the left. An abnormal increased stool burden is mild. The left-sided colostomy remains. Levoscoliosis is minimal. Gas is present within the soft tissues inferior to the right ischial tuberosity. The right ischial tuberosity is sclerotic with enthesophytes compared to the left RAD/HIP, UNI W/ Pelvis 2-3 Views IMPRESSION: No evidence of right hip dislocation or fracture. Gas is present within the deep tissues around the right ischial tuberosity. The right ischial tuberosity is slightly sclerotic. This suggests a right ischial ulcer with chronic osteomyelitis. There is a lesser possibility that this is due to a right inguinal hernia. at 0420 Reported and signed by: Nahid Thomas MD Electronically Signed: Nahid Thomas MD at 4:19 EDT Tel , Service support ,
--- NOTE | 2018-12-27 03:24 | RAD_ITS ---
HISTORY: FALL/ RIGHT KNEE PAIN/BEST POSSIBLE IMAGES DUE TO PATIENT'S PARALYSIS EXAM: Right Knee COMPARISON: None FINDINGS: # of images incl. paperwork: 3 Joint spaces are narrowed. Bone mineral density is diminished. No osteophytes are present. No effusion is perceived RAD/Knee 4 or More Views IMPRESSION: Mild joint space loss. Decreased bone mineral density with atrophic muscles just of disuse atrophy and osteoporosis. No acute fracture perceived at 0422 Reported and signed by: Nahid Thomas MD Electronically Signed: Nahid Thomas MD at 4:21 EDT Tel , Service support ,
--- NOTE | 2018-12-27 03:25 | ED.DCSUM_ITS ---
History of Present Illness Chief Complaint: Fall Narrative: This patient is a 28-year-old male who presents after a fall. 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 He was putting a pillow between his legs to prevent pressure ulcers. He had a leg spasm which caused him to twist and he fell and became caught between his wheelchair in the bed. He states that his lower body was twisted around from his upper half. He complains of lower back pain right hip pain and right knee pain. No head injury or loss of consciousness. He was not in this position for any prolonged amount of time and the fall occurred just before presentation here to the emergency department. He otherwise denies any recent illness such as fevers or vomiting. Past Medical History - Allergies and Home Meds Allergies/Adverse Reactions: Allergies adhesive tape Allergy (Verified 12/21/18 11:32) Rash aspirin Allergy (Verified 12/21/18 11:32) Unknown NSAIDS (Non-Steroidal Anti-Inflamma Allergy (Verified 12/21/18 11:32) Hives GREEN DYE Allergy (Uncoded 12/21/18 11:32) Unknown Primary Care Physician: Quinten Doan DO [Primary Care Provider] - Past Medical History: - - Paraplegia Surgical History: - - Tympanostomy tubes. PEG tube. colostomy (permanent). excision right ischial pressure sore, Stage IV, with partial ostectomy for osteomyelitis and excision left ischial pressure sore, Stage IV, with partial ostectomy for osteomyelitis - 02/10/16. Smoking Status: Current every day smoker - Family History Paternal Family History: Reports: No pertinent history Maternal Family History: Reports: No pertinent history Review of Systems All systems negative except as indicated General: Denies: Fever Cardiovascular: Denies: Chest pain Respiratory: Denies: Dyspnea Gastrointestinal: Denies: Nausea, Vomiting Musculoskeletal: Reports: Back pain, Extremity Pain Physical Exam Vital Signs/Narrative: Vital Signs Temp Pulse Resp BP Pulse Ox 12/27/18 03:17 116/84 H 12/27/18 03:13 98.4 F 79 18 98 Inital Vital Signs reviewed: Yes General: No Acute Distress Eyes: Perrl, EOMI ENT: Moist mucous membranes Neck: Supple Cardiovascular: Regular rate Respiratory: No distress Abdomen: Soft, Nontender, Nondistended Extremities: - - Patient has pain with range of motion of the right hip and right knee but no obvious deformity or soft tissue swelling no appreciable knee effusion he has brisk capillary refill distally Skin: Normal color Neurological: Alert Psychological: Tearful Diagnostic/Tx/Re-eval Impressions Hip/Pelvis X-Ray 12/27/18 03:24 IMPRESSION: No evidence of right hip dislocation or fracture. Gas is present within the deep tissues around the right ischial tuberosity. The right ischial tuberosity is slightly sclerotic. This suggests a right ischial ulcer with chronic osteomyelitis. There is a lesser possibility that this is due to a right inguinal hernia. at 0420 Reported and signed by: Nahid Thomas MD Electronically Signed: Nahid Thomas MD at 4:19 EDT Tel , Service support , Knee X-Ray 12/27/18 03:24 IMPRESSION: Mild joint space loss. Decreased bone mineral density with atrophic muscles just of disuse atrophy and osteoporosis. No acute fracture perceived at 0422 Reported and signed by: Nahid Thomas MD Electronically Signed: Nahid Thomas MD at 4:21 EDT Tel , Service support , Lumbar Spine X-Ray 12/27/18 03:24 IMPRESSION: No acute lumbar spine fracture or subluxation. at 0424 Reported and signed by: Nahid Thomas MD Electronically Signed: Nahid Thomas MD at 4:22 EDT Tel , Service support , 12/27/18 03:24 HIP, UNI W/ Pelvis 2-3 Views [RAD] Stat Knee 4 or More Views [RAD] Stat Lumbar Spine 2 or 3 Views [RAD] Stat - Medical Decision Making Patient was given a [place] here for pain. X-rays as above unremarkable for acute process acute fracture dislocation. There is possible chronic osteomyelitis of the right ischium. Patient does have a chronic wound on the right buttock. He was advised to contact wound care and his primary care physician for follow-up as soon as possible. ED Disposition - Plan for ED Patient: Disposition: Home or Assisted Living Diagnosis: Fall Instructions: FALL, Mechanical Referrals: Quinten Doan DO [Primary Care Provider] - Clinic,Wound [None] -
[2018-12-27] MEDS: HYDROcodone Bitartrate/Apap 5/325 Tablet PO (04:03)
--- NOTE | 2018-12-27 04:04 | ED.RN ---
scanner not working.
[2018-12-27 05:06] VITALS: BP 100/60; PULSE 72; RESP 16; O2SAT 97
== END 2018-12-27 05:05 | disposition home or self-care (01) ==
PROVIDERS: Emergency Provider Emergency Medicine; Family Provider Family Medicine; PCP Family Medicine
DX: M54.5 Low back pain (principal); M25.551 Pain in right hip; M25.561 Pain in right knee; G82.20 Paraplegia, unspecified; F17.200 Nicotine dependence, unspecified, uncomplicated; Z99.3 Dependence on wheelchair; W05.0XXA Fall from non-moving wheelchair, initial encounter; Y93.89 Activity, other specified; Y92.008 Other place in unspecified non-institutional (private) residence as the place of occurrence of the external cause; Y99.8 Other external cause status
CPT/HCPCS: 72100; 73502; 73564; 99285

== ENCOUNTER 2019-01-02 00:11 | Emergency (ER) | payer MEDICAID, SELFPAY ==
[2019-01-02 00:16] VITALS: BP 117/78; PULSE 89; RESP 19; TEMP 36.5; O2SAT 100; BMI 18.1
[2019-01-02 00:24] VITALS: BP 111/92; PULSE 79; RESP 18; TEMP 36.6; O2SAT 98
[2019-01-02] MEDS: oxyCODONE 5 MG Tablet 10 MG PO (01:05)
--- NOTE | 2019-01-02 01:32 | ED.VIS.GEN ---
History of Present Illness Chief Complaint: Wound Check Informant: Patient Onset: Weeks Narrative: History of transverse myelitis nonambulatory chronic pressure ulcers. Had a diverting colostomy 2 years ago secondary to this. Symptoms worsen over the past week, increasing drainage. No fevers. No exudates. Has a wound care appointment tomorrow. Chronic pain secondary to his underlying history seen by pain management, he is out of his pain medicines, reports he called and they would not call back to refill this. Comes in for concerns of pain. Prior similar symptoms: Yes Past Medical History - Allergies and Home Meds Allergies/Adverse Reactions: Allergies adhesive tape Allergy (Verified 01/02/19 00:15) Rash aspirin Allergy (Verified 01/02/19 00:15) Unknown NSAIDS (Non-Steroidal Anti-Inflamma Allergy (Verified 01/02/19:15) Hives GREEN DYE Allergy (Uncoded 01/02/19 00:15) Unknown Primary Care Physician: Quinten Doan DO [Primary Care Provider] - Surgical History: - - Tympanostomy tubes. PEG tube. colostomy (permanent). excision right ischial pressure sore, Stage IV, with partial ostectomy for osteomyelitis and excision left ischial pressure sore, Stage IV, with partial ostectomy for osteomyelitis - 02/10/16. Smoking Status: Current every day smoker - Family History Paternal Family History: Reports: No pertinent history Maternal Family History: Reports: No pertinent history Review of Systems General: Denies: Chills, Fever, Sweats Eyes: Denies: Visual changes - bilaterally, Diplopia ENT: Denies: Rhinorrhea, Sore throat Cardiovascular: Denies: Chest pain, Palpitations Respiratory: Denies: Dyspnea, Cough, Dyspnea on exertion Gastrointestinal: Denies: Abdominal pain, Nausea, Vomiting, Diarrhea, Melena, Hematochezia Genitourinary: Denies: Dysuria, Hematuria, Frequency Musculoskeletal: Denies: Back pain, Extremity Pain Skin: Reports: Wounds. Denies: Rash Neurological: Denies: Headache, Weakness, Numbness Physical Exam Vital Signs/Narrative: Vital Signs Temp Pulse Resp BP Pulse Ox 01/02/19 00:24 97.8 F 79 18 111/92 H 98 01/02/19 00:16 97.7 F L 89 19 H 117/78 100 Inital Vital Signs reviewed: Yes General: - - Thin male, tearful, nontoxic Head: Normocephalic, Atraumatic ENT: Moist mucous membranes Cardiovascular: Regular rate, Regular rhythm, No murmurs Respiratory: No distress, CTA bilaterally Abdomen: Soft, Nontender, Nondistended Back: Nontender Skin: - - Right ischium small open pressure sore clear drainage, no exudate, no surrounding erythema. Left ischium with healed scar nontender. Diagnostic/Tx/Re-eval - Medical Decision Making Patient nontoxic vital signs stable, is open sore with no exudates or erythema. Duoderm patch was placed along with extra material. He was given oxycodone in the ED to help with symptoms. He understands he sees pain management, he will call again tomorrow being a week day to see if they can refill his medications. Discharge back to home with wound care follow-up as scheduled tomorrow. ED Disposition - Plan for ED Patient: Disposition: Home or Assisted Living Diagnosis: Right ischial pressure sore, stage 2 Instructions: Pressure Ulcer Referrals: Quinten Doan DO [Primary Care Provider] - Additional Instructions: Keep appointment with wound care tomorrow. Call your pain management physician office tomorrow again to refill your prescriptions.
[2019-01-02 02:59] VITALS: BP 115/72; PULSE 89; RESP 16; O2SAT 98
== END 2019-01-02 03:00 | disposition home or self-care (01) ==
PROVIDERS: Emergency Provider Emergency Medicine; Family Provider Family Medicine; PCP Family Medicine
DX: L89.312 Pressure ulcer of right buttock, stage 2 (principal); G89.29 Other chronic pain; F17.200 Nicotine dependence, unspecified, uncomplicated; Z93.3 Colostomy status
CPT/HCPCS: 11042; 87070; 87075; 87077; 87186; 87205; 99212; 99284; G0463

== ENCOUNTER 2019-01-02 15:08 | Outpatient (RCR) | payer MEDICAID, SELFPAY ==
[2019-01-02 00:16] VITALS: BMI 18.1
[2019-01-02 15:16] VITALS: BP 115/86; PULSE 119; RESP 18; TEMP 37.5; BMI 16.2
--- NOTE | 2019-01-02 19:33 | PCM.WC.HP ---
(1) Pressure injury of right elbow, stage 3 Status: Acute Code(s): L89.013 - Pressure ulcer of right elbow, stage 3 (2) Pressure injury of right ischium, stage 4 Status: Acute Code(s): L89.314 - Pressure ulcer of right buttock, stage 4 (3) Chronic osteomyelitis Status: Chronic Code(s): M86.60 - Other chronic osteomyelitis, unspecified site (4) History of intravenous drug use in remission Status: Chronic Code(s): Z87.898 - Personal history of other specified conditions Comment: Z87.898 (5) Malnutrition of moderate degree Status: Chronic Code(s): E44.0 - Moderate protein-calorie malnutrition (6) Nicotine dependence Status: Chronic Qualifiers: Code(s): F17.200 - Nicotine dependence, unspecified, uncomplicated Comment: F17.200 (7) Paraplegia, incomplete Status: Chronic Code(s): G82.22 - Paraplegia, incomplete Comment: G82.22 (8) Transverse myelitis Status: Chronic Comment: G37.3 History of Present Illness Date of Service: 01/02/19 Chief Complaint: Decubitus ulcers of right ischium and right elbow History of Wound: This is a 28-year-old white male who presents to the wound healing center today with complaints of a pressure injury to the right elbow and right lower buttock. He states that these have been present for the past 6 to 12 months on and off intermittently. He has a past medical history as listed above significant for functional quadriplegia, history of transverse myelitis and IV drug use, tobacco abuse, and also a history of prior ostectomy for osteomyelitis of the right and left ischium in 2016. The patient states that for wound care he has been utilizing [id number] triple antibiotic ointment. He states that he utilizes his elbows frequently to help transfer himself and this causes constant pressure. He also notes that he has pressure on the bilateral buttocks due to his paraplegia. He has been to the emergency department multiple times for wound checks and for his pain. He does state that he follows up with pain management. He did have an x-ray done on 12/27/2018 which showed chronic osteomyelitis of the right ischium. He denies any other acute concerns at this time. He otherwise denies any fever, chills, nausea, vomiting, shortness of breath, chest pain or pressure, syncope or presyncopal episodes. Past Medical History Past Medical History: Chronic Problems Radiculopathy of lumbosacral region (Chronic) Neurogenic bladder (Chronic) Chronic osteomyelitis (Chronic) Malnutrition of moderate degree (Chronic) Hypotension (Chronic) History of intravenous drug use in remission (Chronic) Z87.898 Pressure sore of left ischium, stage 4 (Chronic) L89.324 Right ischial pressure sore, stage 4 (Chronic) L89.314 Paraplegia, incomplete (Chronic) G82.22 Nicotine dependence (Chronic) F17.200 Decubitus skin ulcer (Chronic) Bilateral buttocks Transverse myelitis (Chronic) G37.3 Functional quadriplegia (Chronic) Neurogenic bladder with indwelling [place] (Chronic) Surgical History: - - Tympanostomy tubes. PEG tube. colostomy (permanent). excision right ischial pressure sore, Stage IV, with partial ostectomy for osteomyelitis and excision left ischial pressure sore, Stage IV, with partial ostectomy for osteomyelitis - 02/10/16. Allergies/Adverse Reactions: Allergies adhesive tape Allergy (Verified 01/02/19 00:15) Rash aspirin Allergy (Verified 01/02/19 00:15) Unknown NSAIDS (Non-Steroidal Anti-Inflamma Allergy (Verified 01/02/19 00:15) Hives GREEN DYE Allergy (Uncoded 01/02/19 00:15) Unknown Home Medications: Ambulatory Orders Medication Instructions Recorded Acetaminophen [Tylenol Tablet] 650 mg PO Q6H PRN 02/09/16 Cholecalciferol (VIT D3) [Vitamin 2,000 unit PO DAILY 02/09/16 D3] Famotidine [Pepcid] 20 mg PO BID 03/29/16 Gabapentin [Neurontin] 800 mg PO 4X/DAY 04/25/16 Fluticasone 0.05% [Flonase Nasal 2 spray NASAL DAILY 10/11/16 [place]] Escitalopram Oxalate [Lexapro] 20 mg PO DAILY 08/12/18 Lidocaine [Lidocare] 1 each TP DAILY 08/12/18 Naproxen 250 mg PO Q12H PRN PRN 09/11/18 Senna/Docusate Sodium [Senokot-S] 2 tab PO BID PRN PRN #30 tab 06/21/19 Baclofen 20 mg PO 4X/DAY 10/24/18 Polyethylene Glycol 3350 [Miralax] 17 gm PO DAILY PRN 10/24/18 Psyllium [Metamucil] 1 packet PO DAILY PRN 10/24/18 - Family History Paternal No pertinent history Maternal No pertinent history Smoking Status: Current every day smoker Review of Systems Constitutional: Denies: Chills, Fever, Weight Change Eyes: Denies: Pain, Vision Change HEENT: Denies: Difficulty Hearing, Difficulty Swallowing, Sinus Congestion Cardiovascular: Denies: Chest Pain, Palpitations Respiratory: Denies: Cough, Shortness of Breath Gastrointestinal: Denies: Diarrhea, Nausea, Vomiting Genitourinary: Denies: Dysuria, Hematuria Skin: Reports: Wounds - see hpi Endocrine: Denies: Heat/ Cold Intolerance, Polydipsia, Polyuria Hematologic/ Lymphatic: Denies: Easy Bruising, Easy Bleeding - Physical Exam Vital Signs Temp Pulse Resp BP 99.5 F H 119 H 18 115/86 H 01/02/19 15:16 01/02/19 15:16 01/02/19 15:16 01/02/19 15:16 General: Alert, Oriented x3, Cooperative, No apparent distress HEENT: Atraumatic, - - scabbing on face due to recent fall Oral: Moist Mucosa Neck: Supple Lungs: Clear to auscultation Cardiovascular: Regular rate, Regular Rhythm, Normal S1, Normal S2 Abdomen: Soft, Non Tender, Non-Distended, - - colostomy in place right lower quadrant Extremities: No clubbing, No cyanosis, No edema Skin: Ulcer/ Wound - See nursing documentation, stage 3 pressure ulcer to right elbow with adherant slough, stage 4 pressure ulcer right ischium pinpoint opening and probes to bone, no drainage at this time, circumfrential undermining Musculoskeletal: Cachexia, Muscle Wasting Neurological: - - a x o x 3 Psych/Mental Status: Normal Affect, Impulsive, Alert and oriented to time, place, person, mood and affect Debridement Note Post-Debridement Measurements/Treatment WC - Nurse 2 - General Ulcer CM Notes Start: 01/02/19 15:16 Freq: Status: Active Protocol: Activity Type Activity Date Activity User E-Sign Co-Sign Detail Recorded Client Recorded Date Recorded By Document 01/02/19 16:33 AN [id number] 10/10/19 16:47 AN 01/02/19 16:33 Wound Center Nurse 2 #6 right buttock -Time 16:46 -Correct Patient Yes -Correct Side, Site, Position Yes -Correct Procedure Yes -Procedure Performed Yes -Type of Procedure Debridement -Clinical Debridement Subcutaneous -Post Debridement Size (cm) - Length 0.3 -Post Debridement Size (cm) - Width 0.3 -Post Debridement Size (cm) - Depth 1.7 -Total Square Cm 0.09 -Wound/Ulcer Outcome Not Healed -Ulcer Cleansing Rinsed/ Irrigated with Saline -Foul Odor after Cleansing No -Bioengineered Tissue No -Bleeding Controlled with Pressure -Offloading Yes -Treatment Response Procedure Tolerated Well #5 right elbow -Time 16:36 -Correct Patient Yes -Correct Side, Site, Position Yes -Correct Procedure Yes -Procedure Performed Yes -Type of Procedure Debridement -Clinical Debridement Subcutaneous -Post Debridement Size (cm) - Length 3.5 -Post Debridement Size (cm) - Width 3.4 -Post Debridement Size (cm) - Depth 0.4 -Total Square Cm 11.90 -Wound/Ulcer Outcome Not Healed -Ulcer Cleansing Rinsed/ Irrigated with Saline -Foul Odor after Cleansing No -Bioengineered Tissue No Pain Scale: 0-10 Numeric Is Patient Pain Free? Yes Wound debrided: right elbow stage three pressure ulcer Laterality: Right Type of Debridement: Excisional debridement Anesthesia Used: 5% Lidocaine Gel Depth: in the subcutaneous layer Percentage of wound debrided: 100 Instrument Used: 5mm curette Tissue Removed: slough and devitalized tissue Severity: Fat Layer Exposed Amount of bleeding with debridement: Mild Bleeding Controlled with: Pressure Patient tolerated procedure well - Additional Wound Wound debrided: stage 4 pressure ulcer right ischium Laterality: Right Type of Debridement: Excisional debridement Anesthesia Used: 4% Lidocaine Solution Depth: to bone - pinpoint hole probes to bone Percentage of wound debrided: 100 Instrument Used: - - 1 mm currette Tissue Removed: devitalized tissue Severity: Necrosis of Bone Amount of bleeding with debridement: None Bleeding Controlled with: Pressure Patient tolerated procedure: Patient tolerated procedure well Assessment/Plan Assessment: Stage 4 pressure injury to right ischium with chronic osteomyelitis. Stage 3 pressure injury right elbow. Paraplegia. Status post colostomy placement. Nicotine dependence. Plan: The patient was seen and examined at the wound center today and was updated on the plan of care. A subcutaneous debridement was performed today. The patient tolerated the procedure well. The patients wound care will consist of: moistened dale cover with kerlix and abd change daily to right elbow and packing ischial pressure injury with iodaform gauze and abd for offloading. Discussed the importance of offlaoding, though pt states that he will likely be noncompliant. Wound cultures were unable to be collected and the ischial pressure ulcer is pinpoint, but does probe to bone. Given the fact that the pressure injury probes to bone and recent x-ray showed chronic osteomyelitis, a referral will be made to plastic surgery where bone cultures can be collected. Baseline bloodwork ordered. Patient educated on the importance of diet on wound healing and instructed to increase protein and vitamin C intake. Patient verbalized understanding. Patient will follow up at wound healing center in one week or sooner if needed. This note was generated with [employer] dictation software. It may contain incorrect words, spelling, and punctuation that were not noted in checking the note before signing. Code Visit Office Visits / Consults: 30051 OV L4 Est [id number]: [id number] [place] subq tissue 20 sq cm/<
== END 2019-01-23 23:59 ==
LOC: WC 15:08
PROVIDERS: Family Provider Family Medicine; PCP Family Medicine; Visit Provider Nurse Practitioner Family
DX: L89.214 Pressure ulcer of right hip, stage 4 (principal); L89.013 Pressure ulcer of right elbow, stage 3; E44.0 Moderate protein-calorie malnutrition; Z68.1 Body mass index [BMI] 19.9 or less, adult; F17.200 Nicotine dependence, unspecified, uncomplicated; G82.22 Paraplegia, incomplete; G37.3 Acute transverse myelitis in demyelinating disease of central nervous system; N31.9 Neuromuscular dysfunction of bladder, unspecified; Z93.3 Colostomy status; M86.651 Other chronic osteomyelitis, right thigh
CPT/HCPCS: 11042; 99212; G0463

== ENCOUNTER 2019-01-04 00:21 | Emergency (ER) | payer MEDICAID, SELFPAY ==
[2019-01-04 00:22] VITALS: BP 116/72; PULSE 102; RESP 18; TEMP 36.9; O2SAT 98; BMI 17.9
[2019-01-04 00:25] VITALS: BP 116/72; PULSE 102; RESP 18; TEMP 36.9; O2SAT 98
--- NOTE | 2019-01-04 01:51 | ED.DCSUM_ITS ---
History of Present Illness Chief Complaint: Wound Detail of Chief Complaint: Buttocks pain secondary to decubitus Informant: Patient Onset: Today Context: Sudden Onset Timing: Continuous Quality: Pain right buttocks Location: Right medial superior buttocks region Current Severity: Moderate Maximum Severity: Severe Worsened by: Supine position Relieved by: Nothing Associated Symptoms: No constitutional symptoms Narrative: Patient is 28-year-old male who presents with right buttocks pain secondary to presumed infected decubitus. States he was seen at wound center. He informed me that they were concerned this represented infection. He denies fever chills. He states there is drainage. He denies dysuria, frequency, urgency hematuria. He denies incontinence. He is not ambulatory. Prior similar symptoms: Yes Recent Illness/Hospitalization: Yes - Past Medical History (1) Debility Status: Acute (2) Dehydration Status: Acute (3) Osteomyelitis Status: Acute Comment: M86.9 (4) Decubitus skin ulcer Status: Chronic Comment: Bilateral buttocks (5) Neurogenic bladder Status: Chronic (6) Nicotine dependence Status: Chronic Comment: F17.200 (7) Paraplegia, incomplete Status: Chronic Comment: G82.22 (8) Transverse myelitis Status: Chronic Comment: G37.3 Past Medical History - Allergies and Home Meds Allergies/Adverse Reactions: Allergies adhesive tape Allergy (Verified 01/02/19 00:15) Rash aspirin Allergy (Verified 01/02/19 00:15) Unknown NSAIDS (Non-Steroidal Anti-Inflamma Allergy (Verified 01/02/19 00:15) Hives GREEN DYE Allergy (Uncoded 01/02/19 00:15) Unknown Primary Care Physician: Quinten Doan DO [Primary Care Provider] - Prior records reviewed: Yes Surgical History: - - Tympanostomy tubes. PEG tube. colostomy (permanent). excision right ischial pressure sore, Stage IV, with partial ostectomy for osteomyelitis and excision left ischial pressure sore, Stage IV, with partial ostectomy for osteomyelitis - 02/10/16. Lives: Alone Smoking Status: Current every day smoker Alcohol: Rare Drugs: None - Family History Paternal Family History: Reports: No pertinent history Maternal Family History: Reports: No pertinent history Review of Systems General: Denies: Chills, Fever, Malaise, Subjective, Sweats Eyes: Denies: Visual changes - bilaterally, Blurred Vision - bilaterally ENT: Denies: Rhinorrhea, Sore throat Cardiovascular: Denies: Chest pain, Palpitations Respiratory: Denies: Dyspnea, Cough, Dyspnea on exertion Gastrointestinal: Denies: Abdominal pain, Nausea, Vomiting, Diarrhea, Melena, Hematochezia Genitourinary: Denies: Dysuria, Hematuria Musculoskeletal: Denies: Myalgias, Arthralgias, Neck pain, Back pain, Swelling, Extremity Pain Skin: Reports: Rash, Abscess, Wounds Neurological: Denies: Headache Psych: Reports: Depression Hematologic: Denies: Easy bruising, Easy bleeding Physical Exam Vital Signs/Narrative: Vital Signs Temp Pulse Resp BP Pulse Ox 01/04/19 00:25 98.5 F 102 H 18 116/72 98 01/04/19 00:22 98.5 F 102 H 18 116/72 98 Inital Vital Signs reviewed: Yes General: Well nourished, Well developed, No Acute Distress Head: Normocephalic, Atraumatic Eyes: Perrl, EOMI. Negative for: Pale conjunctiva, Scleral icterus ENT: Moist mucous membranes, No rhinorrhea Neck: Supple, Nontender Cardiovascular: Regular rate, Regular rhythm, No murmurs, Normal S1, Normal S2 Respiratory: No distress, CTA bilaterally, Chest nontender Abdomen: Soft, Nontender, Nondistended, Normal bowel sounds Rectal: - - Patient has a healed decubitus left medial superior buttocks. There is a healing decubitus without evidence of infection right buttocks. There is no erythema, warmth, fluctuance or drainage. : - - Normal penis. No urethral discharge. Testes center bilaterally. Back: Nontender, Normal Inspection Extremities: Nontender, No edema Skin: Normal color, No rash Neurological: Alert, Oriented x3, Cranial nerves II-XII grossly intact. Negative for: Normal Strength, Normal Sensation, Normal DTR, Normal Gait Psychological: Depressed Diagnostic/Tx/Re-eval Laboratory Results 01/04/19 01/04/19 01:10 01:10 WBC 7.2 RBC 5.06 Hgb 15.1 Hct 47.3 MCV 93.5 MCH 29.8 MCHC 31.9 L RDW Std Deviation 46.1 H RDW Coeff of Joaquín 13.6 Plt Count 200 MPV 11.1 Immature Gran % (Auto) 0.300 Neut % (Auto) 68.6 Lymph % (Auto) 19.2 [place] % (Auto) 7.4 Eos % (Auto) 3.8 Baso % (Auto) 0.7 Absolute Neuts (auto) 4.9 Absolute Lymphs (auto) 1.38 Nucleated RBC % 0 Sodium 141 Potassium 4.2 Chloride 105 Carbon Dioxide 30.0 Anion Gap 6 BUN 9 Creatinine 0.57 L Estim Creat Clear Calc 158.83 Est GFR (MDRD) Af Amer 220 Est GFR (MDRD) Non-Af 182 BUN/Creatinine Ratio 15.9 Glucose 95 Calcium 9.4 Laboratory results are unremarkable. - Medical Decision Making Clinically the wound does not appear infected. Because he is complaining of some much pain and states he was seen at the wound center and told there is infection baseline blood work was obtained. If this is normal he will be discharged home. He requested pain medicine. He was administered Tylenol. I was informed by his nurse he was dissatisfied with my selection of analgesia. Patient was informed again that he would receive nothing other than Tylenol for his pain. Since his work-up is negative and his wound is insignificant. He has a stage III right buttocks decubitus that is not infected. The opening is approximately 7 mm. funeral home location manager was consulted to facilitate disposition since he states he does not feel safe at home and is not welcome back home. ED Disposition - Plan for ED Patient: Disposition: Home or Assisted Living Diagnosis: Decubitus ulcer of right buttock, stage 3, Pain in right buttock, Paraplegia Instructions: Decubitus Ulcer, PAIN, Uncertain Cause (Acute) Referrals: Quinten Doan DO [Primary Care Provider] - 3-5 Days
[2019-01-04 02:07] LABS: Absolute Lymphocyte Count 1.38 X10^3/uL (0.83-4.51); Absolute Neutrophil Count 4.9 X10^3/uL (2.0-7.7); Basophil# 0.05 X10^3/uL; Basophil% 0.7 % (0-1); Eosinophil# 0.27 X10^3/uL; Eosinophils% 3.8 % (0-5); Hematocrit 47.3 % (40-54); Hemoglobin 15.1 g/dL (13.0-16.5); Lymphocyte # 1.38 X10^3/ul (4.0); Lymphocyte % 19.2 % (19-41); Mean Corp Hgb Conc 31.9 g/dL (32-36); Mean Corpuscular Hgb 29.8 pg (27.0-32.0); Mean Corpuscular Volume 93.5 fL (80-94); Mean Platelet Vol. 11.1 fl (6.2-12.0); Monocyte# 0.53 X10^3/uL; Monocyte% 7.4 % (0-10); NRBC Flagged by Analyzer 0 % (0-5); Neutrophil # 4.92 X10^3/uL (2.7-7.7); Neutrophil % 68.6 % (47-70); Platelet Count 200 K/mm3 (150-450); RBC Distribution Width CV 13.6 % (11.6-14.6); RBC Distribution Width SD 46.1 fl (35.1-43.9); Red Blood Count 5.06 M/mm3 (4.6-6.2); White Blood Count 7.2 K/mm3 (4.4-11.0)
[2019-01-04 02:10] LABS: Anion Gap 6 (5-15); BUN 9 mg/dL (7-18); BUN/Creat Ratio 15.9 RATIO (10-20); Calcium,Total 9.4 mg/dL (8.5-10.1); Chloride 105 mmol/L (98-107); Creatinine, Serum 0.57 mg/dL (0.70-1.30); EST Glomerular Filtration Rate 182 mL/min (>60); Est Glom Filt Rate - Afr Amer 220 mL/min (>60); Estimated Creatinine Clearance 158.83 ml/min; Glucose 95 mg/dL (74-106); Potassium 4.2 mmol/L (3.5-5.1); Sodium Level 141 mmol/L (136-145)
--- NOTE | 2019-01-04 02:18 | ED.RN ---
PT DECLINED TYLENOL. STATES I TOOK SOME TYLENOL RIGHT BEFORE THE AMBULANCE PICKED ME UP. PT EXPRESSED CONCERNS THAT HE WAS KICKED OUT OF HIS HOUSE AND CAN'T GO BACK. PT STATES THEY MAY LET ME BACK BUT I CAN'T TAKE CARE OF MYSELF AND I DON'T KNOW THAT THEY WILL TAKE CARE OF ME. I GUESS I NEED TO GO BACK TO A PRISON. DR ISRAEL NOTIFIED OF THE SAME. SOCIAL / CASE MANAGEMENT CONSULT ORDERED
[2019-01-04 03:52] VITALS: BP 97/59; PULSE 82; RESP 15; O2SAT 97
[2019-01-04] MEDS: Acetaminophen 325 MG Tablet 650 MG PO (05:08)
[2019-01-04] MEDS: Gabapentin 800 MG Tablet PO (07:52)
[2019-01-04] MEDS: Baclofen 10 MG Tablet 20 MG PO (07:52)
[2019-01-04 08:11] VITALS: PULSE 75; RESP 14; O2SAT 99
--- NOTE | 2019-01-04 11:50 | CM.ED ---
SOCIAL WORK INFORMANT: DR. DURÁN AND NURSING REASON FOR REFERRAL: D/C PLANNING LIVING SITUATION: PATIENT REPORTS LIVES HOME WITH STEP-MOTHER AND COUSIN. PATIENT STATES STEP-MOTHER ASSISTS WITH CARE. DME: ELECTRIC WHEELCHAIR, SHOWER CHAIR, HOSPITAL BED PCP: DR. MAYO MENTAL HEALTH HISTORY: PATIENT DENIES ANY HISTORY OF MENTAL HEALTH. SUBSTANCE ABUSE HISTORY: PATIENT REPORTS OCCASIONAL USE OF MARIJUANA. ASSESSMENT: SOCIAL SERVICE ASSESSMENT FOR SAFE DISCHARGE PLANNING PATIENT REPORTED SAFETY CONCERNS. MET WITH PATIENT IN ROOM. PATIENT SLEEPING UPON ENTERING ROOM AND AWOKE EASILY. INTRODUCED ROLE AND REASON FOR REFERRAL. PATIENT REPORTS LIVES HOME IN AN APARTMENT WITH STEP-MOTHER AND COUSIN. PATIENT STATES STEP-MOTHER ASSISTS WITH CARE AND STATES IT IS TOO MUCH FOR HER TO CONTINUE. PATIENT WANTING HOME HEALTH REFERRAL. DISCUSSED [facility]. PATIENT REPORTS SOMEONE WAS AT THE HOME RECENTLY AND WAS ASKING QUESTIONS ABOUT AIDE SERVICES. THIS WORKER TO FOLLOW UP WITH REFERRALS FOR [facility] SERVICES AND WAIVER. REVIEWED HOME HEALTH AGENCIES WITH PATIENT. PATIENT DENIES ANY PREFERENCE STATING, I JUST WANT HELP OR I WILL BE BACK. PATIENT STATES WILL NOT HAVE TRANSPORTATION HOME. WILL NEED TO ASSIST. UPDATED STAFF ON THIS WORKER'S ASSESSMENT. PLAN: HOME WITH REFERRAL FOR [facility] HOME HEALTH AND WAIVER. Shanelle SAWYER, EMPLOYMENT DIRECTOR, [employer].
--- NOTE | 2019-01-04 12:55 | ED.RN ---
[facility] HERE TO TRANSPORT PATIENT HOME, REPORT GIVEN TO THEM, PT STATUS UNCHANGED.
--- NOTE | 2019-01-04 13:09 | ED.VISSUMM ---
- ER Visit Summary Date of Service: 01/04/19 Chief Complaint: [Addendum to initial dictation by Dr. Cali Hsu] History of Present Illness: The patient is a 28 M [seen by Dr. Hsu this morning and care turned over to me to await evaluation by social work as patient stated that he may not have anywhere to live. It was found out through social work that patient does have a place to live and he does feel safe going home. Patient will be discharged to home.] Physical Examination: [] Test Results: [] Emergency Department Course and Treatment: [] Treatment Plan: [] Disposition: [Discharged home in stable condition] Impression: [Decubitus ulcer-not infected Chronic pain] This note was generated with [employer] dictation software. It may contain incorrect words, spelling, and punctuation that were not noted in review of the chart prior to signing ED Disposition - Plan for ED Patient: Disposition: Home or Assisted Living Diagnosis: Decubitus ulcer of right buttock, stage 3, Pain in right buttock, Paraplegia Instructions: Decubitus Ulcer, PAIN, Uncertain Cause (Acute) Referrals: Quinten Doan DO [Primary Care Provider] - 3-5 Days
--- NOTE | 2019-01-04 13:22 | ED.RN ---
REPORT GIVEN TO [facility], PT STATUS UNCHANGED. MOTHER AWARE PATIENT IS ON HIS WAY BACK TO HOME.
--- NOTE | 2019-01-04 13:41 | CM.ED ---
Addendum entered by Nata Grace 01/06/19 13:29: [phone][facility] Patient has been accepted and they are contacting patient to set up intake appointment. Addendum entered by Sondra Newton 01/04/19 13:49: CALL TO [facility] ( ). LEFT MESSAGE REGARDING REQUEST FOR MEDICAID WAIVER. Original Note: SOCIAL WORK REFERRAL CALLED AND FAXED TO [facility]. ON-COURTROOM DEPUTY STATES INTAKE WILL REVIEW REFERRAL ON SUNDAY. GEORGES MENDEZ, PARK RANGER.
== END 2019-01-04 13:23 | disposition home or self-care (01) ==
PROVIDERS: Emergency Provider Emergency Medicine; Family Provider Family Medicine; PCP Family Medicine
DX: L89.313 Pressure ulcer of right buttock, stage 3 (principal); G82.22 Paraplegia, incomplete; G89.29 Other chronic pain; G37.3 Acute transverse myelitis in demyelinating disease of central nervous system; Z79.899 Other long term (current) drug therapy; F17.200 Nicotine dependence, unspecified, uncomplicated
CPT/HCPCS: 80048; 85025; 99285

== ENCOUNTER → 2019-01-13 05:00 | Outpatient (REF) | payer MEDICAID, SELFPAY ==
[2019-01-04 00:22] VITALS: BMI 17.9
[2019-01-13 08:19] LABS: Hematocrit 40.5 % (40-54); Hemoglobin 12.9 g/dL (13.0-16.5); Mean Corp Hgb Conc 31.9 g/dL (32-36); Mean Corpuscular Hgb 29.9 pg (27.0-32.0); Mean Corpuscular Volume 93.8 fL (80-94); Mean Platelet Vol. 11.7 fl (6.2-12.0); Platelet Count 154 K/mm3 (150-450); RBC Distribution Width CV 14.2 % (11.6-14.6); RBC Distribution Width SD 48.2 fl (35.1-43.9); Red Blood Count 4.32 M/mm3 (4.6-6.2); White Blood Count 6.4 K/mm3 (4.4-11.0)
[2019-01-13 08:49] LABS: ALB/GLOB Ratio 0.8 RATIO (0.9-2.4); AST(SGOT) 18 U/L (15-37); Alanine Aminotransfer ALT/SGPT 27 U/L (16-61); Albumin, Serum 3.2 g/dL (3.2-5.0); Alkaline Phosphatase 60 U/L (45-117); Anion Gap 6 (5-15); BUN 18 mg/dL (7-18); BUN/Creat Ratio 31.5 RATIO (10-20); Calcium,Total 8.8 mg/dL (8.5-10.1); Chloride 108 mmol/L (98-107); Cholesterol 130 mg/dL (200); Creatinine, Serum 0.57 mg/dL (0.70-1.30); EST Glomerular Filtration Rate 180 mL/min (>60); Est Glom Filt Rate - Afr Amer 218 mL/min (>60); Globulin 3.9 g/dL (2.2-4.2); Glucose 90 mg/dL (74-106); High Density Lipoprotein 28 mg/dL; Potassium 3.9 mmol/L (3.5-5.1); Protein, Total 7.1 g/dL (6.4-8.2); Sodium Level 141 mmol/L (136-145); Thyroid Stim Hormone (TSH) 1.61 uIU/mL (0.358-3.74); Triglycerides 78 mg/dL; Very Low Density Lipoprotein 16 mg/dL (5-40)
[2019-01-13 09:03] LABS: Vitamin D,25 Hydroxy 31.2 ng/mL (29.95-100.01)
== END ==
LOC: OLS.ACW300 05:00
PROVIDERS: Visit Provider Family Medicine
DX: G61.82 Multifocal motor neuropathy (principal); M62.82 Rhabdomyolysis; G37.3 Acute transverse myelitis in demyelinating disease of central nervous system; E43 Unspecified severe protein-calorie malnutrition; F90.0 Attention-deficit hyperactivity disorder, predominantly inattentive type; G82.54 Quadriplegia, C5-C7 incomplete; R00.1 Bradycardia, unspecified
CPT/HCPCS: 36415; 80053; 80061; 82306; 82533; 84443; 85027

== ENCOUNTER → 2019-01-23 05:00 | Outpatient (REF) | payer MEDICAID, SELFPAY ==
[2019-01-04 00:22] VITALS: BMI 17.9
[2019-01-23 08:22] LABS: Hematocrit 40.9 % (40-54); Hemoglobin 13.1 g/dL (13.0-16.5); Mean Corpuscular Hgb 29.9 pg (27.0-32.0); Mean Corpuscular Volume 93.4 fL (80-94); Mean Platelet Vol. 11.4 fl (6.2-12.0); Platelet Count 148 K/mm3 (150-450); RBC Distribution Width CV 14.9 % (11.6-14.6); RBC Distribution Width SD 51.8 fl (35.1-43.9); Red Blood Count 4.38 M/mm3 (4.6-6.2); White Blood Count 5.1 K/mm3 (4.4-11.0)
[2019-01-23 08:50] LABS: ALB/GLOB Ratio 0.8 RATIO (0.9-2.4); AST(SGOT) 11 U/L (15-37); Alanine Aminotransfer ALT/SGPT 16 U/L (16-61); Albumin, Serum 3.1 g/dL (3.2-5.0); Alkaline Phosphatase 68 U/L (45-117); Anion Gap 9 (5-15); BUN 19 mg/dL (7-18); BUN/Creat Ratio 36.9 RATIO (10-20); Calcium,Total 8.7 mg/dL (8.5-10.1); Chloride 106 mmol/L (98-107); Cholesterol 138 mg/dL (200); Creatinine, Serum 0.52 mg/dL (0.70-1.30); EST Glomerular Filtration Rate 203 mL/min (>60); Est Glom Filt Rate - Afr Amer 246 mL/min (>60); Globulin 3.7 g/dL (2.2-4.2); Glucose 122 mg/dL (74-106); High Density Lipoprotein 26 mg/dL; Potassium 3.6 mmol/L (3.5-5.1); Protein, Total 6.8 g/dL (6.4-8.2); Sodium Level 142 mmol/L (136-145); Thyroid Stim Hormone (TSH) 1.58 uIU/mL (0.358-3.74); Triglycerides 120 mg/dL; Very Low Density Lipoprotein 24 mg/dL (5-40)
[2019-01-23 11:54] LABS: Vitamin D,25 Hydroxy 36.1 ng/mL (29.95-100.01)
== END ==
LOC: OLS.ACW300 05:00
PROVIDERS: Visit Provider Family Medicine
DX: G37.3 Acute transverse myelitis in demyelinating disease of central nervous system (principal); D63.8 Anemia in other chronic diseases classified elsewhere; G82.54 Quadriplegia, C5-C7 incomplete; G82.22 Paraplegia, incomplete; M62.82 Rhabdomyolysis
CPT/HCPCS: 36415; 80053; 80061; 82306; 83735; 84443; 85027

== ENCOUNTER → 2019-03-11 07:30 | Outpatient (REF) | payer MEDICAID, SELFPAY | LOC: OLS.ACW300 07:30 | PROVIDERS: Family Provider Family Medicine; PCP Family Medicine; Visit Provider Family Medicine | DX: G37.3 Acute transverse myelitis in demyelinating disease of central nervous system (principal); D63.8 Anemia in other chronic diseases classified elsewhere; G82.54 Quadriplegia, C5-C7 incomplete; G82.22 Paraplegia, incomplete; M62.82 Rhabdomyolysis | CPT/HCPCS: 87070; 87077; 87186; 87205 ==

== ENCOUNTER → 2019-05-28 02:30 | Outpatient (REF) | payer MEDICAID, SELFPAY | LOC: OLS.ACW300 02:30 | PROVIDERS: PCP Family Medicine; Visit Provider Family Medicine | DX: G37.3 Acute transverse myelitis in demyelinating disease of central nervous system (principal); D63.8 Anemia in other chronic diseases classified elsewhere; G82.54 Quadriplegia, C5-C7 incomplete; G82.22 Paraplegia, incomplete; M62.82 Rhabdomyolysis; R52 Pain, unspecified | CPT/HCPCS: 87070; 87077; 87186; 87205 ==

== ENCOUNTER → 2019-05-30 22:10 | Outpatient (REF) | payer MEDICAID, SELFPAY | LOC: OLS.ACW300 22:10 | PROVIDERS: Visit Provider Family Medicine | DX: R52 Pain, unspecified (principal) | CPT/HCPCS: 87070; 87077; 87186; 87205 ==

== ENCOUNTER → 2019-06-06 12:00 | Outpatient (REF) | payer MEDICAID, SELFPAY ==
[2019-06-06 13:32] LABS: Vancomycin, Trough Level 5.1 ug/mL (5.0-15.0)
== END ==
LOC: OLS.ACW300 12:00
PROVIDERS: PCP Family Medicine; Visit Provider Family Medicine
DX: G37.3 Acute transverse myelitis in demyelinating disease of central nervous system (principal); D63.8 Anemia in other chronic diseases classified elsewhere; G82.54 Quadriplegia, C5-C7 incomplete; G82.22 Paraplegia, incomplete; M62.82 Rhabdomyolysis
CPT/HCPCS: 36415; 80202

== ENCOUNTER → 2019-06-09 15:30 | Outpatient (REF) | payer MEDICAID, SELFPAY ==
[2019-06-09 17:23] LABS: Vancomycin, Trough Level 8.5 ug/mL (5.0-15.0)
== END ==
LOC: OLS.ACW300 15:30
PROVIDERS: PCP Family Medicine; Visit Provider Family Medicine
DX: G37.3 Acute transverse myelitis in demyelinating disease of central nervous system (principal); Z79.2 Long term (current) use of antibiotics; D63.8 Anemia in other chronic diseases classified elsewhere; G82.54 Quadriplegia, C5-C7 incomplete; G82.22 Paraplegia, incomplete; M62.82 Rhabdomyolysis
CPT/HCPCS: 36415; 80202

== ENCOUNTER → 2019-07-22 04:00 | Outpatient (REF) | payer MEDICAID, SELFPAY ==
[2019-07-22 09:06] LABS: Color, Urine Yellow (Yellow); Glucose, Dipstick Normal (Normal); Ketone-Dipstick Negative (Negative); Leukocyte Esterase-Dipstick 100 /ul (Negative); Nitrite-Dipstick Negative (Negative); Occult Blood-Urine 250 /ul (Negative); Protein-Dipstick 30 mg/dl (Negative); Urine Bilirubin Dipstick Negative (Negative); Urine Clarity Sl. Cloudy (Clear); Urine Urobilinogen Normal (Normal); Urine pH 6.5 (5.0 - 8.0)
== END ==
LOC: OLS.ACW300 04:00
PROVIDERS: PCP Family Medicine; Visit Provider Family Medicine
DX: N31.9 Neuromuscular dysfunction of bladder, unspecified (principal); G37.3 Acute transverse myelitis in demyelinating disease of central nervous system; D63.8 Anemia in other chronic diseases classified elsewhere; G82.54 Quadriplegia, C5-C7 incomplete; G82.22 Paraplegia, incomplete; M62.82 Rhabdomyolysis
CPT/HCPCS: 81002; 87077; 87086; 87088

== ENCOUNTER → 2019-12-26 19:05 | Outpatient (REF) | payer MEDICAID, SELFPAY | LOC: OLS.ACW300 19:05 | PROVIDERS: PCP Family Medicine; Referring Provider Family Medicine; Visit Provider Family Medicine | DX: G37.3 Acute transverse myelitis in demyelinating disease of central nervous system (principal); D63.8 Anemia in other chronic diseases classified elsewhere; G82.51 Quadriplegia, C1-C4 complete; G82.22 Paraplegia, incomplete; M62.82 Rhabdomyolysis | CPT/HCPCS: 36415 ==

== ENCOUNTER → 2020-01-09 10:53 | Outpatient (REF) | payer MEDICAID, SELFPAY | LOC: OLS.ACW300 10:53 | PROVIDERS: PCP Family Medicine; Visit Provider Family Medicine | DX: Z03.818 Encounter for observation for suspected exposure to other biological agents ruled out (principal) | CPT/HCPCS: 87635; U0003 ==

== ENCOUNTER → 2020-01-15 13:04 | Outpatient (REF) | payer MEDICAID, SELFPAY | LOC: OLS.ACW300 13:04 | PROVIDERS: PCP Family Medicine; Referring Provider Family Medicine; Visit Provider Family Medicine | DX: Z03.818 Encounter for observation for suspected exposure to other biological agents ruled out (principal) | CPT/HCPCS: 87635; U0003 ==

== ENCOUNTER → 2020-02-20 05:00 | Outpatient (REF) | payer MEDICAID, SELFPAY ==
[2020-02-20 09:43] LABS: Hematocrit 46.3 % (40-54); Hemoglobin 14.6 g/dL (13.0-16.5); Mean Corp Hgb Conc 31.5 g/dL (32-36); Mean Corpuscular Hgb 29.9 pg (27.0-32.0); Mean Corpuscular Volume 94.7 fL (80-94); Mean Platelet Vol. 11.3 fl (6.2-12.0); Platelet Count 123 K/mm3 (150-450); RBC Distribution Width CV 12.5 % (11.6-14.6); RBC Distribution Width SD 43.9 fl (35.1-43.9); Red Blood Count 4.89 M/mm3 (4.6-6.2)
[2020-02-20 10:04] LABS: ALB/GLOB Ratio 1.1 RATIO (0.9-2.4); AST(SGOT) 9 U/L (15-37); Alanine Aminotransfer ALT/SGPT 20 U/L (16-61); Albumin, Serum 3.9 g/dL (3.2-5.0); Alkaline Phosphatase 74 U/L (45-117); Anion Gap 4 (5-15); BUN 14 mg/dL (7-18); BUN/Creat Ratio 24.8 RATIO (10-20); Calcium,Total 9.2 mg/dL (8.5-10.1); Chloride 110 mmol/L (98-107); Creatinine, Serum 0.56 mg/dL (0.70-1.30); EST Glomerular Filtration Rate 181 mL/min (>60); Est Glom Filt Rate - Afr Amer 219 mL/min (>60); Globulin 3.5 g/dL (2.2-4.2); Glucose 93 mg/dL (74-106); Magnesium 1.9 mg/dL (1.6-2.6); Potassium 3.7 mmol/L (3.5-5.1); Protein, Total 7.4 g/dL (6.4-8.2); Sodium Level 141 mmol/L (136-145)
[2020-02-20 14:17] LABS: Vitamin D,25 Hydroxy 49.3 ng/mL
== END ==
LOC: OLS.ACW300 05:00
PROVIDERS: PCP Family Medicine; Referring Provider Family Medicine; Visit Provider Family Medicine
DX: G37.3 Acute transverse myelitis in demyelinating disease of central nervous system (principal); D63.8 Anemia in other chronic diseases classified elsewhere; G82.54 Quadriplegia, C5-C7 incomplete; G82.22 Paraplegia, incomplete; M62.82 Rhabdomyolysis
CPT/HCPCS: 36415; 80053; 82306; 83735; 84443; 85027

== ENCOUNTER → 2020-03-03 12:48 | Outpatient (REF) | payer MEDICAID, SELFPAY | LOC: OLS.ACW300 12:48 | PROVIDERS: PCP Family Medicine; Referring Provider Family Medicine; Visit Provider Family Medicine | DX: Z03.818 Encounter for observation for suspected exposure to other biological agents ruled out (principal) | CPT/HCPCS: 87635; U0003 ==

== ENCOUNTER → 2020-03-10 15:00 | Outpatient (REF) | payer MEDICAID, SELFPAY ==
[2020-03-10 15:52] LABS: Hematocrit 43.9 % (40-54); Hemoglobin 14.7 g/dL (13.0-16.5); Mean Corp Hgb Conc 33.5 g/dL (32-36); Mean Corpuscular Hgb 31.1 pg (27.0-32.0); Mean Corpuscular Volume 92.8 fL (80-94); Mean Platelet Vol. 11.4 fl (6.2-12.0); Platelet Count 130 K/mm3 (150-450); RBC Distribution Width CV 12.5 % (11.6-14.6); Red Blood Count 4.73 M/mm3 (4.6-6.2); White Blood Count 4.1 K/mm3 (4.4-11.0)
[2020-03-10 16:13] LABS: Anion Gap 6 (5-15); BUN 17 mg/dL (7-18); Calcium,Total 8.9 mg/dL (8.5-10.1); Chloride 110 mmol/L (98-107); Creatinine, Serum 0.77 mg/dL (0.70-1.30); EST Glomerular Filtration Rate 127 mL/min (>60); Est Glom Filt Rate - Afr Amer 153 mL/min (>60); Glucose 120 mg/dL (74-106); Sodium Level 142 mmol/L (136-145)
== END ==
LOC: OLS.ACW300 15:00
PROVIDERS: PCP Family Medicine; Visit Provider Family Medicine
DX: G37.3 Acute transverse myelitis in demyelinating disease of central nervous system (principal); D63.8 Anemia in other chronic diseases classified elsewhere; G82.54 Quadriplegia, C5-C7 incomplete; G82.22 Paraplegia, incomplete; M62.82 Rhabdomyolysis
CPT/HCPCS: 36415; 80048; 85027

== ENCOUNTER → 2020-04-05 04:00 | Outpatient (REF) | payer MEDICAID, SELFPAY ==
[2020-04-05 08:49] LABS: Thyroid Stim Hormone (TSH) 0.93 uIU/mL (0.358-3.74)
== END ==
LOC: OLS.ACW300 04:00
PROVIDERS: PCP Family Medicine; Referring Provider Family Medicine; Visit Provider Family Medicine
DX: R53.83 Other fatigue (principal)
CPT/HCPCS: 36415; 84443

== ENCOUNTER → 2020-05-12 05:30 | Outpatient (REF) | payer MEDICAID, SELFPAY | LOC: OLS.ACW300 05:30 | PROVIDERS: PCP Family Medicine; Referring Provider Family Medicine; Visit Provider Family Medicine | DX: G37.3 Acute transverse myelitis in demyelinating disease of central nervous system (principal); D63.8 Anemia in other chronic diseases classified elsewhere; G82.54 Quadriplegia, C5-C7 incomplete; G82.22 Paraplegia, incomplete; M62.82 Rhabdomyolysis | CPT/HCPCS: 36415 ==

== ENCOUNTER → 2020-08-26 14:40 | Outpatient (REF) | payer MEDICAID, SELFPAY | LOC: OLS.ACW300 14:40 | PROVIDERS: PCP Family Medicine; Referring Provider Family Medicine; Visit Provider Family Medicine | DX: S31.819A Unspecified open wound of right buttock, initial encounter (principal); G37.3 Acute transverse myelitis in demyelinating disease of central nervous system; D63.8 Anemia in other chronic diseases classified elsewhere; G82.54 Quadriplegia, C5-C7 incomplete; G82.22 Paraplegia, incomplete; M62.81 Muscle weakness (generalized) | CPT/HCPCS: 87070; 87077; 87186; 87205 ==

== ENCOUNTER → 2020-10-25 04:00 | Outpatient (REF) | payer MEDICAID, SELFPAY | LOC: OLS.ACW300 04:00 | PROVIDERS: PCP Family Medicine; Visit Provider Family Medicine | DX: G37.3 Acute transverse myelitis in demyelinating disease of central nervous system (principal); D63.8 Anemia in other chronic diseases classified elsewhere; G82.54 Quadriplegia, C5-C7 incomplete; G82.22 Paraplegia, incomplete; M62.81 Muscle weakness (generalized) | CPT/HCPCS: 36415 ==

== ENCOUNTER → 2020-12-09 05:00 | Outpatient (REF) | payer MEDICAID, SELFPAY ==
[2020-12-09 08:51] LABS: Hematocrit 43.3 % (40-54); Mean Corp Hgb Conc 32.3 g/dL (32-36); Mean Corpuscular Hgb 30.4 pg (27.0-32.0); Mean Corpuscular Volume 93.9 fL (80-94); Platelet Count 147 K/mm3 (150-450); RBC Distribution Width CV 13.3 % (11.6-14.6); RBC Distribution Width SD 46.6 fl (35.1-43.9); Red Blood Count 4.61 M/mm3 (4.6-6.2); White Blood Count 4.7 K/mm3 (4.4-11.0)
[2020-12-09 09:15] LABS: ALB/GLOB Ratio 0.8 RATIO (0.9-2.4); AST(SGOT) 15 U/L (15-37); Alanine Aminotransfer ALT/SGPT 25 U/L (16-61); Albumin, Serum 3.3 g/dL (3.2-5.0); Alkaline Phosphatase 78 U/L (45-117); Anion Gap 5 (5-15); BUN 14 mg/dL (7-18); BUN/Creat Ratio 29.5 RATIO (10-20); Calcium,Total 8.8 mg/dL (8.5-10.1); Chloride 108 mmol/L (98-107); Cholesterol 152 mg/dL (200); Creatinine, Serum 0.48 mg/dL (0.70-1.30); EST Glomerular Filtration Rate 220 mL/min (>60); Est Glom Filt Rate - Afr Amer 266 mL/min (>60); Globulin 3.9 g/dL (2.2-4.2); Glucose 103 mg/dL (74-106); High Density Lipoprotein 31 mg/dL; Magnesium 2.1 mg/dL (1.6-2.6); Potassium 4.1 mmol/L (3.5-5.1); Protein, Total 7.2 g/dL (6.4-8.2); Sodium Level 141 mmol/L (136-145); Thyroid Stim Hormone (TSH) 1.28 uIU/mL (0.358-3.74); Triglycerides 89 mg/dL; Very Low Density Lipoprotein 18 mg/dL (5-40)
[2020-12-09 09:37] LABS: Vitamin D,25 Hydroxy 58.3 ng/mL
== END ==
LOC: OLS.ACW300 05:00
PROVIDERS: PCP Family Medicine; Visit Provider Family Medicine
DX: G37.3 Acute transverse myelitis in demyelinating disease of central nervous system (principal); D63.8 Anemia in other chronic diseases classified elsewhere; G82.54 Quadriplegia, C5-C7 incomplete; G82.22 Paraplegia, incomplete; M62.81 Muscle weakness (generalized)
CPT/HCPCS: 36415; 80053; 80061; 82306; 83036; 83735; 84443; 85027

== ENCOUNTER → 2020-12-17 08:18 | Outpatient (REF) | payer MEDICAID, SELFPAY | LOC: OLS.ACW300 08:18 | PROVIDERS: PCP Family Medicine; Visit Provider Family Medicine | DX: G37.3 Acute transverse myelitis in demyelinating disease of central nervous system (principal); D63.8 Anemia in other chronic diseases classified elsewhere; G82.54 Quadriplegia, C5-C7 incomplete; G82.22 Paraplegia, incomplete; M62.81 Muscle weakness (generalized); T14.8XXA Other injury of unspecified body region, initial encounter | CPT/HCPCS: 87070; 87077; 87186; 87205 ==

== ENCOUNTER → 2021-04-12 | Outpatient (REF) | payer MEDICAID, SELFPAY ==
[2021-04-12 08:49] LABS: Hematocrit 39.4 % (40-54); Hemoglobin 13.1 g/dL (13.0-16.5); Mean Corp Hgb Conc 33.2 g/dL (32-36); Mean Corpuscular Hgb 30.8 pg (27.0-32.0); Mean Corpuscular Volume 92.5 fL (80-94); Platelet Count 147 K/mm3 (150-450); RBC Distribution Width CV 13.6 % (11.6-14.6); RBC Distribution Width SD 46.3 fl (35.1-43.9); Red Blood Count 4.26 M/mm3 (4.6-6.2); White Blood Count 4.6 K/mm3 (4.4-11.0)
[2021-04-12 09:17] LABS: Hemoglobin A1c 4.9 % (3.8-5.6)
[2021-04-12 09:19] LABS: ALB/GLOB Ratio 0.9 RATIO (0.9-2.4); AST(SGOT) 13 U/L (15-37); Alanine Aminotransfer ALT/SGPT 27 U/L (16-61); Albumin, Serum 3.3 g/dL (3.2-5.0); Alkaline Phosphatase 78 U/L (45-117); Anion Gap 6 (5-15); BUN 17 mg/dL (7-18); Calcium,Total 8.6 mg/dL (8.5-10.1); Chloride 106 mmol/L (98-107); Cholesterol 142 mg/dL (200); Creatinine, Serum 0.53 mg/dL (0.70-1.30); EST Glomerular Filtration Rate 193 mL/min (>60); Est Glom Filt Rate - Afr Amer 234 mL/min (>60); Globulin 3.7 g/dL (2.2-4.2); Glucose 128 mg/dL (74-106); High Density Lipoprotein 26 mg/dL; Potassium 3.9 mmol/L (3.5-5.1); Sodium Level 140 mmol/L (136-145); Thyroid Stim Hormone (TSH) 1.52 uIU/mL (0.358-3.74); Triglycerides 145 mg/dL; Very Low Density Lipoprotein 29 mg/dL (5-40)
[2021-04-12 15:06] LABS: Vitamin D,25 Hydroxy 52.4 ng/mL
== END | disposition home or self-care (01) ==
LOC: OLS.ACW300 05:00
PROVIDERS: PCP Family Medicine; Visit Provider Family Medicine
DX: G37.3 Acute transverse myelitis in demyelinating disease of central nervous system (principal); G82.54 Quadriplegia, C5-C7 incomplete; G82.22 Paraplegia, incomplete; Z93.3 Colostomy status; E43 Unspecified severe protein-calorie malnutrition; D63.8 Anemia in other chronic diseases classified elsewhere; M62.81 Muscle weakness (generalized); M62.82 Rhabdomyolysis; E55.9 Vitamin D deficiency, unspecified
CPT/HCPCS: 36415; 80053; 80061; 82306; 83036; 84443; 85027

== ENCOUNTER 2021-05-02 05:00 | Outpatient (REF) | payer MEDICAID, SELFPAY | END 2021-05-02 23:59 | disposition home or self-care (01) | LOC: OLS.ACW300 05:00 | PROVIDERS: PCP Family Medicine; Visit Provider Family Medicine | DX: G37.3 Acute transverse myelitis in demyelinating disease of central nervous system (principal); G82.54 Quadriplegia, C5-C7 incomplete; G82.22 Paraplegia, incomplete; D63.8 Anemia in other chronic diseases classified elsewhere; M62.81 Muscle weakness (generalized) | CPT/HCPCS: 36415 ==

== ENCOUNTER → 2021-06-14 | Outpatient (REF) | payer MEDICAID, SELFPAY ==
[2021-06-14 22:27] LABS: Amphetamine Urine VISTA POSITIVE (<1000 ng/mL); Barbiturate Urine VISTA NEGATIVE (< 200 ng/mL); Benzodiazepine Urine VISTA NEGATIVE (< 200 ng/mL); Cocaine Urine VISTA NEGATIVE (< 300 ng/mL); Ecstacy Urine VISTA POSITIVE (< 500 ng/mL); Methadone Urine VISTA NEGATIVE (< 300 ng/mL); PCP Urine VISTA NEGATIVE (< 25 ng/mL); THC Urine VISTA POSITIVE (< 50 ng/mL); Vista UDS pH Range 6
== END | disposition home or self-care (01) ==
LOC: OLS.ACW300 20:30
PROVIDERS: PCP Family Medicine; Visit Provider Family Medicine
DX: G37.3 Acute transverse myelitis in demyelinating disease of central nervous system (principal); G82.54 Quadriplegia, C5-C7 incomplete; G82.22 Paraplegia, incomplete; D63.8 Anemia in other chronic diseases classified elsewhere; M62.81 Muscle weakness (generalized); Z51.81 Encounter for therapeutic drug level monitoring
CPT/HCPCS: 80307

== ENCOUNTER → 2021-06-15 | Outpatient (REF) | payer MEDICAID, SELFPAY | END | disposition home or self-care (01) | LOC: OLS.ACW300 13:00 | PROVIDERS: PCP Family Medicine; Visit Provider Family Medicine | DX: G37.3 Acute transverse myelitis in demyelinating disease of central nervous system (principal); G82.54 Quadriplegia, C5-C7 incomplete; G82.22 Paraplegia, incomplete; D63.8 Anemia in other chronic diseases classified elsewhere; M62.81 Muscle weakness (generalized); Z51.81 Encounter for therapeutic drug level monitoring | CPT/HCPCS: 36415 ==